=== PATIENT | male | born 1945 | race Caucasian/White ===

== ENCOUNTER → 2017-10-12 10:05 | Outpatient (CLI) | payer MEDICARE, OTHER, SELFPAY ==
[2017-10-12 10:56] LABS: BUN Creatinine Ratio 23.3 (6-22); Blood Urea Nitrogen 28 mg/dL (9-20); Estimated Glomerular Filt Rate 59.2 mL/min (>60)
== END ==
PROVIDERS: Visit Provider Family Medicine
DX: I10 Essential (primary) hypertension (principal); N18.3 Chronic kidney disease, stage 3 (moderate)
CPT/HCPCS: 36415; 82565; 84520

== ENCOUNTER → 2017-10-27 08:47 | Outpatient (CLI) | payer MEDICARE, OTHER, SELFPAY ==
[2017-10-27 10:21] LABS: Alanine Aminotransferase 35 IU/L (21-72); Albumin 4.2 g/dL (3.5-5.0); Albumin Globulin Ratio 1.5 (1.0-2.8); Alkaline Phosphatase 71 U/L (38-126); Aspartate Aminotransferase 39 IU/L (17-59); BUN Creatinine Ratio 20.8 (6-22); Bilirubin Total 0.7 mg/dL (0.2-1.3); Blood Urea Nitrogen 27 mg/dL (9-20); Calcium 9.6 mg/dL (8.4-10.2); Carbon Dioxide 27 mmol/L (22-32); Chloride 103 mmol/L (98-107); Cholesterol 131 mg/dL (140-199); Creatine Kinase 420 U/L (55-170); Globulin 2.8 g/dL (1.7-4.1); Glucose 96 mg/dL (80-110); HDL Cholesterol 41 mg/dL (40-60); HEMOLYSIS < 15 (0-50); LDL Cholesterol Calculated 79 mg/dL (<100); Potassium 4.3 mmol/L (3.4-5.1); Sodium 141 mmol/L (137-145); Triglycerides 54 mg/dL (35-150)
[2017-10-29 20:56] LABS: Aldolase 6.3 U/L (< 8.2)
== END ==
PROVIDERS: Visit Provider Internal Medicine Cardiovascular Disease
DX: I48.0 Paroxysmal atrial fibrillation (principal); E78.5 Hyperlipidemia, unspecified; I10 Essential (primary) hypertension; R74.8 Abnormal levels of other serum enzymes
CPT/HCPCS: 36415; 80053; 80061; 82085; 82550; 84443

== ENCOUNTER → 2017-11-24 12:00 | Outpatient (CLI) | payer MEDICARE, OTHER, SELFPAY ==
[2017-11-24 13:17] LABS: Creatine Kinase 345 U/L (55-170)
== END ==
PROVIDERS: Visit Provider Internal Medicine Cardiovascular Disease
DX: R74.8 Abnormal levels of other serum enzymes (principal)
CPT/HCPCS: 36415; 82550

== ENCOUNTER → 2018-01-25 09:02 | Outpatient (CLI) | payer OTHER, MEDICARE, SELFPAY ==
[2018-01-25 09:45] LABS: BUN Creatinine Ratio 26.7 (6-22); Blood Urea Nitrogen 32 mg/dL (9-20); Calcium 9.7 mg/dL (8.4-10.2); Carbon Dioxide 29 mmol/L (22-32); Chloride 102 mmol/L (98-107); Estimated Glomerular Filt Rate 59.2 mL/min (>60); Glucose 93 mg/dL (80-110); HEMOLYSIS < 15 (0-50); Potassium 4.7 mmol/L (3.4-5.1); Sodium 141 mmol/L (137-145)
== END ==
PROVIDERS: PCP Family Medicine; Visit Provider Family Medicine
DX: I10 Essential (primary) hypertension (principal); N18.3 Chronic kidney disease, stage 3 (moderate)
CPT/HCPCS: 36415; 80048

== ENCOUNTER → 2018-02-01 12:38 | Outpatient (CLI) | payer OTHER, MEDICARE, SELFPAY ==
[2018-02-01 13:39] LABS: Creatine Kinase 84 U/L (55-170)
[2018-02-01 15:50] LABS: BUN Creatinine Ratio 24.7 (6-22); Blood Urea Nitrogen 37 mg/dL (9-20); Calcium 9.8 mg/dL (8.4-10.2); Carbon Dioxide 30 mmol/L (22-32); Chloride 99 mmol/L (98-107); Estimated Glomerular Filt Rate 45.7 mL/min (>60); Glucose 95 mg/dL (80-110); HEMOLYSIS 16 (0-50); Potassium 4.8 mmol/L (3.4-5.1); Sodium 138 mmol/L (137-145)
== END ==
PROVIDERS: PCP Family Medicine; Visit Provider Internal Medicine Cardiovascular Disease
DX: R74.8 Abnormal levels of other serum enzymes (principal)
CPT/HCPCS: 36415; 80048; 82550

== ENCOUNTER → 2018-02-25 09:03 | Outpatient (CLI) | payer OTHER, MEDICARE, SELFPAY ==
[2018-02-25 09:49] LABS: Add Manual Diff / Slide Review NO; Eosinophils Percent Auto 7.1 % (2-4); Hematocrit 41.1 % (41-53); Hemoglobin 13.7 g/dL (13.5-17.5); Lymphocytes Percent Auto 19.6 % (25-40); Mean Corpuscular HGB Conc 33.3 % (30-36); Mean Corpuscular Hemoglobin 29.4 PG (26-34); Mean Corpuscular Volume 88.3 fL (80-100); Monocytes Percent Auto 8.3 % (3-14); Neutrophils Absolute Auto 2900 /uL (1500-7000); Platelet Count 194 X10^3/uL (150-400); Red Blood Cell Count 4.66 X10^6/uL (4.5-5.9); Red Cell Distribution Width 12.9 % (11.6-14.8); White Blood Cell Count 4.6 X10^3/uL (4.5-11.0)
[2018-02-25 10:16] LABS: Alanine Aminotransferase 34 IU/L (21-72); Albumin 4.4 g/dL (3.5-5.0); Albumin Globulin Ratio 1.5 (1.0-2.8); Alkaline Phosphatase 80 U/L (38-126); Aspartate Aminotransferase 30 IU/L (17-59); Bilirubin Total 0.5 mg/dL (0.2-1.3); Blood Urea Nitrogen 30 mg/dL (9-20); Calcium 9.6 mg/dL (8.4-10.2); Carbon Dioxide 26 mmol/L (22-32); Chloride 103 mmol/L (98-107); Cholesterol 250 mg/dL (140-199); Estimated Glomerular Filt Rate 59.2 mL/min (>60); Globulin 2.9 g/dL (1.7-4.1); Glucose 95 mg/dL (80-110); HDL Cholesterol 45 mg/dL (40-60); HEMOLYSIS < 15 (0-50); LDL Cholesterol Calculated 195 mg/dL (<100); Potassium 4.3 mmol/L (3.4-5.1); Sodium 139 mmol/L (137-145); Total Protein 7.3 g/dL (6.3-8.2); Triglycerides 49 mg/dL (35-150)
[2018-02-25 10:46] LABS: TSH w/ Reflex to FT4 1.46 uIU/mL (0.47-4.68)
[2018-02-25 10:48] LABS: Prostate Specific Antigen Scrn 2.03 ng/mL (0.1-4.0)
== END ==
PROVIDERS: PCP Family Medicine; Visit Provider Family Medicine
DX: I10 Essential (primary) hypertension (principal); E03.9 Hypothyroidism, unspecified; I48.0 Paroxysmal atrial fibrillation; N18.3 Chronic kidney disease, stage 3 (moderate); N40.1 Benign prostatic hyperplasia with lower urinary tract symptoms; R35.1 Nocturia; Z12.5 Encounter for screening for malignant neoplasm of prostate
CPT/HCPCS: 36415; 80053; 80061; 84443; 85025; G0103

== ENCOUNTER → 2018-03-23 13:48 | Outpatient (CLI) | payer OTHER, MEDICARE, SELFPAY ==
[2018-03-23 14:30] LABS: BUN Creatinine Ratio 23.6 (6-22); Blood Urea Nitrogen 26 mg/dL (9-20); Calcium 9.6 mg/dL (8.4-10.2); Carbon Dioxide 26 mmol/L (22-32); Chloride 101 mmol/L (98-107); Estimated Glomerular Filt Rate > 60.0 mL/min (>60); Glucose 98 mg/dL (80-110); HEMOLYSIS < 15 (0-50); Potassium 4.1 mmol/L (3.4-5.1); Sodium 137 mmol/L (137-145)
== END ==
PROVIDERS: Family Provider Family Medicine; PCP Family Medicine; Visit Provider Internal Medicine Cardiovascular Disease
DX: R06.02 Shortness of breath (principal)
CPT/HCPCS: 36415; 80048

== ENCOUNTER → 2018-03-24 10:28 | Outpatient (CLI) | payer OTHER, MEDICARE, SELFPAY ==
[2018-03-24 10:55] LABS: Add Manual Diff / Slide Review NO; Basophils Absolute Auto 100 /uL (0-100); Eosinophils Absolute Auto 100 /uL (0-450); Eosinophils Percent Auto 2.4 % (2-4); Hematocrit 41.3 % (41-53); Hemoglobin 13.7 g/dL (13.5-17.5); Lymphocytes Absolute Auto 800 /uL (1100-4500); Lymphocytes Percent Auto 15.3 % (25-40); Mean Corpuscular HGB Conc 33.2 % (30-36); Mean Corpuscular Hemoglobin 29.4 PG (26-34); Mean Corpuscular Volume 88.5 fL (80-100); Monocytes Absolute Auto 800 /uL (0-900); Monocytes Percent Auto 13.9 % (3-14); Neutrophils Absolute Auto 3700 /uL (1500-7000); Neutrophils Percent Auto 67.4 % (50-75); Platelet Count 176 X10^3/uL (150-400); Red Blood Cell Count 4.66 X10^6/uL (4.5-5.9); Red Cell Distribution Width 12.9 % (11.6-14.8); White Blood Cell Count 5.4 X10^3/uL (4.5-11.0)
[2018-03-24 11:48] LABS: Vitamin B12 749 pg/mL (239-931)
== END ==
PROVIDERS: Family Provider Family Medicine; PCP Family Medicine; Visit Provider Internal Medicine Cardiovascular Disease
DX: R06.02 Shortness of breath (principal); R41.3 Other amnesia
CPT/HCPCS: 36415; 82607; 85025

== ENCOUNTER → 2018-05-31 09:29 | Outpatient (CLI) | payer OTHER, MEDICARE, SELFPAY ==
--- NOTE | 2018-05-31 09:33 | DI.RAD.S_ITS ---
PROCEDURE: XR CHEST 2V INDICATIONS: elevated hemidiahpram TECHNIQUE: 2 views of the chest were acquired. COMPARISON: [facility], CR, XR CHEST 1 VIEW, 01/28/2018, 19:29. FINDINGS: Surgical changes and devices: None. Lungs and pleura: Lungs are clear. No pleural effusions or pneumothorax. Chronic right hemidiaphragm elevation redemonstrated. Mediastinum: Mediastinal contours are normal. Heart size is normal. Bones and chest wall: No suspicious bony abnormalities. Soft tissues appear unremarkable. IMPRESSION: Chronic right hemidiaphragm elevation. No acute cardiopulmonary disease process. Dictated by: Carmen Massey MD, PhD on 05/31/2018 at 9:57 Approved by: Carmen Massey MD, PhD on 05/31/2018 at 9:58
== END ==
PROVIDERS: Family Provider Family Medicine; PCP Family Medicine; Visit Provider Family Medicine
DX: J98.6 Disorders of diaphragm (principal)
CPT/HCPCS: 71046

== ENCOUNTER → 2018-09-03 16:09 | Outpatient (CLI) | payer OTHER, MEDICARE, SELFPAY ==
--- NOTE | 2018-09-17 16:11 | PM.PFT.1 ---
Pulmonary Function Test Referral & Results Date Patient Seen: 09/03/18 Requesting provider: Bud Griffith Results: The spirometry demonstrates an FVC of 4.18 L which is 85% of predicted. The FEV1 was measured at 2.96 L which is 82% of predicted. The FEV1/FVC ratio was 71 which is 96% of predicted. Following the administration of bronchodilator there was no appreciable change. Lung volumes show an SVC of 3.68 L which is 72% of predicted. The diffusing capacity was measured at 20.66 which is 75% of predicted. No hemoglobin value was provided, so no correction for potential anemia could be made, if appropriate. The maximum voluntary ventilation was normal Interpretation: This study demonstrates mild obstructive lung disease without evidence of benefit following bronchodilator There is more pronounced production lung volumes suggesting more significant restrictive lung disease Minimal reduction in diffusing capacity suggesting some element of disease of the capillary alveolar level is also present Clinical correlation suggested
== END ==
PROVIDERS: Family Provider Family Medicine; PCP Family Medicine; Visit Provider Family Medicine
DX: J98.6 Disorders of diaphragm (principal)
CPT/HCPCS: 94060; 94726; 94729

== ENCOUNTER → 2018-12-01 08:44 | Outpatient (CLI) | payer OTHER, MEDICARE, SELFPAY ==
--- NOTE | 2018-12-01 08:52 | DI.RAD.S_ITS ---
PROCEDURE: XR CHEST 2V INDICATIONS: left hemidiaphrragm paralisis TECHNIQUE: 2 views of the chest were acquired. COMPARISON: [facility], CR, XR CHEST 2V, 05/31/2018, 9:34. CT pulmonary angiogram 03/23/2018. FINDINGS: Surgical changes and devices: None. Lungs and pleura: Lungs are clear. No consolidation. No pleural effusions or pneumothorax. Mediastinum: Again seen is asymmetric elevation of the right hemidiaphragm in comparison to the left, although less pronounced. Mediastinal contours are normal and unchanged. Heart size is normal. Bones and chest wall: No suspicious bony abnormalities. Soft tissues appear unremarkable. IMPRESSION: 1. Asymmetric elevation of the right hemidiaphragm compared to the left. Diagnostic considerations include diaphragmatic paralysis versus diaphragmatic eventration. Fluoroscopic sniff test could be performed for real-time evaluation of diaphragmatic motion. 2. Lungs are clear. Dictated by: Daren Marcus M.D. on 12/01/2018 at 10:10 Approved by: Daren Marcus M.D. on 12/01/2018 at 10:13
== END ==
PROVIDERS: PCP Family Medicine; Visit Provider Family Medicine
DX: J98.6 Disorders of diaphragm (principal)
CPT/HCPCS: 71046

== ENCOUNTER 2018-12-07 06:35 | Day surgery (SDC) | payer OTHER, SELFPAY ==
[2018-12-07 07:33] VITALS: BP 129/90; PULSE 55; RESP 15; TEMP 36.5; O2SAT 95; BMI 30.2
--- NOTE | 2018-12-07 07:35 | PM.HP.1 ---
History of Present Illness History of Present Illness Date Patient Seen: 12/07/18 Time Patient Seen: 07:35 Chief complaint: [id number] SCREENING COLONOSCOPY Narrative: This is a 73-year-old man with history of AFib, HTN, CKD, SUKI, hyperlipidemia, aortic regurg, and a family history of colon cancer in her mother diagnosed at age 65. His last colonoscopy was 5 years ago, and per the patient no polyps were found at that time. He denies any symptoms of melena, hematochezia, abdominal pain, unexplained weight loss. He says his shortness of breath has improved, and he is asymptomatic today. ROS: Thirteen system review is negative other than as mentioned below and in HPI. PE: GENERAL: Well groomed and cooperative. Appears stated age. Answers questions promptly and appropriately. Vital signs noted. HENT: Normocephalic, atraumatic. Hearing intact. Oral mucosa is pink and moist. EYES: Conjunctiva pink, sclera white, no periorbital swelling. CARDIOVASCULAR: Regular rate. No pedal edema. RESPIRATORY: Normal respiratory rate, breathing comfortably on room air. GASTROINTESTINAL: Abdomen soft and non-distended GENITALURINARY: No flank tenderness. MUSCULOSKELETAL: Normal coordination. Equal tone and mass bilaterally. SKIN: Warm, dry, soft, appropriate color for ethnicity. No other lesions, rashes, or wounds. NEURO: Alert and Oriented X 3. No sensory deficits, or cognitive issues. PSYCH: Appropriate affect and mood. Patient History Medical History Acquired hypothyroidism (Chronic) Aortic valve regurgitation (Chronic) Atrial fibrillation (Chronic ~1999) Benign prostatic hyperplasia with nocturia (Chronic) BPH (benign prostatic hyperplasia) (Chronic ~1999) Carpal tunnel syndrome (Chronic) Cataract (Chronic) Chicken pox (Resolved) Chronic back pain (Chronic) Foot pain (Chronic) GERD (gastroesophageal reflux disease) (Chronic ~1999) Hearing loss (Chronic) Hyperlipidemia (Chronic ~1993) Hypertension (Chronic) Hypertension (Chronic ~2013) Hypothyroidism (Chronic ~1999) Infection of pelvis (Chronic) Kidney disease (Chronic ~2014) Measles (Resolved) Mitral valve insufficiency (Chronic) MRSA (methicillin resistant Staphylococcus aureus) (Resolved) Mumps (Resolved) Osteomyelitis (Chronic ~2000) Paroxysmal atrial fibrillation (Chronic) Spinal stenosis (Chronic ~2012) Stage 3 chronic kidney disease (Chronic 02/26/15) Surgical History History of spinal surgery (Resolved ~2012) Status post transurethral resection of prostate (~2009) Family & Social History Family History Mother No problems noted. Tobacco & Substance use: Smoking Status Never smoker alcohol intake current Meds Home Medications and Allergies Home Medications Medication Instructions Recorded Confirmed Type alprazolam 0.5 mg tablet 0.5 mg PO ONCE 07/21/17 12/07/18 History apixaban 5 mg tablet 5 mg PO BID #180 tab 02/03/18 12/07/18 Rx diltiazem HCl 240 mg 240 mg PO QDAY #90 cap 02/03/18 12/07/18 Rx capsule,extended release 24 hr diltiazem HCl 60 mg tablet 60 mg PO .PRN #30 tab 02/03/18 12/07/18 Rx doxazosin 8 mg tablet 8 mg PO HS #90 tab 02/03/18 12/07/18 Rx duloxetine 60 mg capsule,delayed 60 mg PO DAILY #90 cap 02/03/18 12/07/18 Rx release gabapentin 600 mg tablet 600 mg PO TID #270 tab 02/03/18 12/07/18 Rx levothyroxine 100 mcg tablet 100 mcg PO QAM #90 tab 02/03/18 12/07/18 Rx lisinopril 20 mg tablet 20 mg PO DAILY #90 tab 02/03/18 12/07/18 Rx rosuvastatin 10 mg tablet 5 mg PO .HS #45 tab 02/03/18 12/07/18 Rx rosuvastatin 5 mg tablet 5 mg PO DAILY 03/24/18 12/07/18 History ranitidine HCl 150 mg tablet 150 mg PO DAILY #90 tab 04/27/18 12/07/18 Rx Allergies Allergy/AdvReac Type Severity Reaction Status Date / Time venom-honey bee Allergy Mild LOCALIZED Verified 09/14/18 13:47 [bee venom (honey bee)] SWELLING atorvastatin [ATORVASTATIN] AdvReac Unknown MOOD Verified 09/14/18 13:47 DISORDER, ANGER Assessment & Plan Assessment and plan (1) Colon cancer high risk: Current visit: Yes Status: Acute Assessment & Plan narrative: The risks and benefits of colonoscopy and possible polypectomy were discussed the patient including risks of bleeding or perforation, need for surgical procedures. The patient desires to proceed with his screening colonoscopy.
[2018-12-07] MEDS: MIDAZOLAM 5 MG/5 ML VIAL IV (08:26)
[2018-12-07] MEDS: fentaNYL 250 MCG/5 ML INJ IV (08:26)
--- NOTE | 2018-12-07 08:29 | PM.OP.ENDO ---
Operative Date/Time/Diagnoses Date of procedure: 12/07/18 Time of procedure: 08:29 Pre-op diagnosis: Family history of colon cancer in a primary relative Post-op diagnosis: same Procedure & Clinicians Study performed: Screening colonoscopy to hepatic flexure Indications: Patient with family history of colon cancer in a primary relative. Surgeon: Velma Richard Procedure Notes SCOAP/Timeout: performed Procedure in detail: The patient was brought to the room and placed in left lateral decubitus position with all bony prominences padded. A time-out was performed and then the patient was given procedural sedation starting with 4 mg of Versed and 100 mg of fentanyl. Vitals were monitored throughout the procedure and remained stable. Once adequately sedated the procedure was begun. A rectal exam was performed revealing no abnormalities. The colonoscope was then introduced to the rectum and advanced in the usual fashion. The colon was very tortuous and floppy, and due to the looping of the scope we are now but able to get past the hepatic flexure. From that vantage point I was able to view the ascending colon, and no abnormalities were seen. The Cecum was identified by the mucosal try fold, and the ileocecal valve, but close of viewing of the cecum and the appendiceal orifice was not possible. The scope was then retracted while rotating side to side and examining each mucosal fold. Diverticulosis was seen in the sigmoid colon, with medium and small mouth diverticula. A few large mouth diverticula with false passages were seen in the distal sigmoid. No other abnormalities were noted on withdrawal of the scope. At the conclusion procedure retroflexion was performed and small grade 1-2 internal hemorrhoids without stigmata of bleeding were seen.. The scope was then withdrawn from the rectum the procedure was concluded. The patient tolerated the procedure well was transferred to the PACU in stable condition. Scope withdrawal time: 8 Sedation minutes: 25 Findings: diverticulosis Specimen(s): none sent Complications: none Impression: Diverticulosis, otherwise normal colon to the hepatic flexure Post-procedure Recommendations: Colonscopy in 5 years (Due to family history, and colonoscopy to hepatic flexure) Follow up: as needed Disposition: PACU
[2018-12-07 08:30] VITALS: BP 98/52; PULSE 53; RESP 10; TEMP 36.9; O2SAT 95
[2018-12-07 08:35] VITALS: BP 108/56; PULSE 61; RESP 12; TEMP 36.9; O2SAT 95
[2018-12-07 08:40] VITALS: BP 100/53; PULSE 52; RESP 12; O2SAT 95
[2018-12-07 08:44] VITALS: BP 106/56; PULSE 60; RESP 16; TEMP 37.2; O2SAT 95
[2018-12-07 08:55] VITALS: BP 105/55; PULSE 60; RESP 16; O2SAT 95
== END 2018-12-07 09:00 | disposition home or self-care (01) ==
PROVIDERS: PCP Family Medicine; Visit Provider Surgery
PROC: 0DJD8ZZ Inspection of Lower Intestinal Tract, Via Natural or Artificial Opening Endoscopic (ICD-10-PCS; CPT 45378; principal; 2018-12-07 07:45)
DX: Z12.11 Encounter for screening for malignant neoplasm of colon (principal); Z80.0 Family history of malignant neoplasm of digestive organs; I48.91 Unspecified atrial fibrillation; N18.9 Chronic kidney disease, unspecified; G47.33 Obstructive sleep apnea (adult) (pediatric); E78.5 Hyperlipidemia, unspecified; K57.30 Diverticulosis of large intestine without perforation or abscess without bleeding; K64.0 First degree hemorrhoids
CPT/HCPCS: 45378; 99152; J2250; J3010

== ENCOUNTER → 2019-03-24 15:56 | Outpatient (CLI) | payer OTHER, MEDICARE, SELFPAY ==
--- NOTE | 2019-03-24 15:59 | DI.RAD.S_ITS ---
PROCEDURE: XR CHEST 2V INDICATIONS: 6 mo fu hemidiaphragm paralysis TECHNIQUE: 2 views of the chest were acquired. COMPARISON: [facility], CR, XR CHEST 2V, 12/01/2018, 8:49. FINDINGS: Surgical changes and devices: None. Lungs and pleura: Low lung volumes with scattered subsegmental atelectasis/scarring. Elevation of the right hemidiaphragm although to a lesser extent compared to the prior study dated 12/01/18. No pleural effusions or pneumothorax. Mediastinum: Mediastinal contours are normal. Heart size is normal. Bones and chest wall: No suspicious bony abnormalities. Soft tissues appear unremarkable. IMPRESSION: Low lung volumes with scattered subsegmental atelectasis/scarring. Persistent elevation of the right hemidiaphragm, although less conspicuous since the prior study, however unclear if this appearance is related to respiratory phase. Dictated by: Andrew Jacob M.D. on 03/24/2019 at 16:34 Approved by: Andrew Jacob M.D. on 03/24/2019 at 16:35
== END ==
PROVIDERS: PCP Family Medicine; Referring Provider Family Medicine; Visit Provider Family Medicine
DX: J98.6 Disorders of diaphragm (principal)
CPT/HCPCS: 71046

== ENCOUNTER → 2019-03-25 08:41 | Outpatient (CLI) | payer OTHER, MEDICARE, SELFPAY ==
[2019-03-25 09:27] LABS: Hematocrit 41.2 % (41-53); Hemoglobin 14.1 g/dL (13.5-17.5); Mean Corpuscular HGB Conc 34.1 % (30-36); Mean Corpuscular Hemoglobin 29.9 PG (26-34); Mean Corpuscular Volume 87.7 fL (80-100); Platelet Count 181 X10^3/uL (150-400); White Blood Cell Count 7.1 X10^3/uL (4.5-11.0)
[2019-03-25 09:49] LABS: Alanine Aminotransferase 25 IU/L (<50); Albumin 4.3 g/dL (3.5-5.0); Albumin Globulin Ratio 1.3 (1.0-2.8); Alkaline Phosphatase 95 U/L (38-126); Aspartate Aminotransferase 36 IU/L (17-59); BUN Creatinine Ratio 20.9 (6-22); Bilirubin Total 0.5 mg/dL (0.2-1.3); Blood Urea Nitrogen 23 mg/dL (9-20); Calcium 9.7 mg/dL (8.4-10.2); Carbon Dioxide 25 mmol/L (22-32); Chloride 104 mmol/L (98-107); Cholesterol 133 mg/dL (140-199); Estimated Glomerular Filt Rate > 60.0 mL/min (>60); Globulin 3.2 g/dL (1.7-4.1); Glucose 113 mg/dL (80-110); HDL Cholesterol 33 mg/dL (40-60); HEMOLYSIS < 15 (0-50); LDL Cholesterol Calculated 88 mg/dL (<100); Neutrophils Absolute Manual 5751 /uL (3000-5900); Sodium 139 mmol/L (137-145); Total Cells Counted 100; Total Protein 7.5 g/dL (6.3-8.2); Triglycerides 58 mg/dL (35-150)
[2019-03-25 09:50] LABS: RBC Morphology Normal Morphology
[2019-03-25 10:14] LABS: Prostate Specific Antigen Scrn 1.91 ng/mL (0.1-4.0)
[2019-03-25 10:26] LABS: TSH w/ Reflex to FT4 2.21 uIU/mL (0.47-4.68)
== END ==
PROVIDERS: PCP Family Medicine; Referring Provider Family Medicine; Visit Provider Family Medicine
DX: E03.9 Hypothyroidism, unspecified (principal); E78.5 Hyperlipidemia, unspecified; G47.33 Obstructive sleep apnea (adult) (pediatric); I48.0 Paroxysmal atrial fibrillation; N40.1 Benign prostatic hyperplasia with lower urinary tract symptoms; R35.1 Nocturia; Z12.5 Encounter for screening for malignant neoplasm of prostate
CPT/HCPCS: 36415; 80053; 80061; 84443; 85025; G0103

== ENCOUNTER → 2020-03-15 14:32 | Outpatient (CLI) | payer OTHER, MEDICARE, SELFPAY ==
--- NOTE | 2020-03-15 15:16 | DI.RAD.S_ITS ---
PROCEDURE: XR ANKLE RT MIN 3V INDICATIONS: R ankle swelling and pain TECHNIQUE: 3 views of the ankle were acquired. COMPARISON: None. FINDINGS: Bones: No fractures or dislocations. Smooth, well corticated osseous density adjacent to the tip of the medial malleolus. Ankle mortise is normally aligned. No suspicious bony lesions. Soft tissues: No tibiotalar joint effusion. Achilles tendon appears normal. Mild medial lateral soft tissue swelling. IMPRESSION: Osseous density adjacent to the tip of the medial malleolus suspicious for remote injury versus bony ossicle. Dictated by: Flash Roy [facility] Interpreted: Carlos Shirley MD on 03/15/2020 at 15:47 Approved by: Carlos Shirley M.D. on 03/15/2020 at 17:01
[2020-03-15 15:18] LABS: Add Manual Diff / Slide Review NO; Basophils Absolute Auto 0 /uL (0-100); Basophils Percent Auto 0.6 % (0-2); Eosinophils Absolute Auto 400 /uL (0-450); Eosinophils Percent Auto 5.6 % (2-4); Hematocrit 41.9 % (41-53); Hemoglobin 13.6 g/dL (13.5-17.5); Lymphocytes Absolute Auto 1100 /uL (1100-4500); Lymphocytes Percent Auto 14.5 % (25-40); Mean Corpuscular HGB Conc 32.4 % (30-36); Mean Corpuscular Hemoglobin 28.9 PG (26-34); Mean Corpuscular Volume 89.1 fL (80-100); Monocytes Absolute Auto 600 /uL (0-900); Monocytes Percent Auto 7.7 % (3-14); Neutrophils Absolute Auto 5600 /uL (1500-7000); Neutrophils Percent Auto 71.6 % (50-75); Platelet Count 193 X10^3/uL (150-400); White Blood Cell Count 7.8 X10^3/uL (4.5-11.0)
[2020-03-15 18:05] LABS: C-Reactive Protein Quant 0.8 mg/dL (<1.0)
[2020-03-15 19:57] LABS: Alanine Aminotransferase 25 IU/L (<50); Albumin 4.3 g/dL (3.5-5.0); Albumin Globulin Ratio 1.4 (1.0-2.8); Alkaline Phosphatase 104 U/L (38-126); Aspartate Aminotransferase 64 IU/L (17-59); BUN Creatinine Ratio 26.8 (6-22); Bilirubin Total 0.4 mg/dL (0.2-1.3); Blood Urea Nitrogen 30 mg/dL (9-20); Calcium 9.8 mg/dL (8.4-10.2); Carbon Dioxide 27 mmol/L (22-32); Chloride 106 mmol/L (98-107); Estimated Glomerular Filt Rate > 60.0 mL/min (>60); Glucose 86 mg/dL (80-110); HEMOLYSIS < 15 (0-50); Sodium 138 mmol/L (137-145); Total Protein 7.3 g/dL (6.3-8.2); Uric Acid 5.4 mg/dL (3.5-8.5)
[2020-03-15 20:04] LABS: Erythrocyte Sedimentation Rate 11 MM/HR (0-15)
== END ==
PROVIDERS: PCP Family Medicine; Referring Provider Nurse Practitioner; Visit Provider Nurse Practitioner
DX: M25.473 Effusion, unspecified ankle (principal); M25.571 Pain in right ankle and joints of right foot
CPT/HCPCS: 36415; 73610; 80053; 84550; 85025; 85651; 86140

== ENCOUNTER → 2020-03-29 07:24 | Outpatient (CLI) | payer MEDICARE, OTHER, SELFPAY ==
[2020-03-29 08:27] LABS: Add Manual Diff / Slide Review NO; Basophils Absolute Auto 0 /uL (0-100); Basophils Percent Auto 0.7 % (0-2); Eosinophils Absolute Auto 300 /uL (0-450); Eosinophils Percent Auto 5.5 % (2-4); Hemoglobin 14.1 g/dL (13.5-17.5); Lymphocytes Absolute Auto 1000 /uL (1100-4500); Lymphocytes Percent Auto 16.5 % (25-40); Mean Corpuscular HGB Conc 32.7 % (30-36); Mean Corpuscular Hemoglobin 29.2 PG (26-34); Mean Corpuscular Volume 89.3 fL (80-100); Monocytes Absolute Auto 500 /uL (0-900); Monocytes Percent Auto 7.9 % (3-14); Neutrophils Absolute Auto 4000 /uL (1500-7000); Neutrophils Percent Auto 69.4 % (50-75); Platelet Count 179 X10^3/uL (150-400); Red Blood Cell Count 4.82 X10^6/uL (4.5-5.9); Red Cell Distribution Width 12.8 % (11.6-14.8); White Blood Cell Count 5.8 X10^3/uL (4.5-11.0)
[2020-03-29 08:59] LABS: Alanine Aminotransferase 23 IU/L (<50); Albumin 4.3 g/dL (3.5-5.0); Albumin Globulin Ratio 1.5 (1.0-2.8); Alkaline Phosphatase 89 U/L (38-126); Aspartate Aminotransferase 34 IU/L (17-59); BUN Creatinine Ratio 27.3 (6-22); Bilirubin Total 0.5 mg/dL (0.2-1.3); Blood Urea Nitrogen 33 mg/dL (9-20); Calcium 9.8 mg/dL (8.4-10.2); Carbon Dioxide 29 mmol/L (22-32); Chloride 103 mmol/L (98-107); Cholesterol 179 mg/dL (140-199); Estimated Glomerular Filt Rate 58.3 mL/min (>60); Globulin 2.9 g/dL (1.7-4.1); Glucose 101 mg/dL (80-110); HDL Cholesterol 46 mg/dL (40-60); HEMOLYSIS < 15 (0-50); LDL Cholesterol Calculated 119 mg/dL (<100); Potassium 4.2 mmol/L (3.4-5.1); Sodium 136 mmol/L (137-145); Total Protein 7.2 g/dL (6.3-8.2); Triglycerides 70 mg/dL (35-150)
[2020-03-29 09:27] LABS: Prostate Specific Antigen Scrn 1.73 ng/mL (0.1-4.0); Thyroid Stimulating Hormone 1.98 uIU/mL (0.47-4.68)
== END ==
PROVIDERS: PCP Family Medicine; Referring Provider Family Medicine; Visit Provider Family Medicine
DX: E03.9 Hypothyroidism, unspecified (principal); E78.5 Hyperlipidemia, unspecified; I10 Essential (primary) hypertension; N40.1 Benign prostatic hyperplasia with lower urinary tract symptoms; R35.1 Nocturia; Z12.5 Encounter for screening for malignant neoplasm of prostate
CPT/HCPCS: 36415; 80053; 80061; 84443; 85025; G0103

== ENCOUNTER 2020-07-25 18:06 | Emergency (ER) | payer OTHER, SELFPAY ==
[2020-07-25 18:10] VITALS: BP 185/92; PULSE 81; RESP 16; O2SAT 97
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
[2020-07-25 18:41] VITALS: PULSE 75; RESP 23; O2SAT 99
[2020-07-25 18:45] VITALS: BP 206/95; PULSE 73; RESP 22; O2SAT 99
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
[2020-07-25 19:00] VITALS: BP 159/75; PULSE 68; RESP 20; O2SAT 98
[2020-07-25 19:30] VITALS: BP 183/85; PULSE 67; RESP 18; O2SAT 99
== END 2020-07-25 19:33 | disposition home or self-care (01) ==
PROVIDERS: Emergency Provider Emergency Medicine; PCP Family Medicine
DX: S09.90XA Unspecified injury of head, initial encounter (principal); M25.552 Pain in left hip; V89.2XXA Person injured in unspecified motor-vehicle accident, traffic, initial encounter; Z79.01 Long term (current) use of anticoagulants
CPT/HCPCS: 70450; 72170; 99284

== ENCOUNTER → 2021-06-11 07:43 | Outpatient (CLI) | payer OTHER, SELFPAY ==
[2021-06-11 08:41] LABS: Add Manual Diff / Slide Review NO; Basophils Absolute Auto 0 /uL (0-100); Basophils Percent Auto 0.5 % (0-2); Eosinophils Absolute Auto 300 /uL (0-450); Eosinophils Percent Auto 4.7 % (2-4); Hematocrit 41.8 % (41-53); Lymphocytes Absolute Auto 900 /uL (1100-4500); Lymphocytes Percent Auto 14.7 % (25-40); Mean Corpuscular HGB Conc 33.5 % (30-36); Mean Corpuscular Hemoglobin 29.9 PG (26-34); Mean Corpuscular Volume 89.3 fL (80-100); Monocytes Absolute Auto 400 /uL (0-900); Monocytes Percent Auto 7.1 % (3-14); Neutrophils Absolute Auto 4500 /uL (1500-7000); Platelet Count 168 X10^3/uL (150-400); Red Blood Cell Count 4.68 X10^6/uL (4.5-5.9); Red Cell Distribution Width 13.9 % (11.6-14.8); White Blood Cell Count 6.2 X10^3/uL (4.5-11.0)
[2021-06-11 09:00] LABS: Alanine Aminotransferase 27 IU/L (<50); Albumin 4.3 g/dL (3.5-5.0); Albumin Globulin Ratio 1.5 (1.0-2.8); Alkaline Phosphatase 84 U/L (38-126); Aspartate Aminotransferase 37 IU/L (17-59); Bilirubin Total 0.6 mg/dL (0.2-1.3); Blood Urea Nitrogen 25 mg/dL (9-20); Calcium 9.7 mg/dL (8.4-10.2); Carbon Dioxide 30 mmol/L (22-32); Chloride 105 mmol/L (98-107); Cholesterol 173 mg/dL (140-199); Estimated Glomerular Filt Rate > 60 mL/min (>60); Globulin 2.8 g/dL (1.7-4.1); Glucose 104 mg/dL (80-110); HDL Cholesterol 48 mg/dL (40-60); HEMOLYSIS < 15 (0-50); LDL Cholesterol Calculated 112 mg/dL (<100); Potassium 4.3 mmol/L (3.4-5.1); Sodium 142 mmol/L (137-145); Total Protein 7.1 g/dL (6.3-8.2); Triglycerides 64 mg/dL (35-150)
[2021-06-11 09:28] LABS: TSH w/ Reflex to FT4 2.44 uIU/mL (0.47-4.68)
[2021-06-11 09:29] LABS: Prostate Specific Antigen 1.67 ng/mL (0.10-4.00)
== END ==
PROVIDERS: PCP Family Medicine; Referring Provider Family Medicine; Visit Provider Family Medicine
DX: E03.9 Hypothyroidism, unspecified (principal); E78.5 Hyperlipidemia, unspecified; I48.0 Paroxysmal atrial fibrillation
CPT/HCPCS: 36415; 80053; 80061; 84153; 84443; 85025

== ENCOUNTER → 2022-03-14 16:17 | Outpatient (CLI) | payer OTHER, SELFPAY ==
--- NOTE | 2022-03-14 16:20 | DI.MRI.S_ITS ---
PROCEDURE: MR LUMBAR SPINE WO CON INDICATIONS: lbp with weekness on left side TECHNIQUE: Noncontrast sagittal T1 spin echo and T2 fast echo, sagittal STIR, and T2 fast spin echo through the lumbar spine. In cases with scoliosis, additional coronal T2 fast spin echo may be performed. COMPARISON: [facility], , L-SPINE WITHOUT CONTRAST, 09/07/2012, 8:46. FINDINGS: Image quality: Excellent. Alignment and Curvature: No plain films are available for comparison, for numbering purposes. Thus, for the purposes of this examination, 5 lumbar type vertebral bodies will be presumed, as denoted on the montage panel. This should be confirmed and correlated with plain films, prior to any lumbar spinal intervention. There is loss of normal lumbar lordosis. 3 mm of retrolisthesis T12 on L1 and L1-L2. 4 mm of retrolisthesis of L2 on L3. 2 mm of retrolisthesis of L3 on L4. 3 mm of retrolisthesis of L4 on L5. Bone Marrow: Marrow is of normal overall signal. No acute vertebral body compression fractures. Mild reactive signal throughout the endplates of the thoracolumbar spine. Spinal Cord: Conus medullaris terminates at the lower L1 level. Visualized cord demonstrates normal signal and size. Paraspinous Soft Tissues: No paravertebral masses. T12-L1: Moderate disc height loss and desiccation. Mild diffuse disc bulge. Mild facet and ligamentum flavum hypertrophy. Mild canal stenosis. No foraminal stenosis. No significant change. L1-L2: Moderate disc desiccation. Mild disc height loss and diffuse disc bulge. Mild facet and ligamentum flavum hypertrophy. Mild canal stenosis. Mild bilateral foraminal stenosis. L2-L3: Moderate disc desiccation. Mild disc height loss and diffuse disc bulge. Mild facet and ligamentum flavum hypertrophy. Mild canal stenosis. Mild bilateral foraminal stenosis. No significant change. L3-L4: Severe disc height loss and desiccation. Mild diffuse disc bulge. Mild facet and ligamentum flavum hypertrophy. Mild epidural lipomatosis. Mild canal stenosis. Moderate to severe right and moderate left foraminal stenosis. Mild right L3 nerve root compression. No significant change. L4-L5: Moderate disc height loss and desiccation. Mild diffuse disc bulge. Mild facet and ligamentum flavum hypertrophy. Mild epidural lipomatosis. Mild canal stenosis. Moderate subarticular foraminal stenosis bilaterally. No significant change. L5-S1: Moderate disc height loss and desiccation. Mild diffuse disc bulge. Moderate bilateral facet hypertrophy. Mild canal stenosis. Severe left and moderate right subarticular foraminal stenosis. Left L5 nerve root compression. No significant change. IMPRESSION: 1. Multilevel degenerative disc and facet disease, as well as ligamentum flavum hypertrophy and epidural lipomatosis. 2. Mild multilevel canal stenosis. 3. Multilevel foraminal stenoses, worst at L3-L4 and L5-S1 where there is associated intraforaminal nerve root compression. Recommend correlation with clinical symptoms to ascertain relevance of these findings. 4. 5 lumbar type vertebral bodies were presumed for the current report. Plain films of the lumbar spine are recommended for confirmation, prior to any lumbar spinal intervention. Dictated by: Grant Schmidt M.D. on 03/17/2022 at 8:26 Approved by: Grant Schmidt M.D. on 03/17/2022 at 8:47
== END ==
PROVIDERS: PCP Family Medicine; Referring Provider Family Medicine; Visit Provider Family Medicine
DX: M51.16 Intervertebral disc disorders with radiculopathy, lumbar region (principal); M51.17 Intervertebral disc disorders with radiculopathy, lumbosacral region; M48.061 Spinal stenosis, lumbar region without neurogenic claudication; M48.07 Spinal stenosis, lumbosacral region
CPT/HCPCS: 72148

== ENCOUNTER → 2022-03-19 09:47 | Outpatient (CLI) | payer OTHER, SELFPAY ==
--- NOTE | 2022-03-19 09:49 | DI.RAD.S_ITS ---
PROCEDURE: XR LUMBAR SPINE 2-3V INDICATIONS: low back pain with sciatica on left side TECHNIQUE: 3 views of the lumbar spine were acquired. COMPARISON: [facility], MR, MR LUMBAR SPINE WO CON, 03/14/2022, 17:09. FINDINGS: Bones: 5 [id number] vertebrae are present. Mild left convexity curvature centered at L2-L3. Severe multilevel degenerative changes with disc height loss, endplate spurring, and facet arthropathy. 3 millimeters retrolisthesis L2 on L3, 4 millimeters retrolisthesis L1 on L2. No vertebral body compression fractures. No suspicious bony lesions. Soft tissues: Overlying bowel gas pattern is normal. No suspicious soft tissue calcifications. IMPRESSION: Multilevel degenerative changes of the lumbar spine. Dictated by: Aroldo Burrell M.D. on 03/19/2022 at 16:47 Approved by: Aroldo Burrell M.D. on 03/19/2022 at 17:02
== END ==
PROVIDERS: PCP Family Medicine; Referring Provider Family Medicine; Visit Provider Family Medicine
DX: M54.42 Lumbago with sciatica, left side (principal); M47.816 Spondylosis without myelopathy or radiculopathy, lumbar region
CPT/HCPCS: 72100

== ENCOUNTER 2022-03-22 19:28 | Emergency (ER) | payer OTHER, SELFPAY ==
[2022-03-22] VITALS (16 sets, daily range): BP systolic 118–174; BP diastolic 60–87; PULSE 49–73; RESP 14–31; TEMP 36.4; O2SAT 94–97; BMI 31.8
--- NOTE | 2022-03-22 19:50 | ED_ITS ---
HPI - Chest Pain General Chief Complaint: Chest Pain Stated Complaint: chest pressure/pounding x3 hours Time Seen by Provider: 03/22/22 19:49 Source: patient Mode of arrival: Ambulatory Limitations: no limitations History of Present Illness HPI narrative: 68-year-old gentleman with a history of severe aortic stenosis currently being worked up for TAVR, hypertension, hyperlipidemia, chronic back pain, atrial fibrillation post cardiac ablation in 2018 continues on apixaban. He had a heart catheterization in anticipation of the TAVR done 2 days ago at [facility]. Heart catheterization showed no significant coronary artery abnormalities or stenosis. 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 Does not describe it as pain, squeezing or palpitations. With previous episodes of atrial fibrillation he always knew that there was a rhythm change and he describes it similar to that. There is no diaphoresis, orthopnea, nausea and has not had any recent upper respiratory or other infectious etiologies. He notes that he sometimes feels slightly better when lying reclined. Symptoms have been ongoing now for approximately 8 hours. Related Data Home Medications Medication Instructions Recorded Confirmed rosuvastatin 10 mg tablet 5 mg PO DAILY 11/21/21 03/13/22 Previous Rx's Medication Instructions Recorded apixaban 5 mg tablet (Eliquis) 5 mg PO BID #180 tabs 04/04/21 betamethasone dipropionate 0.05 % 1 applic topical BID PRN rash #120 04/04/21 topical cream grams clobetasol 0.05 % topical cream 1 applic topical BID 2 weeks #60 04/04/21 grams diltiazem HCl 240 mg 240 mg PO QDAY #90 caps 04/04/21 capsule,extended release 24 hr diltiazem HCl 60 mg tablet 60 mg PO .PRN #60 tabs 04/04/21 doxazosin 8 mg tablet 8 mg PO HS #90 tabs 04/04/21 duloxetine 60 mg capsule,delayed 60 mg PO DAILY #90 caps 04/04/21 release epinephrine 0.3 mg/0.3 mL 0.3 mg (0.3 mL) IM ONCE #2 ea 04/04/21 injection, auto-injector (EpiPen 2-Justin) gabapentin 600 mg tablet 600 mg PO TID #270 tabs 04/04/21 (Neurontin) levothyroxine 100 mcg tablet 100 mcg PO QAM #90 tabs 04/04/21 triamcinolone acetonide 0.5 % 1 applic topical BID #60 grams 04/04/21 topical ointment lisinopril 40 mg tablet 40 mg PO BID #180 tabs 06/13/21 psyllium husk 3.4 gram/5.4 gram 1 tbsp PO BID #660 grams 06/13/21 oral powder (Metamucil) diclofenac sodium 1 % topical gel 4 g topical QID #100 grams 06/14/21 (Arthritis Pain (diclofenac)) alprazolam 0.5 mg tablet 0.5 mg PO ONCE #2 tabs 11/21/21 methylprednisolone 4 mg tablets in 4 mg PO DAILY #21 ea 03/13/22 a dose pack Allergies Allergy/AdvReac Type Severity Reaction Status Date / Time venom-honey bee Allergy Mild LOCALIZED Verified 03/13/22 13:41 [bee venom (honey bee)] SWELLING atorvastatin [ATORVASTATIN] AdvReac Unknown MOOD Verified 03/13/22 13:41 DISORDER, ANGER Review of Systems Review of Systems Narrative: Remainder of complete review of systems is otherwise unremarkable except for that included in the HPI. Patient History Medical History Aortic valve regurgitation Benign prostatic hyperplasia with nocturia BPH (benign prostatic hyperplasia) (~1999) Carpal tunnel syndrome Cataract Chicken pox Chronic back pain Colon cancer high risk Excessive daytime sleepiness Foot pain GERD (gastroesophageal reflux disease) (~1999) H/O severe sun exposure Hearing loss Hyperlipidemia (~1993) Hypertension Hypothyroidism (~1999) Infection of pelvis Kidney disease (~2014) Left arm weakness Lumbar degenerative disc disease Lumbar radiculopathy Measles Mental status change resolved Mitral valve insufficiency MRSA (methicillin resistant Staphylococcus aureus) Mumps Nose abnormality Obstructive sleep apnea of adult Osteomyelitis (~2000) Paroxysmal atrial fibrillation Spinal stenosis (~2012) Stage 3 chronic kidney disease (02/26/15) Surgical History History of spinal surgery (~2012) Status post transurethral resection of prostate (~2009) Family History Mother No problems noted. Social History marital status: (to Bucky) details: lives in [place] number of children: 2 household members: spouse lives independently: Yes caregiver/support person: No housing: house lyssa/sikh: Catholic Smoking Status: Never smoker alcohol intake: current substance use type: does not use Smoking Status: Never smoker Substance Use Type: does not use Exam Initial Vital Signs Initial Vital Signs: Vital Signs Temperature 97.6 F 03/22/22 19:33 Pulse Rate 68 03/22/22 19:33 Respiratory Rate 16 03/22/22 19:33 Blood Pressure 163/87 H 03/22/22 19:33 Oxygen Delivery Method 03/22/22 19:33 General: Healthy appearing, in no acute distress. Able to give a complete and coherent history. Well-nourished well-developed HEENT: Moist mucous membranes, normal sclera with reactive pupils, Neck: No JVD, supple Respiratory: Lungs are clear to auscultation, no wheezing no rales no rhonchi. Full and symmetrical air movement Cardiac: Regular rate and rhythm, 4/6 systolic ejection murmur Abdomen: Soft, nontender, good bowel tones, no flank pain Skin: Warm and dry, no rashes Neurologic: Grossly neurologically intact with no obvious asymmetries or abnormalities Extremities: No trauma, well perfused Psych: Anxious but Cooperative, appropriate insight and affect Course Orders Ordered: ED Orders 03/22/22 19:50 Complete Blood Count AUTO DIFF Stat Comprehensive Metabolic Panel Stat Lipase Stat Troponin & CK Cardiac Panel Stat 03/22/22 19:54 XR chest 1V Stat EKG-12 Lead Stat Discontinued Medications Aspirin (Aspirin 81 Mg Chew Tab) 324 mg PO NOW ONE Stop: 03/22/22 20:05 Last Admin: 03/22/22 20:07 Dose: 324 mg Documented By: NR Nitroglycerin (Nitroglycerin 0.4 Mg Sl Tab) 0.4 mg SL [id number] PRN PRN Reason: Chest Pain Last Admin: 03/22/22 20:24 Dose: 0.4 mg Documented By: Admin: 03/22/22 20:17 Dose: 0.4 mg Documented By: Admin: 03/22/22 20:10 Dose: 0.4 mg Documented By: NR Vital Signs Vital signs: Vital Signs - 8 hr 03/22/22 19:33 03/22/22 19:56 03/22/22 19:57 Temperature 97.6 F Pulse Rate 68 69 Respiratory Rate 16 Blood Pressure 163/87 H 174/85 H Pulse Oximetry 96 Oxygen Delivery Method Room Air 03/22/22 19:57 03/22/22 20:00 03/22/22 20:00 Temperature Pulse Rate 66 64 Respiratory Rate 26 H 25 H Blood Pressure 159/78 H Pulse Oximetry 96 96 Oxygen Delivery Method 03/22/22 20:10 03/22/22 20:17 03/22/22 20:24 Temperature Pulse Rate 70 68 65 Respiratory Rate Blood Pressure 158/78 H 136/68 134/68 Pulse Oximetry Oxygen Delivery Method MDM - Chest Pain Lab Data 03/22/22 19:50 03/22/22 19:50 Labs: Lab Results 03/22/22 03/22/22 Range/Units 19:50 19:50 WBC 9.1 (4.5-11.0) X10^3/uL RBC 4.56 (4.5-5.9) X10^6/uL Hgb 13.4 L (13.5-17.5) g/dL Hct 40.3 L (41-53) % MCV 88.4 (80-100) fL MCH 29.3 (26-34) PG MCHC 33.2 (30-36) % RDW 13.5 (11.6-14.8) % Plt Count 199 (150-400) X10^3/uL Neut % (Auto) 69.0 (50-75) % Lymph % (Auto) 16.1 L (25-40) % [place] % (Auto) 8.7 (3-14) % Eos % (Auto) 5.5 H (2-4) % Baso % (Auto) 0.7 (0-2) % Neut # (Auto) 6300 (4300-7789) /uL Lymph # (Auto) 1500 (5041-5293) /uL [place] # (Auto) 800 (0-900) /uL Eos # (Auto) 500 H (0-450) /uL Baso # (Auto) 100 (0-100) /uL Sodium 133 L (137-145) mmol/L Potassium 4.2 (3.4-5.1) mmol/L Chloride 98 (98-107) mmol/L Carbon Dioxide 28 (22-32) mmol/L BUN 27 H (9-20) mg/dL Creatinine 1.20 (0.66-1.25) mg/dL Estimated GFR > 60 (>60) mL/min BUN/Creatinine Ratio 22.5 H (6-22) Glucose 108 (80-110) mg/dL Calcium 9.6 (8.4-10.2) mg/dL Total Bilirubin 0.4 (0.2-1.3) mg/dL AST 28 (17-59) IU/L ALT 30 (<50) IU/L Alkaline Phosphatase 124 (38-126) U/L Total Creatine Kinase 190 H (55-170) U/L CK-MB (CK-2) 5.31 H (<2.37) ng/mL CK-MB (CK-2) Rel Index 2.8 (1.5-5.0) % Troponin I 0.026 (0.01-0.034) ng/mL Total Protein 7.1 (6.3-8.2) g/dL Albumin 4.0 (3.5-5.0) g/dL Globulin 3.1 (1.7-4.1) g/dL Albumin/Globulin Ratio 1.3 (1.0-2.8) Lipase 151 (23-300) U/L Imaging Data Chest x-ray: Radiologist's Impression: FINDINGS:? ? Surgical changes and devices:? None.? ? Lungs and pleura:? Lungs are clear.? No pleural effusions or pneumothorax.? ? Mediastinum:? Mediastinal contours appear normal.? Heart size is normal.? ? Bones and chest wall:? No suspicious bony lesions.? Overlying soft tissues appear unremarkable.? ? IMPRESSION:? Normal for age, source of current chest pain symptoms is not seen. ? ? Dictated by: Eddie Almonte M.D. on 03/22/2022 at 20:52 ? ? ECG Data Interpretation: Sinus rhythm at a rate of 66, first-degree block, normal axis No acute ischemic changes MDM Narrative Medical decision making narrative: CC: Chest sensation as if he can feel his heart. Uncertain diagnosis, new problem, potential for systemic symptoms Complicating co-morbidities: Critical aortic stenosis being worked up for TAVR. Left heart catheterization onto 2 did not show significant atherosclerotic disease Corroborating data: Data collected from: patient, Medical records reviewed: Cardiology notes, primary care notes, heart cath eterization report from [facility] Differential considered: Arrhythmia, pulmonary embolism, acute coronary syndrome, symptomatic aortic stenosis, pneumothorax, infectious etiology, dissection Exam documented above, pertinent findings include: Lab Test results independently reviewed as above. Pertinent findings: CBC is unremarkable Chemistries are unremarkable CK is minimally elevated at 190, normal is 170 or lower. CK-MB fraction and troponin are both negative Independently reviewed EKG as above Imaging studies independently reviewed: Chest x-ray is unremarkable Discussion: Patient is re-evaluated and finds that his chest sensation is somewhat better. Reviewed with both he and his all of the workup and negative findings that we have identified. At this time I do not think that this is an anginal equivalent or anginal equivalent related to his critical aortic stenosis. There is no sign of infection, acute coronary syndrome, pneumothorax, intra-abdominal abnormality. Reviewed all findings with patient and his and have recommended discharge home with scheduled follow-up regarding his critical aortic stenosis. Encourage them to return if symptoms change or worsen. Disposition: see below, along with detailed discharge instructions that have been reviewed with patient as well as indications for ED re-evaluation and additional outpatient follow up Discharge Plan Departure Patient Disposition: Home Clinical Impression: Atypical chest pain Instructions: DI for Atypical Chest Pain Activity Restrictions/Additional Instructions: Thank you for coming in today Your workup today was very reassuring. Your heart catheterization 2 days ago did not show significant coronary artery disease. There is no evidence of significant pneumonia, collapsed lung, heart attack or heart attack like syndrome noted today. No significant signs of infection or alternate explanation for this sensation that your having related to your heart Sometimes it does take a bit for our bodies to fully identify symptoms and make it easier to figure out what is causing them. If you do find that your developing new symptoms please feel free to return and I am happy to re-evaluate Please keep all of the rest of your scheduled appointments regarding your aortic stenosis. I hope your repair goes well. Prescriptions: No Action Metamucil 3.4 gram/5.4 gram powder 1 tbsp PO BID Qty: 660 1RF Rx Instructions: mix into at least 8 oz of water or juice before administering lisinopril 40 mg tablet 40 mg PO BID Qty: 180 3RF Eliquis 5 mg tablet 5 mg PO BID Qty: 180 3RF Rx Instructions: Take one tablet by mouth twice daily. betamethasone dipropionate 0.05 % cream 1 applic topical BID PRN (Reason: rash) Qty: 120 3RF clobetasol 0.05 % cream 1 applic topical BID 14 Days Qty: 60 3RF diltiazem HCl 60 mg tablet 60 mg PO .PRN Qty: 60 3RF Rx Instructions: Take one tablet by mouth as needed diltiazem HCl 240 mg capsule,extended release 24hr 240 mg PO QDAY Qty: 90 3RF Rx Instructions: Take one tablet by mouth daily doxazosin 8 mg tablet 8 mg PO HS Qty: 90 3RF Rx Instructions: Take one tablet by mouth in the evening duloxetine 60 mg capsule,delayed release(DR/EC) 60 mg PO DAILY Qty: 90 3RF Rx Instructions: Take one capsule by mouth daily epinephrine [EpiPen 2-Justin] 0.3 mg/0.3 mL auto-injector 0.3 mg IM ONCE Qty: 2 2RF Rx Instructions: Inject as directed for allergic reaction. MRX1 after 5-15 min if needed. Seek medical care. gabapentin [Neurontin] 600 mg tablet 600 mg PO TID Qty: 270 3RF Rx Instructions: Take one tablet by mouth three times daily levothyroxine 100 mcg tablet 100 mcg PO QAM Qty: 90 3RF Rx Instructions: Take one tablet by mouth daily in the morning. triamcinolone acetonide 0.5 % ointment 1 applic TOP BID Qty: 60 3RF rosuvastatin 10 mg tablet 5 mg PO DAILY alprazolam 0.5 mg tablet 0.5 mg PO ONCE Qty: 2 0RF methylprednisolone 4 mg tablets,dose pack 4 mg PO DAILY Qty: 21 0RF diclofenac sodium [Arthritis Pain (diclofenac)] 1 % gel 4 g topical QID Qty: 100 3RF Rx Instructions: apply to single knee, ankle, foot; for foot includes sole/toes/top of foot Referrals: Bud Griffith MD [Primary Care Provider] - Stand Alone Forms: Patient Portal/API
--- NOTE | 2022-03-22 19:54 | DI.RAD.S_ITS ---
PROCEDURE: XR CHEST 1V INDICATIONS: chest pain TECHNIQUE: One view of the chest was acquired. COMPARISON: [facility], CR, XR CHEST 2V, 03/24/2019, 15:56. [facility], CR, XR CHEST 2V, 12/01/2018, 8:49. FINDINGS: Surgical changes and devices: None. Lungs and pleura: Lungs are clear. No pleural effusions or pneumothorax. Mediastinum: Mediastinal contours appear normal. Heart size is normal. Bones and chest wall: No suspicious bony lesions. Overlying soft tissues appear unremarkable. IMPRESSION: Normal for age, source of current chest pain symptoms is not seen. Dictated by: Eddie Almonte M.D. on 03/22/2022 at 20:52 Approved by: Eddie Almonte M.D. on 03/22/2022 at 20:52
[2022-03-22 20:05] LABS: Add Manual Diff / Slide Review NO; Basophils Absolute Auto 100 /uL (0-100); Basophils Percent Auto 0.7 % (0-2); Eosinophils Absolute Auto 500 /uL (0-450); Eosinophils Percent Auto 5.5 % (2-4); Hematocrit 40.3 % (41-53); Hemoglobin 13.4 g/dL (13.5-17.5); Lymphocytes Absolute Auto 1500 /uL (1100-4500); Lymphocytes Percent Auto 16.1 % (25-40); Mean Corpuscular HGB Conc 33.2 % (30-36); Mean Corpuscular Hemoglobin 29.3 PG (26-34); Mean Corpuscular Volume 88.4 fL (80-100); Monocytes Absolute Auto 800 /uL (0-900); Monocytes Percent Auto 8.7 % (3-14); Neutrophils Absolute Auto 6300 /uL (1500-7000); Platelet Count 199 X10^3/uL (150-400); Red Blood Cell Count 4.56 X10^6/uL (4.5-5.9); Red Cell Distribution Width 13.5 % (11.6-14.8); White Blood Cell Count 9.1 X10^3/uL (4.5-11.0)
[2022-03-22] MEDS: ASPIRIN 81 MG CHEW TAB 324 MG PO (20:07)
[2022-03-22] MEDS: NITROGLYCERIN 0.4 MG SL TAB SL ×3 (20:10→20:24)
[2022-03-22 20:13] LABS: Alanine Aminotransferase 30 IU/L (<50); Albumin Globulin Ratio 1.3 (1.0-2.8); Alkaline Phosphatase 124 U/L (38-126); Aspartate Aminotransferase 28 IU/L (17-59); BUN Creatinine Ratio 22.5 (6-22); Bilirubin Total 0.4 mg/dL (0.2-1.3); Blood Urea Nitrogen 27 mg/dL (9-20); Calcium 9.6 mg/dL (8.4-10.2); Carbon Dioxide 28 mmol/L (22-32); Chloride 98 mmol/L (98-107); Creatine Kinase 190 U/L (55-170); Estimated Glomerular Filt Rate > 60 mL/min (>60); Globulin 3.1 g/dL (1.7-4.1); Glucose 108 mg/dL (80-110); HEMOLYSIS 18 (0-50); Lipase 151 U/L (23-300); Potassium 4.2 mmol/L (3.4-5.1); Sodium 133 mmol/L (137-145); Total Protein 7.1 g/dL (6.3-8.2)
--- NOTE | 2022-03-22 20:20 | PC.NURSE ---
had scheduled heart cath 2 days ago. needs aortic valve replacement but has some more test to do prior to that being scheduled at [facility].
[2022-03-22 20:23] LABS: Troponin I 0.026 ng/mL (0.01-0.034)
[2022-03-22 20:28] LABS: CKMB % Relative Index 2.8 % (1.5-5.0); Creatine Kinase MB 5.31 ng/mL (<2.37)
== END 2022-03-22 21:56 | disposition home or self-care (01) ==
PROVIDERS: Emergency Provider Emergency Medicine; PCP Family Medicine
DX: R07.89 Other chest pain (principal); Z79.899 Other long term (current) drug therapy; Z79.01 Long term (current) use of anticoagulants
CPT/HCPCS: 36415; 71045; 80053; 82550; 82553; 83690; 84484; 85025; 93005; 93010; 99284

== ENCOUNTER → 2022-06-07 07:50 | Outpatient (CLI) | payer OTHER, SELFPAY ==
[2022-06-07 08:46] LABS: Add Manual Diff / Slide Review NO; Basophils Absolute Auto 0 /uL (0-100); Basophils Percent Auto 0.5 % (0-2); Eosinophils Absolute Auto 400 /uL (0-450); Eosinophils Percent Auto 4.9 % (2-4); Hematocrit 39.8 % (41-53); Hemoglobin 13.6 g/dL (13.5-17.5); Lymphocytes Absolute Auto 1000 /uL (1100-4500); Mean Corpuscular HGB Conc 34.1 % (30-36); Mean Corpuscular Hemoglobin 30.1 PG (26-34); Mean Corpuscular Volume 88.2 fL (80-100); Monocytes Absolute Auto 900 /uL (0-900); Monocytes Percent Auto 11.7 % (3-14); Neutrophils Absolute Auto 5400 /uL (1500-7000); Neutrophils Percent Auto 69.9 % (50-75); Platelet Count 181 X10^3/uL (150-400); Red Blood Cell Count 4.51 X10^6/uL (4.5-5.9); Red Cell Distribution Width 13.7 % (11.6-14.8); White Blood Cell Count 7.7 X10^3/uL (4.5-11.0)
[2022-06-07 09:18] LABS: Alanine Aminotransferase 27 IU/L (<50); Albumin 4.2 g/dL (3.5-5.0); Albumin Globulin Ratio 1.4 (1.0-2.8); Alkaline Phosphatase 95 U/L (38-126); Aspartate Aminotransferase 35 IU/L (17-59); BUN Creatinine Ratio 20.5 (6-22); Bilirubin Total 0.6 mg/dL (0.2-1.3); Blood Urea Nitrogen 26 mg/dL (9-20); Calcium 9.6 mg/dL (8.4-10.2); Carbon Dioxide 29 mmol/L (22-32); Chloride 100 mmol/L (98-107); Cholesterol 175 mg/dL (140-199); Estimated Glomerular Filt Rate 58 mL/min (>60); Globulin 3.1 g/dL (1.7-4.1); Glucose 100 mg/dL (80-110); HDL Cholesterol 40 mg/dL (40-60); HEMOLYSIS < 15 (0-50); LDL Cholesterol Calculated 115 mg/dL (<100); Potassium 3.8 mmol/L (3.4-5.1); Sodium 135 mmol/L (137-145); Total Protein 7.3 g/dL (6.3-8.2); Triglycerides 102 mg/dL (35-150)
[2022-06-07 09:48] LABS: TSH w/ Reflex to FT4 2.58 uIU/mL (0.47-4.68)
[2022-06-07 09:49] LABS: Prostate Specific Antigen 2.59 ng/mL (0.10-4.00)
== END ==
PROVIDERS: PCP Family Medicine; Referring Provider Family Medicine; Visit Provider Family Medicine
DX: I35.1 Nonrheumatic aortic (valve) insufficiency (principal); E78.5 Hyperlipidemia, unspecified; I10 Essential (primary) hypertension; I48.0 Paroxysmal atrial fibrillation; N40.1 Benign prostatic hyperplasia with lower urinary tract symptoms; R35.1 Nocturia
CPT/HCPCS: 36415; 80053; 80061; 84153; 84443; 85025

== ENCOUNTER 2022-06-07 17:49 | Emergency (ER) | payer OTHER, SELFPAY ==
[2022-06-07] VITALS (27 sets, daily range): BP systolic 140–179; BP diastolic 67–85; PULSE 55–90; RESP 15–43; TEMP 36.7; O2SAT 93–97; BMI 30.2
--- NOTE | 2022-06-07 18:05 | DI.RAD.S_ITS ---
PROCEDURE: XR CHEST 1V INDICATIONS: chest pain TECHNIQUE: One view of the chest was acquired. COMPARISON: [facility], CR, XR CHEST 1V, 03/22/2022, 20:12. FINDINGS: Surgical changes and devices: None. Lungs and pleura: Lungs are clear. No pleural effusions or pneumothorax. Mediastinum: Mediastinal contours appear normal. Heart size is normal. Bones and chest wall: No suspicious bony lesions. Overlying soft tissues appear unremarkable. IMPRESSION: Acute cardiopulmonary findings Approved by: Jeb Rivera M.D. on 06/07/2022 at 18:00
[2022-06-07 18:22] LABS: Add Manual Diff / Slide Review NO; Basophils Absolute Auto 0 /uL (0-100); Basophils Percent Auto 0.6 % (0-2); Eosinophils Absolute Auto 400 /uL (0-450); Eosinophils Percent Auto 4.5 % (2-4); Hematocrit 38.9 % (41-53); Hemoglobin 13.3 g/dL (13.5-17.5); Lymphocytes Absolute Auto 1100 /uL (1100-4500); Lymphocytes Percent Auto 13.9 % (25-40); Mean Corpuscular HGB Conc 34.2 % (30-36); Mean Corpuscular Hemoglobin 29.9 PG (26-34); Mean Corpuscular Volume 87.5 fL (80-100); Monocytes Absolute Auto 700 /uL (0-900); Monocytes Percent Auto 9.3 % (3-14); Neutrophils Absolute Auto 5800 /uL (1500-7000); Neutrophils Percent Auto 71.7 % (50-75); Platelet Count 174 X10^3/uL (150-400); Red Blood Cell Count 4.45 X10^6/uL (4.5-5.9); Red Cell Distribution Width 13.6 % (11.6-14.8)
[2022-06-07 18:34] LABS: Creatine Kinase 410 U/L (55-170)
[2022-06-07 18:35] LABS: Alanine Aminotransferase 29 IU/L (<50); Albumin 4.3 g/dL (3.5-5.0); Albumin Globulin Ratio 1.4 (1.0-2.8); Alkaline Phosphatase 102 U/L (38-126); Aspartate Aminotransferase 35 IU/L (17-59); Bilirubin Total 0.4 mg/dL (0.2-1.3); Blood Urea Nitrogen 26 mg/dL (9-20); Calcium 9.7 mg/dL (8.4-10.2); Carbon Dioxide 28 mmol/L (22-32); Chloride 99 mmol/L (98-107); Estimated Glomerular Filt Rate > 60 mL/min (>60); Glucose 131 mg/dL (80-110); HEMOLYSIS < 15 (0-50); Lipase 82 U/L (23-300); Magnesium 2.2 mg/dL (1.6-2.3); Potassium 3.9 mmol/L (3.4-5.1); Sodium 134 mmol/L (137-145); Total Protein 7.3 g/dL (6.3-8.2)
[2022-06-07 18:45] LABS: Troponin I 0.048 ng/mL (0.01-0.034)
[2022-06-07 18:50] LABS: CKMB % Relative Index 1.5 % (1.5-5.0); Creatine Kinase MB 6.18 ng/mL (<2.37)
--- NOTE | 2022-06-07 18:56 | ED.CHESTPAIN ---
HPI - Chest Pain General Chief Complaint: Chest Pain Stated Complaint: Chest pain, SOB Time Seen by Provider: 06/07/22 18:04 Source: patient and family Mode of arrival: Family Vehicle Limitations: no limitations History of Present Illness HPI narrative: Patient is a 68-year-old male. Is on anticoagulation. 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 Is followed by cardiology as scheduled [facility] and also by [facility] in [facility]. Is scheduled to have a TAVR at the beginning of next month. He is had a fairly extensive workup up to this point to include a cardiac catheterization in March which was relatively unremarkable. He stated that he recently had a CT scan of his chest a couple days ago but does not know the results of this. All these have been in workup for the TAVR. He states that today he was at his normal state of health. He was at dinner with family. He got up to go use the restroom when he had a fairly sudden onset of left-sided chest pressure that radiated to his left arm. He states he got somewhat lightheaded and was diaphoretic with it. Did not have any palpitations. Lasted approximately 20 minutes and has been asymptomatic since that time. He is asymptomatic time of my evaluation. Was not made worse with palpation or movement or breathing. No fevers. No cough. No interventions were done in order to resolve the symptoms Related Data Home Medications Medication Instructions Recorded Confirmed alprazolam 0.5 mg tablet 0.5 mg PO PRN PRN Anxiety 06/08/22 06/08/22 apixaban 5 mg tablet (Eliquis) 5 mg PO BID 06/08/22 06/08/22 chlorthalidone 25 mg tablet 12.5 mg PO DAILY 06/08/22 06/08/22 gabapentin 600 mg tablet 600 mg PO BID 06/08/22 06/08/22 (Neurontin) potassium chloride 10 mEq 10 meq PO DAILY 06/08/22 06/08/22 capsule,extended release Previous Rx's Medication Instructions Recorded diltiazem HCl 60 mg tablet 60 mg PO .PRN #60 tabs 04/04/21 epinephrine 0.3 mg/0.3 mL 0.3 mg (0.3 mL) IM ONCE #2 ea 04/04/21 injection, auto-injector (EpiPen 2-Justin) triamcinolone acetonide 0.5 % 1 applic topical BID #60 grams 04/04/21 topical ointment diltiazem HCl 240 mg 240 mg PO QDAY #90 caps 04/07/22 capsule,extended release 24 hr doxazosin 8 mg tablet 8 mg PO HS #90 tabs 04/07/22 duloxetine 60 mg capsule,delayed 60 mg PO DAILY #90 caps 04/07/22 release levothyroxine 100 mcg tablet 100 mcg PO QAM #90 tabs 04/07/22 lisinopril 40 mg tablet 40 mg PO BID #180 tabs 04/07/22 rosuvastatin 10 mg tablet 5 mg PO DAILY #45 tabs 04/07/22 Allergies Allergy/AdvReac Type Severity Reaction Status Date / Time venom-honey bee Allergy Mild LOCALIZED Verified 06/07/22 18:11 [bee venom (honey bee)] SWELLING atorvastatin [ATORVASTATIN] AdvReac Unknown MOOD Verified 06/07/22 18:11 DISORDER, ANGER Review of Systems Review of Systems ROS Unobtainable: All systems reviewed & are unremarkable except as noted in HPI and below Patient History Medical History Aortic valve regurgitation Benign prostatic hyperplasia with nocturia BPH (benign prostatic hyperplasia) (~1999) Carpal tunnel syndrome Cataract Chicken pox Chronic back pain Colon cancer high risk Excessive daytime sleepiness Foot pain GERD (gastroesophageal reflux disease) (~1999) H/O severe sun exposure Hearing loss Hyperlipidemia (~1993) Hypertension Hypothyroidism (~1999) Infection of pelvis Kidney disease (~2014) Left arm weakness Lumbar degenerative disc disease Lumbar radiculopathy Measles Mental status change resolved Mitral valve insufficiency MRSA (methicillin resistant Staphylococcus aureus) Mumps Nose abnormality Obstructive sleep apnea of adult Osteomyelitis (~2000) Paroxysmal atrial fibrillation Spinal stenosis (~2012) Stage 3 chronic kidney disease (02/26/15) Surgical History History of spinal surgery (~2012) Status post transurethral resection of prostate (~2009) Family History Mother No problems noted. Social History marital status: (to Bucky) details: lives in [place] number of children: 2 household members: spouse lives independently: Yes caregiver/support person: No housing: house lyssa/jewish: Confucianist Smoking Status: Never smoker alcohol intake: current substance use type: does not use Smoking Status: Never smoker Substance Use Type: does not use Exam Initial Vital Signs Initial Vital Signs: Vital Signs Temperature 98.1 F 06/07/22 18:05 Pulse Rate 88 06/07/22 18:05 Respiratory Rate 18 06/07/22 18:05 Blood Pressure 141/80 H 06/07/22 18:05 Pulse Oximetry 97 06/07/22 18:05 Oxygen Delivery Method Room Air 06/07/22 18:05 Const General: cooperative, comfortable and No ill appearing HENMT Head: normal to inspection and normocephalic Face and sinus: normal facial exam Chest Chest: No crepitus and No tenderness Resp Effort & Inspection: normal respiratory effort Auscultation: clear to auscultation bilaterally Cardio Rate: regular rate Rhythm: regular rhythm GI Inspection: normal to inspection Palpation: soft and No tender Skin General: no rashes or lesions noted Neuro General: patient alert, patient awake, patient oriented x3 and moves all extremities Extrem General: No edema Psych Appearance: grossly normal and well kempt Course Orders Ordered: ED Orders 06/07/22 18:03 EKG-12 Lead Stat 06/07/22 18:05 XR chest 1V Stat 06/07/22 18:13 Complete Blood Count AUTO DIFF Stat Comprehensive Metabolic Panel Stat D Dimer Stat Lipase Stat Magnesium Stat Troponin & CK Cardiac Panel Stat 06/07/22 20:10 Troponin & CK Cardiac Panel Stat 06/07/22 22:56 COVID19 -Nasal RAPID Stat 06/07/22 23:15 Troponin & CK Cardiac Panel Stat Discontinued Medications Apixaban (Apixaban 5 Mg Tablet) 5 mg PO NOW ONE Stop: 06/08/22 00:16 Last Admin: 06/08/22 00:20 Dose: 5 mg Documented By: ABDI Aspirin (Aspirin 81 Mg Chew Tab) 324 mg PO NOW ONE Stop: 06/07/22 22:50 Last Admin: 06/07/22 23:26 Dose: 324 mg Documented By: GABBY Vital Signs Vital signs: Vital Signs - 8 hr 06/07/22 18:17 06/07/22 18:19 06/07/22 18:19 Pulse Rate 90 85 Respiratory Rate 18 20 Blood Pressure 152/75 H Pulse Oximetry Oxygen Delivery Method 06/07/22 18:30 06/07/22 18:30 06/07/22 18:45 Pulse Rate 80 78 Respiratory Rate 15 21 Blood Pressure 140/71 Pulse Oximetry 96 96 Oxygen Delivery Method 06/07/22 19:00 06/07/22 19:00 06/07/22 19:15 Pulse Rate 74 80 Respiratory Rate 18 27 H Blood Pressure 152/82 H Pulse Oximetry 95 95 Oxygen Delivery Method 06/07/22 19:30 06/07/22 19:30 06/07/22 19:45 Pulse Rate 70 70 Respiratory Rate 15 20 Blood Pressure 153/77 H Pulse Oximetry 94 96 Oxygen Delivery Method 06/07/22 20:00 06/07/22 20:00 06/07/22 20:15 Pulse Rate 70 66 Respiratory Rate 17 18 Blood Pressure 153/75 H Pulse Oximetry 95 95 Oxygen Delivery Method 06/07/22 20:30 06/07/22 20:30 06/07/22 20:45 Pulse Rate 67 71 Respiratory Rate 17 31 H Blood Pressure 157/72 H Pulse Oximetry 96 96 Oxygen Delivery Method 06/07/22 21:00 06/07/22 21:01 06/07/22 21:01 Pulse Rate 66 65 Respiratory Rate 19 18 Blood Pressure 157/72 H Pulse Oximetry 95 95 Oxygen Delivery Method 06/07/22 21:15 06/07/22 21:30 06/07/22 21:30 Pulse Rate 70 64 Respiratory Rate 22 19 Blood Pressure 142/67 H Pulse Oximetry 96 93 Oxygen Delivery Method Room Air 06/07/22 21:45 06/07/22 22:00 06/07/22 22:01 Pulse Rate 68 67 Respiratory Rate 32 H 18 Blood Pressure 150/68 H Pulse Oximetry 95 95 Oxygen Delivery Method 06/07/22 22:01 06/07/22 22:15 06/07/22 22:30 Pulse Rate 55 L 68 Respiratory Rate 20 43 H Blood Pressure 151/79 H Pulse Oximetry 95 95 Oxygen Delivery Method 06/07/22 22:30 06/07/22 22:45 06/07/22 23:00 Pulse Rate 65 67 Respiratory Rate 20 30 H Blood Pressure 172/83 H Pulse Oximetry 94 94 Oxygen Delivery Method 06/07/22 23:00 06/07/22 23:15 06/07/22 23:30 Pulse Rate 69 63 Respiratory Rate 23 19 Blood Pressure 179/85 H Pulse Oximetry 95 95 Oxygen Delivery Method 06/07/22 23:30 06/07/22 23:45 06/08/22 00:00 Pulse Rate 65 77 61 Respiratory Rate 25 H 27 H 27 H Blood Pressure Pulse Oximetry 96 97 Oxygen Delivery Method 06/08/22 00:01 06/08/22 00:01 06/08/22 00:15 Pulse Rate 62 60 Respiratory Rate 29 H 22 Blood Pressure 149/68 H Pulse Oximetry 97 96 Oxygen Delivery Method 06/08/22 00:30 06/08/22 00:30 06/08/22 00:45 Pulse Rate 60 57 L Respiratory Rate 21 18 Blood Pressure 164/83 H Pulse Oximetry 96 96 Oxygen Delivery Method 06/08/22 01:00 06/08/22 01:00 06/08/22 01:15 Pulse Rate 57 L 58 L Respiratory Rate 15 18 Blood Pressure 165/79 H Pulse Oximetry 94 92 Oxygen Delivery Method 06/08/22 01:30 06/08/22 01:30 06/08/22 01:45 Pulse Rate 58 L 64 Respiratory Rate 18 23 Blood Pressure 157/74 H Pulse Oximetry 92 96 Oxygen Delivery Method MDM - Chest Pain Medical Records Data Attestation: I reviewed the patient's medical records. Lab Data Attestation: I reviewed the patient's lab results. 06/07/22 18:13 06/07/22 18:13 Labs: Lab Results 06/07/22 06/07/22 06/07/22 Range/Units 18:13 18:13 18:13 WBC 8.0 (4.5-11.0) X10^3/uL RBC 4.45 L (4.5-5.9) X10^6/uL Hgb 13.3 L (13.5-17.5) g/dL Hct 38.9 L (41-53) % MCV 87.5 (80-100) fL MCH 29.9 (26-34) PG MCHC 34.2 (30-36) % RDW 13.6 (11.6-14.8) % Plt Count 174 (150-400) X10^3/uL Neut % (Auto) 71.7 (50-75) % Lymph % (Auto) 13.9 L (25-40) % [place] % (Auto) 9.3 (3-14) % Eos % (Auto) 4.5 H (2-4) % Baso % (Auto) 0.6 (0-2) % Neut # (Auto) 5800 (6380-6631) /uL Lymph # (Auto) 1100 (0185-8673) /uL [place] # (Auto) 700 (0-900) /uL Eos # (Auto) 400 (0-450) /uL Baso # (Auto) 0 (0-100) /uL D-Dimer (<500) ng/ml Sodium 134 L (137-145) mmol/L Potassium 3.9 (3.4-5.1) mmol/L Chloride 99 (98-107) mmol/L Carbon Dioxide 28 (22-32) mmol/L BUN 26 H (9-20) mg/dL Creatinine 1.13 (0.66-1.25) mg/dL Estimated GFR > 60 (>60) mL/min BUN/Creatinine Ratio 23.0 H (6-22) Glucose 131 H (80-110) mg/dL Calcium 9.7 (8.4-10.2) mg/dL Magnesium 2.2 (1.6-2.3) mg/dL Total Bilirubin 0.4 (0.2-1.3) mg/dL AST 35 (17-59) IU/L ALT 29 (<50) IU/L Alkaline Phosphatase 102 (38-126) U/L Total Creatine Kinase 410 H (55-170) U/L CK-MB (CK-2) 6.18 H (<2.37) ng/mL CK-MB (CK-2) Rel Index 1.5 (1.5-5.0) % Troponin I 0.048 H (0.01-0.034) ng/mL Total Protein 7.3 (6.3-8.2) g/dL Albumin 4.3 (3.5-5.0) g/dL Globulin 3.0 (1.7-4.1) g/dL Albumin/Globulin Ratio 1.4 (1.0-2.8) Lipase 82 (23-300) U/L SARS-CoV-2 (PCR) (Negative) 06/07/22 06/07/22 06/07/22 Range/Units 18:13 20:10 22:56 WBC (4.5-11.0) X10^3/uL RBC (4.5-5.9) X10^6/uL Hgb (13.5-17.5) g/dL Hct (41-53) % MCV (80-100) fL MCH (26-34) PG MCHC (30-36) % RDW (11.6-14.8) % Plt Count (150-400) X10^3/uL Neut % (Auto) (50-75) % Lymph % (Auto) (25-40) % [place] % (Auto) (3-14) % Eos % (Auto) (2-4) % Baso % (Auto) (0-2) % Neut # (Auto) (1031-5336) /uL Lymph # (Auto) (6261-4630) /uL [place] # (Auto) (0-900) /uL Eos # (Auto) (0-450) /uL Baso # (Auto) (0-100) /uL D-Dimer 382 (<500) ng/ml Sodium (137-145) mmol/L Potassium (3.4-5.1) mmol/L Chloride (98-107) mmol/L Carbon Dioxide (22-32) mmol/L BUN (9-20) mg/dL Creatinine (0.66-1.25) mg/dL Estimated GFR (>60) mL/min BUN/Creatinine Ratio (6-22) Glucose (80-110) mg/dL Calcium (8.4-10.2) mg/dL Magnesium (1.6-2.3) mg/dL Total Bilirubin (0.2-1.3) mg/dL AST (17-59) IU/L ALT (<50) IU/L Alkaline Phosphatase (38-126) U/L Total Creatine Kinase 359 H (55-170) U/L CK-MB (CK-2) 5.58 H (<2.37) ng/mL CK-MB (CK-2) Rel Index 1.6 (1.5-5.0) % Troponin I 0.051 H (0.01-0.034) ng/mL Total Protein (6.3-8.2) g/dL Albumin (3.5-5.0) g/dL Globulin (1.7-4.1) g/dL Albumin/Globulin Ratio (1.0-2.8) Lipase (23-300) U/L SARS-CoV-2 (PCR) Negative (Negative) 06/08/22 Range/Units 00:05 WBC (4.5-11.0) X10^3/uL RBC (4.5-5.9) X10^6/uL Hgb (13.5-17.5) g/dL Hct (41-53) % MCV (80-100) fL MCH (26-34) PG MCHC (30-36) % RDW (11.6-14.8) % Plt Count (150-400) X10^3/uL Neut % (Auto) (50-75) % Lymph % (Auto) (25-40) % [place] % (Auto) (3-14) % Eos % (Auto) (2-4) % Baso % (Auto) (0-2) % Neut # (Auto) (3149-4634) /uL Lymph # (Auto) (1968-4203) /uL [place] # (Auto) (0-900) /uL Eos # (Auto) (0-450) /uL Baso # (Auto) (0-100) /uL D-Dimer (<500) ng/ml Sodium (137-145) mmol/L Potassium (3.4-5.1) mmol/L Chloride (98-107) mmol/L Carbon Dioxide (22-32) mmol/L BUN (9-20) mg/dL Creatinine (0.66-1.25) mg/dL Estimated GFR (>60) mL/min BUN/Creatinine Ratio (6-22) Glucose (80-110) mg/dL Calcium (8.4-10.2) mg/dL Magnesium (1.6-2.3) mg/dL Total Bilirubin (0.2-1.3) mg/dL AST (17-59) IU/L ALT (<50) IU/L Alkaline Phosphatase (38-126) U/L Total Creatine Kinase 333 H (55-170) U/L CK-MB (CK-2) 5.32 H (<2.37) ng/mL CK-MB (CK-2) Rel Index 1.6 (1.5-5.0) % Troponin I 0.062 H (0.01-0.034) ng/mL Total Protein (6.3-8.2) g/dL Albumin (3.5-5.0) g/dL Globulin (1.7-4.1) g/dL Albumin/Globulin Ratio (1.0-2.8) Lipase (23-300) U/L SARS-CoV-2 (PCR) (Negative) Imaging Data Chest x-ray: Radiologist's Impression: ADDENDUMThis report includes an Addendum and supersedes previous reports for this exam. ? ? ? PROCEDURE:? XR CHEST 1V ? INDICATIONS:? chest pain ? TECHNIQUE:? One view of the chest was acquired.? ? COMPARISON:? [facility], CR, XR CHEST 1V, 03/22/2022, 20:12. ? FINDINGS:? ? Surgical changes and devices:? None.? ? Lungs and pleura:? Lungs are clear.? No pleural effusions or pneumothorax.? ? Mediastinum:? Mediastinal contours appear normal.? Heart size is normal.? ? Bones and chest wall:? No suspicious bony lesions.? Overlying soft tissues appear unremarkable.? ? IMPRESSION:? No acute cardiopulmonary findings ? ? ? Approved by: Jeb Rivera M.D. on 06/07/2022 at 18:00? ? ? ADDENDUM: ? IMPRESSION: ? 1. No acute cardiopulmonary findings ? Dictated by: Jeb Rivera M.D. on 06/07/2022 at 18:06 ? ? Approved by: Jeb Rivera M.D. on 06/07/2022 at 18:07? ECG Data Attestation: I personally reviewed and interpreted this ECG as follows: Interpretation: Sinus rhythm Ventricular rate 84 Normal axis Normal QRS Normal QTC Nonspecific ST T wave changes MDM Narrative Medical decision making narrative: Patient has been asymptomatic since arrival here in the emergency department. He has a EKG with nonspecific ST T wave changes. His troponin is greater than the 99th percentile however does not meet the cut off for an acute myocardial infarction. A 2 hour repeat shows relatively unchanged troponin. He is not clinically in heart failure. Is not hypoxic. His chest x-ray is unremarkable. Had a cardiac catheterization that according to the report that I was able to see was relatively unremarkable and did not need any stenting. This was done just a couple months ago. I am unable to see any current echocardiogram. The last 1 that I have for him was from 2019. I did discuss the case with Dr. Graham who is on-call for cardiology who was also the patient's apartment assistant manager who recommended that I talk with the interventional cardiology group at [facility] to discuss his elevated troponins in his presentation today. I then discussed the case with Dr. Galarza who was on-call for Interventional Cardiology who is also the individual seeing this patient. He was unable to see any of the patient's recent workup. Stated that if we felt that the patient needed transfer that he would be happy to see the patient. I then discussed the case with Dr. Cardona hospitalist on-call for [facility] who accepts the patient for transfer. Patient is currently stable for transport. I did discuss the need for transfer with the patient and his who is at bedside. They expressed understanding and agreement. Discharge Plan Departure Patient Disposition: [facility] Clinical Impression: Aortic stenosis, Chest pain Prescriptions: No Action diltiazem HCl 60 mg tablet 60 mg PO .PRN Qty: 60 3RF Rx Instructions: Take one tablet by mouth as needed epinephrine [EpiPen 2-Justin] 0.3 mg/0.3 mL auto-injector 0.3 mg IM ONCE Qty: 2 2RF Rx Instructions: Inject as directed for allergic reaction. MRX1 after 5-15 min if needed. Seek medical care. triamcinolone acetonide 0.5 % ointment 1 applic TOP BID Qty: 60 3RF diltiazem HCl 240 mg capsule,extended release 24hr 240 mg PO QDAY Qty: 90 3RF Rx Instructions: Take one tablet by mouth daily doxazosin 8 mg tablet 8 mg PO HS Qty: 90 3RF Rx Instructions: Take one tablet by mouth in the evening duloxetine 60 mg capsule,delayed release(DR/EC) 60 mg PO DAILY Qty: 90 3RF Rx Instructions: Take one capsule by mouth daily levothyroxine 100 mcg tablet 100 mcg PO QAM Qty: 90 3RF Rx Instructions: Take one tablet by mouth daily in the morning. lisinopril 40 mg tablet 40 mg PO BID Qty: 180 3RF rosuvastatin 10 mg tablet 5 mg PO DAILY Qty: 45 3RF alprazolam 0.5 mg tablet 0.5 mg PO PRN PRN (Reason: Anxiety) Eliquis 5 mg tablet 5 mg PO BID Patient Comments: Rx Instructions: Take one tablet by mouth twice daily. gabapentin [Neurontin] 600 mg tablet 600 mg PO BID Rx Instructions: Take one tablet by mouth three times daily potassium chloride 10 mEq Capsule, Extended Release 10 meq PO DAILY chlorthalidone 25 mg Tablet 12.5 mg PO DAILY Referrals: Bud Griffith MD [Primary Care Provider] -
[2022-06-07 19:11] LABS: D Dimer 382 ng/ml (<500)
[2022-06-07 20:30] LABS: Creatine Kinase 359 U/L (55-170)
[2022-06-07 20:43] LABS: Troponin I 0.051 ng/mL (0.01-0.034)
[2022-06-07 20:45] LABS: CKMB % Relative Index 1.6 % (1.5-5.0); Creatine Kinase MB 5.58 ng/mL (<2.37)
[2022-06-07 23:20] LABS: COVID19 -Nasal RAPID Negative (Negative)
[2022-06-07] MEDS: ASPIRIN 81 MG CHEW TAB 324 MG PO (23:26)
[2022-06-08] VITALS (12 sets, daily range): BP systolic 149–165; BP diastolic 68–85; PULSE 57–69; RESP 15–29; O2SAT 92–97
[2022-06-08] MEDS: APIXABAN 5 MG TABLET PO (00:20)
[2022-06-08 00:27] LABS: Creatine Kinase 333 U/L (55-170)
[2022-06-08 00:40] LABS: Troponin I 0.062 ng/mL (0.01-0.034)
[2022-06-08 00:42] LABS: CKMB % Relative Index 1.6 % (1.5-5.0); Creatine Kinase MB 5.32 ng/mL (<2.37)
--- NOTE | 2022-06-08 00:44 | PC.NURSE ---
AUTOMOTIVE REPAIR TECHNICIAN note: Bucky Chu
--- NOTE | 2022-06-08 02:06 | PC.NURSE ---
Report called to BITA Lynn at [facility]. Plan to call with ETA once transport arrives to pick patient up.
== END 2022-06-08 02:30 | disposition short-term general hospital (02) ==
PROVIDERS: Emergency Provider Emergency Medicine; PCP Family Medicine
DX: I35.0 Nonrheumatic aortic (valve) stenosis (principal); Z79.01 Long term (current) use of anticoagulants; R07.9 Chest pain, unspecified; Z20.822 Contact with and (suspected) exposure to COVID-19; I48.0 Paroxysmal atrial fibrillation; I10 Essential (primary) hypertension; I35.1 Nonrheumatic aortic (valve) insufficiency; N40.1 Benign prostatic hyperplasia with lower urinary tract symptoms; R35.1 Nocturia; E78.5 Hyperlipidemia, unspecified
CPT/HCPCS: 36415; 71045; 80053; 80061; 82550; 82553; 83690; 83735; 84153; 84443; 84484; 85025; 85379; 87635; 93005; 93010; 99284; C9803

== ENCOUNTER → 2022-09-10 08:28 | Outpatient (CLI) | payer OTHER, SELFPAY ==
--- NOTE | 2022-09-10 08:30 | DI.RAD.S_ITS ---
PROCEDURE: XR FOOT RT MIN 3V INDICATIONS: foot pain TECHNIQUE: 3 views of the foot were acquired. COMPARISON: None. FINDINGS: Bones: No fractures or dislocations. No suspicious bony lesions. Soft tissues: No tibiotalar joint effusion. Achilles tendon appears normal. IMPRESSION: No visualized acute fracture or dislocation. However, if clinical concern and/or pain persist, short interval imaging followup in 7-10 days is recommended, as occult injury cannot be definitively excluded. Dictated by: Dasia Parker M.D. on 09/10/2022 at 17:48 Approved by: Dasia Parker M.D. on 09/10/2022 at 17:48
--- NOTE | 2022-09-10 08:30 | DI.RAD.S_ITS ---
PROCEDURE: XR FOOT LT MIN 3V INDICATIONS: foot pain TECHNIQUE: 3 views of the foot were acquired. COMPARISON: None. FINDINGS: Bones: No fractures or dislocations. No suspicious bony lesions. Soft tissues: No tibiotalar joint effusion. Achilles tendon appears normal. IMPRESSION: No visualized acute fracture or dislocation. However, if clinical concern and/or pain persist, short interval imaging followup in 7-10 days is recommended, as occult injury cannot be definitively excluded. Dictated by: Dasia Parker M.D. on 09/10/2022 at 17:48 Approved by: Dasia Parker M.D. on 09/10/2022 at 17:48
--- OUTSIDE RECORDS SUMMARY | 2023-01-16 15:10 | XMS_ITS | Referral Summary ---
Author Name Unknown Organization [facility] Address [address] [place] [address] Care Team Providers Care Land[employer] Collection Operator Name Role Phone Bud Griffith Primary Care Provider [phone] Reason for Referral * Rehabilitation - Outpatient - Authorized Specialty Diagnoses / Procedures Referred By Audelia morgan Referred To Contact Diagnoses Aortic valve disorder Obie Spivey MD [address] [place] [address] [address] Referral ID Status Reason Start Date Expiration Date V isits Requested Visits Authorized [id number] Authorized 06/11/2022 06/06/2023 1 1 Encounter Details Date Type Department Care Team Description 06/11/[address] [facility] Cardiology [address], [place] [address] Obie Spivey MD [address] [place] [address] [address] [place] [address] Aortic valve disorder (Primary Dx) Allergies Active Allergy Reactions Severity Noted Date Comments Venom-Honey Bee 06/22/2014 documented as of this encounter (statuses as of 07/04/2022) Medications Medication Sig Dispensed Refills Start Date End Date Status levothyroxine (SYNTHROID, LEVOTHROID) 100 mcg tablet Take 1 tablet (100 mcg total) by mouth every morning before breakfast 0 Active gabapentin (NEURONTIN) 600 mg tablet Take 1 tablet (600 mg total) by mouth 2 (two) times a day 0 Active EPINEPHrine (EPIPEN) 0.3 mg/0.3 mL injection syringe Inject 0.3 mL (0.3 mg total) into the thigh daily as needed for anaphylaxis 0 Active doxazosin (CARDURA) 8 mg tablet Take 1 tablet (8 mg total) by mouth nightly 0 Active DULoxetine (CYMBALTA) 60 mg capsule Take 1 capsule (60 mg total) by mouth daily 5 07/07/2017 Active ascorbic acid, vitamin C, (VITAMIN C) 500 mg tablet Take 2 tablets (1,000 mg total) by mouth daily 0 Active apixaban (ELIQUIS) 5 mg tablet Take 1 tablet (5 mg total) by mouth 2 (two) times a day 0 04/04/2019 Active rosuvastatin (CRESTOR) 5 mg tablet Take 1 tablet (5 mg total) by mouth daily AM 0 Active lisinopriL (PRINIVIL) 40 mg tablet Take 1 tablet (40 mg total) by mouth daily Takes in the mornings 0 Active diltiazem (CARDIZEM) 60 mg tablet 60 mg po q6 hr as needed for breakthrough afib. 120 tablet 11 10/20/2017 3 Discontinued( Stop Taking at Discharge) diltiazem XR (DILACOR XR) 240 mg 24 hr capsule Take 1 capsule (240 mg total) by mouth daily 90 capsule 3 06/01/2020 3 Discontinued( Stop Taking at Discharge) chlorthalidone (HYGROTON) 25 mg tablet Take 0.5 tablets (12.5 mg total) by mouth daily 45 tablet 3 04/09/2022 3 Discontinued( Discontinued by another clinician) potassium chloride (KLOR-CON) 10 mEq CR tablet Take 1 tablet (10 mEq total) by mouth daily 90 tablet 3 04/09/2022 3 Discontinued( Discontinued by another clinician) chlorthalidone (HYGROTON) 25 mg tablet Take 0.5 tablets (12.5 mg total) by mouth daily 15 tablet 0 04/09/2022 3 Discontinued( No Longer Needed, Treatment Complete) potassium chloride (KLOR-CON) 10 mEq CR tablet Take 1 tablet (10 mEq total) by mouth daily 90 tablet 0 04/09/2022 3 Discontinued( No Longer Needed, Treatment Complete) documented as of this encounter (statuses as of 07/04/2022) Active Problems Problem Noted Date SUKI (obstructive sleep apnea) 06/06/2022 Last Assessment & Plan: Richard came in today with his for a routine compliance check of his BiPAP use, and a follow-up on his SUKI. He reports that he uses his machine every night and that he gets some benefit from its use. He reports today some issues with the mask interface. First, it is giving him some irritation on the bridge of his nose. Also, there has been leaks from the mask. On reviewing his download data for leaks, overall it is slightly elevated. However on looking at the graph of the leak, there are clusters of high leaks, but there are dates in between where there is no concerning leak. I discussed with him and his that this could partly be due to to an overall poorly fitting mask. I [facility] I indicated this on my prescription today. I also made a suggestion for perhaps a hybrid fullface mask which would avoid the bridge of the nose. I told them that fit pack may be available. I also discussed about regular replacement and cleaning especially of the cushion in order to avoid degradation of the material, or just generally sliding off the face with accumulation of skin and oil. I discussed the remainder of the download today. It shows excellent compliance. His current P95 is midway in his range of pressure setting. Given that he has some creep up of symptoms, I recommended an increase in the base pressure. However I did not increase this all the way to the P95 because of the leak. Therefore I adjusted the machine to a new setting of 16/12 cm H2O to a maximum of 22/18 cm H2O. I would like for him to be seen again in about 4 to 6 weeks to follow-up on his symptoms and this pressure change. I explained to him that in his case, there could be multiple medical conditions contributing to fatigue and not rested sleep. However we will do our part in sleep medicine to optimize his PAP therapy. We will have a low threshold for sending him for a titration study if he is still having issues, as noted above, when he comes back for follow-up. Exertional shortness of breath 9 Coronary artery calcification 03/26/2018 S/P ablation of atrial fibrillation 06/2018 Pericarditis 01/28/2018 Atrial fibrillation 01/27/2018 Essential hypertension 10/15/2017 Dyslipidemia 10/15/2017 Nonrheumatic aortic (valve) stenosis Renal insufficiency 10/15/2017 Elevated CPK 10/15/2017 Paroxysmal atrial fibrillation 8 Arrhythmia 02/02/2017 Overview: PAF , on flecainide therapy since 06/2006 documented as of this encounter (statuses as of 07/04/2022) Resolved Problems Problem Noted Date Resolved Date Encounter for monitoring flecainide therapy 02/1609/23/2021 documented as of this encounter (statuses as of 07/04/2022) Social History Tobacco Use Types Packs/Day Years Used Date Smoking Tobacco: Never Smokeless Tobacco: Never Alcohol Use Standard Drinks/Week Comments No 0 (1 standard drink = 0.6 oz pur e alcohol) Financial Resource Strain Answer Date R ecorded How hard is it for you to pa y for the very basics like food, housing, medical care, and heating? Not hard at all 06/14/2022 Food Insecurity Answer Date Recorded Within the past 12 months, y ou worried that your food would run out before you got money to buy more. Never true 06/14/2022 Within the past 12 months, t he food you bought just didn't last and you didn't have money to get more. Never true 06/14/2022 Transportation Needs Answer Date Record ed In the past 12 months, has l ack of transportation kept you from medical appointments or from getting medications? No 05/18 In the past 12 months, has l ack of transportation kept you from meetings, work, or getting things needed for daily living? No 06/14/2022 Housing Stability Answer Date Recorded In the last 12 months, was t here a time when you were not able to pay the mortgage or rent on time? No 06/14/2022 In the last 12 months, how many places have you lived? 0 06/14/2022 In the last 12 months, was t here a time when you did not have a steady place to sleep or slept in a prison (including now)? No 06/14/2022 Sex Assigned at Date Recorded Male 06/16/2022 7:21 AM P DT Job Start Date Occupation Industry Not on file Not on file Not on file documented as of this encounter Plan of Treatment Upcoming Encounters Date Type Specialty Care Team Description 07/11/2022 Appointment Radiology Obie Spivey MD [address] [place] [address] [address] [place], [place] [id number] 07/22/2022 Office Visit Cardiology Tania Joel MD [address] [place] [address] Scheduled Referrals Name Type Priority Associated Diagnoses Order Schedule Ambulatory Referral to Cardiac Rehabilitation Outpatient Referral Routine Aortic valve disorder Ordered: 06/11/2022 documented as of this encounter Visit Diagnoses Diagnosis Aortic valve disorder- Primary Aortic valve disorders documented in this encounter Insurance Payer Benefit Plan / Group Subscriber ID Effective Dates Phone Address Type [facility] [id number] 2019-Prese nt [address] [place] [address] MEDICARE MEDICARE PART A AND B [id number] 2011-Pres ent [address] [place] [address] STANDARD LIFE SUPP STANDARD LIFE SUPP [id number] 2015-Prese nt [address] [address] [place] [address] documented as of this encounter Advance Directives Latest Code Status on File Code Status Date Activated Date Inactivated Comments Full Code 06/13/2022 9:00 PM 06/16/2022 11:26 AM Code Status History Code Status Date Activated Date Inactivated Comments Full Code 06/13/2022 8:20 PM 06/13/2022 9:00 PM Full Code 03/20/2022 11:55 AM 03/21/2022 2:34 AM Full Code 01/28/2018 5:05 PM 01/29/2018 3:42 PM Full Code 01/27/2018 12:50 PM 01/28/2018 1:37 PM Care Teams Land[employer] Operator Relationship Specialty Start Date End Date Bud Griffith [address] [place] [id number] PCP - General Family Medicine 12/22/17 documented as of this encounter
== END ==
PROVIDERS: PCP Family Medicine; Referring Provider Family Medicine; Visit Provider Family Medicine
DX: M79.671 Pain in right foot (principal); M79.672 Pain in left foot
CPT/HCPCS: 73630

== ENCOUNTER → 2023-01-19 07:08 | Outpatient (CLI) | payer OTHER, SELFPAY ==
[2023-01-19 08:44] LABS: Alanine Aminotransferase 31 IU/L (<50); Albumin Globulin Ratio 1.4 (1.0-2.8); Alkaline Phosphatase 102 U/L (38-126); Aspartate Aminotransferase 37 IU/L (17-59); BUN Creatinine Ratio 23.6 (6-22); Bilirubin Total 0.6 mg/dL (0.2-1.3); Blood Urea Nitrogen 29 mg/dL (9-20); Calcium 10.3 mg/dL (8.4-10.2); Carbon Dioxide 25 mmol/L (22-32); Chloride 105 mmol/L (98-107); Cholesterol 176 mg/dL (140-199); Estimated Glomerular Filt Rate 60 mL/min (>60); Globulin 2.8 g/dL (1.7-4.1); Glucose 99 mg/dL (80-110); HDL Cholesterol 43 mg/dL (40-60); HEMOLYSIS < 15 (0-50); LDL Cholesterol Calculated 121 mg/dL (<100); Potassium 4.5 mmol/L (3.4-5.1); Sodium 136 mmol/L (137-145); Total Protein 6.8 g/dL (6.3-8.2); Triglycerides 59 mg/dL (35-150)
== END ==
PROVIDERS: PCP Family Medicine; Referring Provider Internal Medicine Cardiovascular Disease; Visit Provider Internal Medicine Cardiovascular Disease
DX: E78.5 Hyperlipidemia, unspecified (principal); I10 Essential (primary) hypertension
CPT/HCPCS: 36415; 80053; 80061

== ENCOUNTER 2023-04-01 12:34 | Day surgery (SDC) | payer OTHER, SELFPAY ==
[2023-03-30 17:04] VITALS: BMI 31.1
[2023-04-01] VITALS (13 sets, daily range): BP systolic 112–159; BP diastolic 75–91; PULSE 60–80; RESP 12–18; TEMP 36.1–36.8; O2SAT 96–99; BMI 31.1
--- NOTE | 2023-04-01 11:59 | P.PN_ITS ---
Subjective Subjective Interval history: Cardiac clearance: 77yo male with past medical history significant for aortic stenosis s/p TAVR and paroxysmal Afib s/p ablation. Patient had a syncopal episode not long after TAVR. He was found to be in Afib with a ventricular rate of 25beats/min. Cardiology at [facility] recommended a pacemaker for possible tachybrady syndrome. Patient was transferred to [facility] for evaluation. EP put him on Holter monitor for 14days. EP did not feel he needed a pacemaker at the time. He is scheduled to have umbilical hernia repair today (04/01/23). Efforts were made to get cardiac clearance for general anesthesia and surgery. Spoke with Nessa Almazan ([employer]) who performed the TAVR. Stated that patient is safe to undergo umbilical hernia repair under general anesthesia as long as EKG shows controlled heart rate and narrow QRS. Plan is to perform EKG and basic labs in Preop, general anesthesia with ET tube. [facility] Medical History H/O severe sun exposure Nose abnormality Mental status change resolved Left arm weakness Colon cancer high risk Excessive daytime sleepiness Obstructive sleep apnea of adult Lumbar radiculopathy Lumbar degenerative disc disease Spinal stenosis (~2012) Foot pain Chronic back pain Carpal tunnel syndrome Infection of pelvis Osteomyelitis (~2000) Mumps MRSA (methicillin resistant Staphylococcus aureus) Measles Chicken pox Hearing loss Cataract GERD (gastroesophageal reflux disease) (~1999) Hypothyroidism (~1999) Hyperlipidemia (~1993) Kidney disease (~2014) BPH (benign prostatic hyperplasia) (~1999) Stage 3 chronic kidney disease (02/26/15) Hypertension Mitral valve insufficiency Aortic valve regurgitation Benign prostatic hyperplasia with nocturia Paroxysmal atrial fibrillation Surgical History History of spinal surgery (~2012) Status post transurethral resection of prostate (~2009) Family History Mother No problems noted. Social History (Updated 01/29/23 @ 09:47 by Le Leong MA) marital status: (to Bucky) details: lives in [place] number of children: 2 household members: spouse lives independently: Yes caregiver/support person: No housing: house occupational status: previously employed [employer]: Religion Smoking Status: Never smoker alcohol intake: current substance use type: does not use
[2023-04-01 13:26] LABS: Add Manual Diff / Slide Review NO; Basophils Absolute Auto 0 /uL (0-100); Basophils Percent Auto 0.7 % (0-2); Eosinophils Absolute Auto 400 /uL (0-450); Hematocrit 38.9 % (41-53); Lymphocytes Absolute Auto 1100 /uL (1100-4500); Lymphocytes Percent Auto 15.7 % (25-40); Mean Corpuscular HGB Conc 33.6 % (30-36); Mean Corpuscular Hemoglobin 29.8 PG (26-34); Mean Corpuscular Volume 88.8 fL (80-100); Monocytes Absolute Auto 600 /uL (0-900); Monocytes Percent Auto 8.1 % (3-14); Neutrophils Absolute Auto 5000 /uL (1500-7000); Neutrophils Percent Auto 70.5 % (50-75); Platelet Count 146 X10^3/uL (150-400); Red Blood Cell Count 4.38 X10^6/uL (4.5-5.9); Red Cell Distribution Width 12.7 % (11.6-14.8); White Blood Cell Count 7.1 X10^3/uL (4.5-11.0)
[2023-04-01] MEDS: LACTATED RINGERS 1,000 ML 21 ML IV (13:28)
[2023-04-01 13:44] LABS: INR 1.1 (0.9-1.3); Prothrombin Time 12.3 SECONDS (9.4-12.5)
[2023-04-01 13:46] LABS: PTT Partial Thromboplastin Tim 36 SECONDS (25.1-36.5)
[2023-04-01 13:50] LABS: BUN Creatinine Ratio 23.7 (6-22); Blood Urea Nitrogen 28 mg/dL (9-20); Carbon Dioxide 25 mmol/L (22-32); Chloride 104 mmol/L (98-107); Creatine Kinase 339 U/L (55-170); Estimated Glomerular Filt Rate > 60 mL/min (>60); Glucose 87 mg/dL (80-110); HEMOLYSIS < 15 (0-50); Sodium 137 mmol/L (137-145)
--- NOTE | 2023-04-01 13:50 | PM.HP.1 ---
History of Present Illness History of Present Illness Date Patient Seen: 04/01/23 Time Patient Seen: 13:50 Chief complaint: Open Umbilical Hernia Repair Narrative: 77M PMH aortic stenosis sp TAVR afib on anticoagulation here for open elective umbilical hernia repair. No interval change in health. [facility] Medical History H/O severe sun exposure Nose abnormality Mental status change resolved Left arm weakness Colon cancer high risk Excessive daytime sleepiness Obstructive sleep apnea of adult Lumbar radiculopathy Lumbar degenerative disc disease Spinal stenosis (~2012) Foot pain Chronic back pain Carpal tunnel syndrome Infection of pelvis Osteomyelitis (~2000) Mumps MRSA (methicillin resistant Staphylococcus aureus) Measles Chicken pox Hearing loss Cataract GERD (gastroesophageal reflux disease) (~1999) Hypothyroidism (~1999) Hyperlipidemia (~1993) Kidney disease (~2014) BPH (benign prostatic hyperplasia) (~1999) Stage 3 chronic kidney disease (02/26/15) Hypertension Mitral valve insufficiency Aortic valve regurgitation Benign prostatic hyperplasia with nocturia Paroxysmal atrial fibrillation Surgical History History of spinal surgery (~2012) Status post transurethral resection of prostate (~2009) Family History Mother No problems noted. Social History (Updated 01/29/23 @ 09:47 by Le Leong MA) marital status: (to Bucky) details: lives in [place] number of children: 2 household members: spouse lives independently: Yes caregiver/support person: No housing: house occupational status: previously employed [employer]: [employer] Smoking Status: Never smoker alcohol intake: never substance use type: does not use Meds Home Medications and Allergies Home Medications Medication Instructions Recorded Confirmed Type triamcinolone acetonide 0.5 % 1 applic topical BID #60 grams 04/04/21 04/01/23 Rx topical ointment doxazosin 8 mg tablet 8 mg PO HS #90 tabs 04/07/22 04/01/23 Rx duloxetine 60 mg capsule,delayed 60 mg PO DAILY #90 caps 04/07/22 04/01/23 Rx release levothyroxine 100 mcg tablet 100 mcg PO QAM #90 tabs 04/07/22 04/01/23 Rx apixaban 5 mg tablet (Eliquis) 5 mg PO BID 06/08/22 04/01/23 History aspirin 81 mg chewable tablet 81 mg PO DAILY 06/12/22 04/01/23 History lisinopril 40 mg tablet 40 mg PO DAILY #90 tabs 06/12/22 04/01/23 Rx rosuvastatin 5 mg tablet 5 mg PO DAILY #90 tabs 06/12/22 04/01/23 Rx spironolactone 25 mg tablet 25 mg PO DAILY 06/12/22 04/01/23 History amlodipine 5 mg tablet 5 mg PO BID 01/29/23 04/01/23 History gabapentin 600 mg tablet 600 mg PO TID 01/29/23 04/01/23 History (Neurontin) Allergies Allergy/AdvReac Type Severity Reaction Status Date / Time venom-honey bee Allergy Mild LOCALIZED Verified 04/01/23 12:57 [bee venom (honey bee)] SWELLING atorvastatin [ATORVASTATIN] AdvReac Unknown MOOD Verified 04/01/23 12:57 DISORDER, ANGER Exam Vital Signs (past 8 hours): - 04/01/23 13:21 Temperature 96.9 F L Pulse Rate 65 Respiratory Rate 12 Blood Pressure 150/79 H Pulse Oximetry 99 Oxygen Delivery Method Room Air Oxygen Delivery Method Room Air Narrative Exam Narrative: Gen-Adult man alert and oriented Abdomen Soft reducible umbilical hernia Objective Labs 04/01/23 13:00 04/01/23 13:00 Labs: Laboratory Results - last 24 hr 04/01/23 04/01/23 13:00 13:20 WBC 7.1 RBC 4.38 L Hgb 13.0 L Hct 38.9 L MCV 88.8 MCH 29.8 MCHC 33.6 RDW 12.7 Plt Count 146 L Neut % (Auto) 70.5 Lymph % (Auto) 15.7 L [place] % (Auto) 8.1 Eos % (Auto) 5.0 H Baso % (Auto) 0.7 Neut # (Auto) 5000 Lymph # (Auto) 1100 [place] # (Auto) 600 Eos # (Auto) 400 Baso # (Auto) 0 PT 12.3 INR 1.1 APTT 36 Assessment & Plan Assessment and plan (1) Umbilical hernia: Qualifiers: Obstruction and gangrene presence: without obstruction or gangrene Qualified Code(s): K42.9 - Umbilical hernia without obstruction or gangrene Status: Acute Assessment & Plan narrative: 77M here for elective open umbilical hernia repair.Overview of the operation discussed. Operative risks including hemorrhage, infection, reoccurence, dmage to surrounding structure reviewed. He provides his written and verbal consent to proceed.
[2023-04-01 14:00] LABS: Troponin I < 0.012 ng/mL (0.01-0.034)
[2023-04-01] MEDS: CEFAZOLIN 2 GM/100 ML PREMIX 100 ML IV (14:25)
--- NOTE | 2023-04-01 14:29 | SUR.OPER ---
Supine on padded OR bed, head on pillow, arms secured on padded arm boards at <90 degrees abduction, legs uncrossed, safety belt at thigh, tape over blanket over lower legs.
[2023-04-01] MEDS: BUPIVACAINE 0.25% (PF) VIAL 30 ML INJ (14:33)
--- NOTE | 2023-04-01 17:06 | SUR.PHASEII ---
Patient had been on a continuous pulse ox in phase II. No desats noted.
--- NOTE | 2023-04-03 08:53 | PM.OP.1 ---
Operative Date/Time/Diagnoses Date of procedure: 04/03/23 Time of procedure: 08:53 Pre-op diagnosis: Umbilical hernia Post-op diagnosis: same Procedure & Clinicians Procedure: Open umbilical hernia repair with mesh Same procedure as scheduled: Yes Indications: Symptomatic reducible umbilical hernia Surgeon: Jackson Bautista Click Yes if Unassisted: No Anesthesia Type: General Operative Notes Findings: 3 cm fascial defect containing omentum Specimen(s): none sent Estimated Blood Loss (mL): 10 Procedure in detail: Patient was brought to the operating room placed supine on the table. Bilateral lower extremity compression devices were applied. General anesthesia was induced and they were intubated with an endotracheal tube. They received 2 g of Ancef prior to skin incision. They were prepped and draped in sterile fashion. A time-out was performed. A curvilinear incision was made inferior to the umbilicus. The subcutaneous tissues were divided. The umbilical hernia was identified and the hernia sac was dissected off the umbilical skin and circumferentially off of the fascia defect. The hernia sac was sharply opened and contained viable omentum. The omentum was reduced back into the abdomen. Using blunt dissection I carefully carefully freed the hernia sac from beneath the fascia defect in order to accomodate the mesh. The fascia defect was 3 cm in maximal diameter. A Bard Ventralex ST hernia patch 8 cm was inserted beneath the fascia defect and above the peritoneum in a sublay position. The mesh was anchored in multiple locations using Ethibond suture to the fascia and the fascial defect was closed over the mesh. The umbilical skin was tacked to the subcutaneous tissues and then the remainder of the subcutaneous tissues were reapproximated using 3 0 Vicry,l skin closed with 4 0 Monocryl followed by the application of Dermabond . Sponge instrument count at the end of the operation was correct. Patient tolerated procedure well was extubated and transferred to postoperative care unit in stable condition. Complications: none Post-operative Condition: stable Disposition: same day surgery
== END 2023-04-01 17:20 | disposition home or self-care (01) ==
PROVIDERS: Student in an Organized Health Care Education/Training Program; PCP Family Medicine; Referring Provider Surgery; Visit Provider Surgery
PROC: (CPT 49593; principal; 2023-04-01 13:45)
DX: K42.9 Umbilical hernia without obstruction or gangrene (principal); I48.0 Paroxysmal atrial fibrillation
CPT/HCPCS: 49593; 36415; 80048; 82550; 84484; 85025; 85610; 85730; 86850; 86900; 86901; 93005; 93010; J0171; J0690; J2310; J2405; J2704; J3010; J3490

== ENCOUNTER → 2023-09-07 09:05 | Outpatient (CLI) | payer OTHER, SELFPAY ==
[2023-09-07 11:14] LABS: Prostate Specific Antigen 2.19 ng/mL (0.10-4.00)
[2023-09-07 11:16] LABS: TSH w/ Reflex to FT4 2.15 uIU/mL (0.47-4.68)
== END ==
PROVIDERS: PCP Family Medicine; Referring Provider Family Medicine; Visit Provider Family Medicine
DX: N40.1 Benign prostatic hyperplasia with lower urinary tract symptoms (principal); R35.1 Nocturia
CPT/HCPCS: 36415; 84153; 84443

== ENCOUNTER 2023-09-27 13:08 | Emergency (ER) | payer OTHER, SELFPAY ==
[2023-09-27 13:11] VITALS: BP 125/66; PULSE 80; RESP 16; TEMP 36.9; O2SAT 98; BMI 32.1
[2023-09-27] MEDS: TET,DIPH,PERTUSS(ACELL),VAC/PF 0.5 ML SYRINGE IM (14:25)
--- NOTE | 2023-09-27 15:49 | ED_ITS ---
HPI - Wound/Laceration General Chief Complaint: Wound/Laceration Stated Complaint: lac on lt foot Time Seen by Provider: 09/27/23 15:49 Source: patient and family Mode of arrival: Wheelchair History of Present Illness HPI narrative: Patient is a 78-year-old male history of TAVR atrial fibrillation on Eliquis and aspirin presenting today with left heel laceration. He reports that he was up on a ladder trimming tree branches when he dropped a nitesh they slid in she when they cut his medial heel. He has no worsening numbness or tingling in his foot he is chronic neuropathy. He has full range of motion of flexion and extension it Achilles seems to be intact. No other injury. He did not hit his head. Tetanus is not up to date Related Data Home Medications Medication Instructions Recorded Confirmed aspirin 81 mg chewable tablet 81 mg PO DAILY 06/12/22 04/16/23 ezetimibe 10 mg tablet 10 mg PO DAILY 09/07/23 09/07/23 Previous Rx's Medication Instructions Recorded acetaminophen 325 mg capsule 650 mg (2 x 325 mg) PO QID PRN 04/01/23 (Tylenol) pain #60 caps docusate sodium 100 mg capsule 100 mg PO BID #30 caps 04/01/23 (Colace) amlodipine 5 mg tablet 5 mg PO BID #180 tabs 04/14/23 apixaban 5 mg tablet (Eliquis) 5 mg PO BID #180 tabs 04/14/23 levothyroxine 100 mcg tablet 100 mcg PO QAM #90 tabs 04/14/23 lisinopril 40 mg tablet 40 mg PO DAILY #90 tabs 04/14/23 spironolactone 25 mg tablet 25 mg PO DAILY #90 tabs 04/14/23 betamethasone dipropionate 0.05 % 1 applic topical BID PRN rash #120 05/05/23 topical cream grams clobetasol 0.05 % topical cream 1 applic topical QAM AND QPM #320 05/05/23 grams doxazosin 8 mg tablet 8 mg PO HS #90 tabs 08/24/23 duloxetine 60 mg capsule,delayed 60 mg PO DAILY #90 caps 08/24/23 release gabapentin 600 mg tablet 600 mg PO TID #270 tabs 08/24/23 (Neurontin) furosemide 40 mg tablet (Lasix) 40 mg PO DAILY #30 tabs 09/07/23 Allergies Allergy/AdvReac Type Severity Reaction Status Date / Time venom-honey bee Allergy Mild LOCALIZED Verified 09/27/23 13:19 [bee venom (honey bee)] SWELLING atorvastatin [ATORVASTATIN] AdvReac Unknown MOOD Verified 09/27/23 13:19 DISORDER, ANGER Patient History Medical History H/O severe sun exposure Nose abnormality Mental status change resolved Left arm weakness Colon cancer high risk Excessive daytime sleepiness Obstructive sleep apnea of adult Lumbar radiculopathy Lumbar degenerative disc disease Spinal stenosis (~2012) Foot pain Chronic back pain Carpal tunnel syndrome Infection of pelvis Osteomyelitis (~2000) Mumps MRSA (methicillin resistant Staphylococcus aureus) Measles Chicken pox Hearing loss Cataract GERD (gastroesophageal reflux disease) (~1999) Hypothyroidism (~1999) Hyperlipidemia (~1993) Kidney disease (~2014) BPH (benign prostatic hyperplasia) (~1999) Stage 3 chronic kidney disease (02/26/15) Hypertension Mitral valve insufficiency Aortic valve regurgitation Benign prostatic hyperplasia with nocturia Paroxysmal atrial fibrillation Surgical History History of spinal surgery (~2012) Status post transurethral resection of prostate (~2009) Family History Mother No problems noted. 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 CARDIOVASCULAR: peripheral pulses in tact, cap refill <2 sec RESPIRATORY: No respiratory distress, speaks in full sentences without difficulty [ABDOMEN: Soft, nontender, no guarding or rebound] EXTREMITIES: Normal range of motion, no clubbing or edema. Neurovascularly intact Left lower extremity full flexion and extension distal pedal pulses intact Achilles tendon is intact able to move all toes. Fairly superficial laceration medial NEUROLOGICAL: Cranial nerves II through XII grossly intact. Normal gait and speech. SKIN: Left heel laceration 2 cm more gaping in the superior end in the inferior and Procedures Laceration Repair Laceration 1: Site: lower extremity Side (If applicable): left Size (cm): 2 Description: linear Depth: simple, single layer Local Anesthetic: lidocaine 1% and with epi Amount of anesthesia used (mL): 2 Pre-repair: wound explored, irrigated extensively and deep structures intact Skin layer closed with: nylon Skin layer suture size: 4-0 Number of sutures: 2 Technique: simple, interrupted Course Orders Ordered: Discontinued Medications Diphtheria/Tetanus/Acell Pertussis (Tet,Diph,Pertuss(Acell),Vac/Pf 0.5 Ml Syringe) 0.5 ml IM .ONCE ONE Stop: 09/27/23 13:39 Last Admin: 09/27/23 14:25 Dose: 0.5 ml Documented By: DARRELL Vital Signs Vital signs: Vital Signs - 8 hr 09/27/23 13:11 09/27/23 16:44 Temperature 98.4 F 98.1 F Pulse Rate 80 57 L Respiratory Rate 16 18 Blood Pressure 125/66 175/81 H Pulse Oximetry 98 97 Oxygen Delivery Method Room Air Room Air MDM - Wound/Laceration MDM Narrative Medical decision making narrative: Patient pam 78-year-old male who presents today with left heel laceration. Fairly superficial but does require about 2 sutures has a superior part. Achilles tendon seems to be intact no other injury. This is given until up-to-date. Supportive care only Discharge Plan Departure Patient Disposition: Home Clinical Impression: Laceration of left heel Instructions: DI for Laceration Repair Activity Restrictions/Additional Instructions: *You have been diagnosed with left heel laceration *What to do: Have sutures removed in about 5-7 days. Heat clean and dry with soap and water. May apply antibiotic ointment 1-2 times daily *Continue to take medications as directed Tylenol if needed for pain *Follow up with your primary care provider in 2-3 days or call [phone] *Return to ER if you should have redness swelling pain or any new, worsening or concerning symptoms Prescriptions: No Action aspirin 81 mg tablet,chewable 81 mg PO DAILY Eliquis 5 mg tablet 5 mg PO BID Qty: 180 3RF Rx Instructions: Take one tablet by mouth twice daily. levothyroxine 100 mcg tablet 100 mcg PO QAM Qty: 90 3RF Rx Instructions: Take one tablet by mouth daily in the morning. amlodipine 5 mg tablet 5 mg PO BID Qty: 180 3RF lisinopril 40 mg tablet 40 mg PO DAILY Qty: 90 3RF spironolactone 25 mg tablet 25 mg PO DAILY Qty: 90 3RF betamethasone dipropionate 0.05 % cream 1 applic topical BID PRN (Reason: rash) Qty: 120 3RF clobetasol 0.05 % cream 1 applic TOP QAM AND QPM Qty: 320 3RF doxazosin 8 mg tablet 8 mg PO HS Qty: 90 3RF Rx Instructions: Take one tablet by mouth in the evening gabapentin [Neurontin] 600 mg tablet 600 mg PO TID Qty: 270 0RF Rx Instructions: Take one tablet by mouth three times daily duloxetine 60 mg capsule,delayed release(DR/EC) 60 mg PO DAILY Qty: 90 0RF ezetimibe 10 mg tablet 10 mg PO DAILY furosemide [Lasix] 40 mg tablet 40 mg PO DAILY Qty: 30 0RF docusate sodium [Colace] 100 mg capsule 100 mg PO BID Qty: 30 0RF acetaminophen [Tylenol] 325 mg capsule 650 mg PO QID PRN (Reason: pain) Qty: 60 0RF Referrals: Bud Griffith MD [Primary Care Provider] - Stand Alone Forms: Patient Portal/API
--- NOTE | 2023-09-27 16:42 | PC.NURSE ---
Laceration from pearing tree. Last tetanus approx 9+ years ago. Pt able to flex foot. No obvious tendon involvment.
[2023-09-27 16:44] VITALS: BP 175/81; PULSE 57; RESP 18; TEMP 36.7; O2SAT 97
== END 2023-09-27 16:45 | disposition home or self-care (01) ==
PROVIDERS: Emergency Provider Emergency Medicine; PCP Family Medicine
DX: S91.312A Laceration without foreign body, left foot, initial encounter (principal); W27.8XXA Contact with other nonpowered hand tool, initial encounter; Z23 Encounter for immunization
CPT/HCPCS: 12001; 90471; 99283; 90715

== ENCOUNTER → 2023-12-07 11:34 | Outpatient (CLI) | payer OTHER, SELFPAY | PROVIDERS: PCP Family Medicine; Visit Provider Physician Assistant | DX: T14.8XXA Other injury of unspecified body region, initial encounter (principal) | CPT/HCPCS: 87070; 87075; 87077; 87147; 87205 ==

== ENCOUNTER 2024-05-01 18:26 | Emergency (ER) | payer OTHER, SELFPAY ==
[2024-05-01] VITALS (8 sets, daily range): BP systolic 138–161; BP diastolic 73–85; PULSE 63–74; RESP 17–22; TEMP 36.5; O2SAT 94–98; BMI 31.7
--- NOTE | 2024-05-01 18:41 | DI.RAD.S_ITS ---
PROCEDURE: XR CHEST 1V INDICATIONS: chest pain TECHNIQUE: One view of the chest was acquired. COMPARISON: [facility], CR, XR CHEST 1V, 06/07/2022, 18:19. FINDINGS: Surgical changes and devices: None. Lungs and pleura: Lungs are clear. No pleural effusions or pneumothorax. Mediastinum: Mediastinal contours appear normal. Heart size is normal. Bones and chest wall: No suspicious bony lesions. Overlying soft tissues appear unremarkable. IMPRESSION: No acute cardiopulmonary pathology. Dictated by: Carlos Shirley M.D. on 05/01/2024 at 19:21 Approved by: Carlos Shirley M.D. on 05/01/2024 at 19:22
--- NOTE | 2024-05-01 18:50 | EKG_ITS ---
[address] [address] Test Date: 2024-05-01 Pat Name: Richard Ugalde Department: 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
--- NOTE | 2024-05-01 18:54 | ED_ITS ---
HPI - Dizziness General Chief Complaint: Dizziness Stated Complaint: dizziness, not feeling right, [place] Time Seen by Provider: 05/01/24 18:41 History of Present Illness HPI Narrative: Patient is an 78-year-old male history of atrial fibrillation on Eliquis and aspirin history of TAVR presenting today with head pressure and dizziness. He reports some light posterior head pressure that started around 10:00 a.m.. He was some mild dizziness no nausea. He also has some very mild left facial droop which notices new. No numbness tingling or weakness. He denies any chest pain or palpitations. Just reports some light pressure in his head. Dizziness isn't any worse whenever he stands up or turns his head. No prior history of vertigo. Related Data Home Medications Medication Instructions Recorded Confirmed aspirin 81 mg chewable tablet 81 mg PO DAILY 06/12/22 04/22/24 ezetimibe 10 mg tablet 10 mg PO DAILY 09/07/23 04/22/24 Previous Rx's Medication Instructions Recorded amlodipine 5 mg tablet 5 mg PO BID #180 tabs 04/14/23 apixaban 5 mg tablet (Eliquis) 5 mg PO BID #180 tabs 04/14/23 betamethasone dipropionate 0.05 % 1 applic topical BID PRN rash #120 05/05/23 topical cream grams clobetasol 0.05 % topical cream 1 applic topical QAM AND QPM #320 05/05/23 grams doxazosin 8 mg tablet 8 mg PO HS #90 tabs 08/24/23 duloxetine 60 mg capsule,delayed 60 mg PO DAILY #90 caps 08/24/23 release gabapentin 600 mg tablet 600 mg PO TID #270 tabs 08/24/23 (Neurontin) furosemide 40 mg tablet (Lasix) 40 mg PO DAILY #30 tabs 09/07/23 mupirocin 2 % topical ointment 1 applic topical BID #22 grams 12/07/23 chlorhexidine gluconate 4 % 1 applic topical ONCE #473 mL 02/28/24 topical liquid (Antiseptic Skin Cleanser (chlorhexidine)) levothyroxine 100 mcg tablet 100 mcg PO QAM #90 tabs 04/18/24 azithromycin 250 mg tablet See Rx Instructions PO .COMPLEX #6 04/22/24 tabs benzonatate 200 mg capsule 200 mg PO BID PRN cough #28 caps 04/22/24 spironolactone 25 mg tablet 25 mg PO DAILY #90 tabs 04/25/24 lisinopril 40 mg tablet 40 mg PO DAILY #90 tabs 04/26/24 ondansetron 4 mg disintegrating 4 mg PO Q8H PRN nausea and 05/01/24 tablet vomiting #10 tabs Allergies Allergy/AdvReac Type Severity Reaction Status Date / Time venom-honey bee Allergy Mild LOCALIZED Verified 04/22/24 10:38 [bee venom (honey bee)] SWELLING atorvastatin [ATORVASTATIN] AdvReac Unknown MOOD Verified 04/22/24 10:38 DISORDER, ANGER Patient History Medical History H/O severe sun exposure Nose abnormality Mental status change resolved Left arm weakness Colon cancer high risk Excessive daytime sleepiness Obstructive sleep apnea of adult Lumbar radiculopathy Lumbar degenerative disc disease Spinal stenosis (~2012) Foot pain Chronic back pain Carpal tunnel syndrome Infection of pelvis Osteomyelitis (~2000) Mumps MRSA (methicillin resistant Staphylococcus aureus) Measles Chicken pox Hearing loss Cataract GERD (gastroesophageal reflux disease) (~1999) Hypothyroidism (~1999) Hyperlipidemia (~1993) Kidney disease (~2014) BPH (benign prostatic hyperplasia) (~1999) Stage 3 chronic kidney disease (02/26/15) Hypertension Mitral valve insufficiency Aortic valve regurgitation Benign prostatic hyperplasia with nocturia Paroxysmal atrial fibrillation Surgical History History of spinal surgery (~2012) Status post transurethral resection of prostate (~2009) Family History Mother No problems noted. 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 HEENT: Head atraumatic,EOMI, pupils reactive, mild left facial droop, moist mucous membranes CARDIOVASCULAR: Regular rate and rhythm without murmurs, rubs or gallops. RESPIRATORY: Breath sounds equal bilaterally, no wheezes rales or rhonchi. ABDOMEN: Soft, nontender. Normoactive bowel sounds all 4 quadrants. No guarding or rebound. EXTREMITIES: Normal range of motion, no clubbing or edema. Neurovascularly intact NEUROLOGICAL: Alert and oriented x4.Normal gait and speech. Cranial nerves II through XII grossly intact. Good [id number], good [id number], strength equal bilaterally, no dysarthria or aphasia, sensation in tact to soft touch bilaterally, no visual changes, SKIN: Warm, dry, no laceration, no petechiae, no rashes or lesions. Scores NIH Stroke Scale Level of Conciousness: Alert, keenly responsive Ask month/age: Answers both questions correctly. Open/close eyes, close hand: Performs both tasks correctly Best gaze horizontal: Normal Visual solis: No visual loss Facial palsy: Minor paralysis, flattened nasolabial fold, asymmetry on smiling Left arm drift: No drift for full 10 sec Right arm drift: No drift for full 10 sec Left leg drift: No drift for full 5 sec Right leg drift: No drift for full 5 sec Limb ataxia: Absent Sensory on face/arms/legs: Normal, no sensory loss Best language: No aphasia, normal Dysarthria: Normal Extinction or inattention: No abnormality Total NIH Stroke scale score: 1 Course Orders Ordered: ED Orders 05/01/24 18:41 XR chest 1V Stat EKG-12 Lead Stat 05/01/24 18:47 Complete Blood Count AUTO DIFF Stat Comprehensive Metabolic Panel Stat Lipase Stat Troponin & CK Cardiac Panel Stat 05/01/24 18:54 MR head/brain wo con Stat 05/01/24 18:57 MR stroke Stat 05/01/24 19:41 CT angio head and neck Stat CT head/brain wo con Stat Discontinued Medications Sodium Chloride (Normal Saline 0.9%) 1,000 mls @ 1,000 mls/hr IV BOLUS ONE Stop: 05/01/24 19:40 Last Infusion: 05/01/24 19:50 Dose: Infused Documented By: Admin: 05/01/24 19:00 Dose: 1,000 mls/hr Documented By: MIKEY Acetaminophen (Ofirmev) 1,000 mg in 100 mls @ 400 mls/hr IV NOW ONE Stop: 05/01/24 19:08 Last Infusion: 05/01/24 19:50 Dose: Infused Documented By: Admin: 05/01/24 19:00 Dose: 400 mls/hr Documented By: MIKEY Meclizine HCl (Meclizine Hcl 12.5 Mg Tablet) 25 mg PO NOW ONE Stop: 05/01/24 18:42 Last Admin: 05/01/24 19:00 Dose: 25 mg Documented By: MIKEY Ondansetron HCl (Ondansetron 4 Mg/2 Ml Inj) 4 mg IV NOW ONE Stop: 05/01/24 18:42 Last Admin: 05/01/24 19:00 Dose: 4 mg Documented By: MIKEY Vital Signs Vital signs: Vital Signs - 8 hr 05/01/24 18:30 05/01/24 19:39 05/01/24 19:40 Temperature 97.7 F Pulse Rate 74 71 71 Respiratory Rate 18 19 Blood Pressure 138/84 Pulse Oximetry 98 97 Oxygen Delivery Method Room Air 05/01/24 19:41 05/01/24 19:41 05/01/24 20:00 Temperature Pulse Rate 68 69 Respiratory Rate 19 20 Blood Pressure 155/73 H Pulse Oximetry 98 95 Oxygen Delivery Method 05/01/24 20:30 05/01/24 21:00 05/01/24 22:47 Temperature Pulse Rate 63 74 64 Respiratory Rate 17 22 21 Blood Pressure Pulse Oximetry 94 96 96 Oxygen Delivery Method 05/01/24 22:47 Temperature Pulse Rate Respiratory Rate Blood Pressure 161/85 H Pulse Oximetry Oxygen Delivery Method MDM - Dizziness Lab Data 05/01/24 18:47 05/01/24 18:47 Labs: Lab Results 05/01/24 Range/Units 18:47 WBC 6.9 (4.5-11.0) X10^3/uL RBC 4.53 (4.5-5.9) X10^6/uL Hgb 13.3 L (13.5-17.5) g/dL Hct 40.3 L (41-53) % MCV 89.0 (80-100) fL MCH 29.4 (26-34) PG MCHC 33.0 (30-36) % RDW 13.4 (11.6-14.8) % Plt Count 180 (150-400) X10^3/uL Neut % (Auto) 67.6 (50-75) % Lymph % (Auto) 18.1 L (25-40) % [place] % (Auto) 7.8 (3-14) % Eos % (Auto) 5.9 H (2-4) % Baso % (Auto) 0.6 (0-2) % Neut # (Auto) 4600 (0288-6228) /uL Lymph # (Auto) 1200 (4894-7864) /uL [place] # (Auto) 500 (0-900) /uL Eos # (Auto) 400 (0-450) /uL Baso # (Auto) 0 (0-100) /uL Sodium 137 (137-145) mmol/L Potassium 4.5 (3.4-5.1) mmol/L Chloride 104 (98-107) mmol/L Carbon Dioxide 23 (22-32) mmol/L BUN 25 H (9-20) mg/dL Creatinine 1.36 H (0.66-1.25) mg/dL Estimated GFR 53 L (>60) mL/min BUN/Creatinine Ratio 18.4 (6-22) Glucose 106 (80-110) mg/dL Calcium 10.3 H (8.4-10.2) mg/dL Total Bilirubin 0.4 (0.2-1.3) mg/dL AST 49 (17-59) IU/L ALT 41 (<50) IU/L Alkaline Phosphatase 115 (38-126) U/L Total Creatine Kinase 313 H (55-170) U/L Troponin I < 0.012 (0.01-0.034) ng/mL Total Protein 7.8 (6.3-8.2) g/dL Albumin 4.5 (3.5-5.0) g/dL Globulin 3.3 (1.7-4.1) g/dL Albumin/Globulin Ratio 1.4 (1.0-2.8) Lipase 171 (23-300) U/L Imaging Data CT scan - head: Radiologist's Impression: No intracranial process CTA - brain/neck: Radiologist's Impression: No significant intracranial arterial abnormality seen No significant abnormality seen with an arterial of the neck Chest x-ray: Radiologist's Impression: PROCEDURE: XR CHEST 1V INDICATIONS: chest pain TECHNIQUE: One view of the chest was acquired. COMPARISON: [facility], CR, XR CHEST 1V, 06/07/2022, 18:19. FINDINGS: Surgical changes and devices: None. Lungs and pleura: Lungs are clear. No pleural effusions or pneumothorax. Mediastinum: Mediastinal contours appear normal. Heart size is normal. Bones and chest wall: No suspicious bony lesions. Overlying soft tissues appear unremarkable. IMPRESSION: No acute cardiopulmonary pathology. Dictated by: Carlos Shirley M.D. on 05/01/2024 at 19:21 ECG Data Attestation: I personally reviewed and interpreted this ECG as follows: Prior ECG tracings: available for review Interpretation: Sinus rhythm rate 69 IN interval 210 QRS [address] changes MDM Narrative Medical decision making narrative: [facility] CC: Headache dizziness Complicating co-morbidities: atrial fibrillation on Eliquis and aspirin history of TAVR Data collected from: Patient and Medical records reviewed: [ ] Differential considered: Intracranial hemorrhage, CVA, vertigo Exam documented above, pertinent findings include: Alert pleasant well- appearing 78-year-old male NIH stroke scale is 1, for very slight left facial droop. He has no aphasia or dysarthria no ataxia present. Lower extremity edema Lab Test results independently reviewed as above. Pertinent findings: CBC within normal limits CMP shows mild increase in creatinine 1.36 previously 1.18 otherwise electrolytes are within normal limits Troponin BNP within normal limits Independently reviewed EKG as above No arrhythmia normal sinus rhythm no acute ischemia Imaging studies independently reviewed: Head CT noncontrast no acute intracranial abnormality CT angio no large vessel occlusion Chest x-ray no acute cardiopulmonary process Treatments: IV fluids IV Tylenol Zofran meclizine Re-evaluations: Patient overall feeling better the pressure in his head he reports his gone. Dizziness was never really severe. Discussion: 78-year-old male on Eliquis presenting today with some lightheaded pressure dizziness and new left facial droop. Not a candidate for TNK out of window also on Eliquis. Patient has a NIH of 1 poorly for very slight left facial droop. Head CT and CT angio were negative blood work is overall reassuring does show a slight elevation in his creatinine of 1.36 possible mild dehydration which may explain some of his symptoms. Dizziness is not debilitating. Overall he improved with treatment here in the ED feeling better. No evidence of intracranial hemorrhage on CT Education with and patient about when to return to ED all questions have been addressed they have been very patient during stay in Ed. Discharge Plan Departure Patient Disposition: Home Clinical Impression: Acute dehydration, Dizziness Instructions: DI for Dizziness-Nonvertigo Activity Restrictions/Additional Instructions: *You have been diagnosed with dehydration dizziness *What to do: At this time increase fluids as tolerated *Continue to take medications as directed Tylenol 1000 mg every 6 hours needed for headache Zofran 4 mg every hours for nausea or vomiting--> SAfeway *Follow up with your primary care provider in 2-3 days or call [phone] *Return to ER if you should have increasing dizziness facial droop weakness numbness tingling or any new, worsening or concerning symptoms Prescriptions: New ondansetron 4 mg tablet,disintegrating 4 mg PO Q8H PRN (Reason: nausea and vomiting) Qty: 10 0RF No Action aspirin 81 mg tablet,chewable 81 mg PO DAILY mupirocin 2 % ointment 1 applic topical BID Qty: 22 0RF Rx Instructions: apply to the wound and to inner nostrils chlorhexidine gluconate [Antiseptic Skin Clnsr(chlorhe)] 4 % liquid 1 applic topical ONCE Qty: 473 0RF Rx Instructions: as a single dose or as needed. benzonatate 200 mg capsule 200 mg PO BID PRN (Reason: cough) Qty: 28 0RF azithromycin 250 mg tablet See Rx Instructions PO .COMPLEX Qty: 6 0RF Rx Instructions: For 250 mg dose pack: take 500 mg today (day 1), then 250 mg for 4 days (days 2-5) PO Eliquis 5 mg tablet 5 mg PO BID Qty: 180 3RF Rx Instructions: Take one tablet by mouth twice daily. amlodipine 5 mg tablet 5 mg PO BID Qty: 180 3RF betamethasone dipropionate 0.05 % cream 1 applic topical BID PRN (Reason: rash) Qty: 120 3RF clobetasol 0.05 % cream 1 applic TOP QAM AND QPM Qty: 320 3RF doxazosin 8 mg tablet 8 mg PO HS Qty: 90 3RF Rx Instructions: Take one tablet by mouth in the evening gabapentin [Neurontin] 600 mg tablet 600 mg PO TID Qty: 270 0RF Rx Instructions: Take one tablet by mouth three times daily duloxetine 60 mg capsule,delayed release(DR/EC) 60 mg PO DAILY Qty: 90 0RF levothyroxine 100 mcg tablet 100 mcg PO QAM Qty: 90 0RF Rx Instructions: Take one tablet by mouth daily in the morning. spironolactone 25 mg tablet 25 mg PO DAILY Qty: 90 3RF lisinopril 40 mg tablet 40 mg PO DAILY Qty: 90 3RF ezetimibe 10 mg tablet 10 mg PO DAILY furosemide [Lasix] 40 mg tablet 40 mg PO DAILY Qty: 30 0RF Referrals: Bud Griffith MD [Primary Care Provider] - Stand Alone Forms: Patient Portal/API/Survey
[2024-05-01 18:56] LABS: Add Manual Diff / Slide Review NO; Basophils Absolute Auto 0 /uL (0-100); Basophils Percent Auto 0.6 % (0-2); Eosinophils Absolute Auto 400 /uL (0-450); Eosinophils Percent Auto 5.9 % (2-4); Hematocrit 40.3 % (41-53); Hemoglobin 13.3 g/dL (13.5-17.5); Lymphocytes Absolute Auto 1200 /uL (1100-4500); Lymphocytes Percent Auto 18.1 % (25-40); Mean Corpuscular Hemoglobin 29.4 PG (26-34); Monocytes Absolute Auto 500 /uL (0-900); Monocytes Percent Auto 7.8 % (3-14); Neutrophils Absolute Auto 4600 /uL (1500-7000); Neutrophils Percent Auto 67.6 % (50-75); Platelet Count 180 X10^3/uL (150-400); Red Blood Cell Count 4.53 X10^6/uL (4.5-5.9); Red Cell Distribution Width 13.4 % (11.6-14.8); White Blood Cell Count 6.9 X10^3/uL (4.5-11.0)
[2024-05-01] MEDS: MECLIZINE HCL 12.5 MG TABLET 25 MG PO (19:00)
[2024-05-01] MEDS: SODIUM CHLORIDE 0.9% 1,000 ML 1000 ML IV (19:00)
[2024-05-01] MEDS: ONDANSETRON 4 MG/2 ML INJ IV (19:00)
[2024-05-01] MEDS: ACETAMINOPHEN IV 1,000 MG/100 ML VIAL 400 MG IV (19:00)
[2024-05-01 19:04] LABS: Alanine Aminotransferase 41 IU/L (<50); Albumin 4.5 g/dL (3.5-5.0); Albumin Globulin Ratio 1.4 (1.0-2.8); Alkaline Phosphatase 115 U/L (38-126); Aspartate Aminotransferase 49 IU/L (17-59); BUN Creatinine Ratio 18.4 (6-22); Bilirubin Total 0.4 mg/dL (0.2-1.3); Blood Urea Nitrogen 25 mg/dL (9-20); Calcium 10.3 mg/dL (8.4-10.2); Carbon Dioxide 23 mmol/L (22-32); Chloride 104 mmol/L (98-107); Creatine Kinase 313 U/L (55-170); Estimated Glomerular Filt Rate 53 mL/min (>60); Globulin 3.3 g/dL (1.7-4.1); Glucose 106 mg/dL (80-110); HEMOLYSIS < 15 (0-50); Lipase 171 U/L (23-300); Potassium 4.5 mmol/L (3.4-5.1); Sodium 137 mmol/L (137-145); Total Protein 7.8 g/dL (6.3-8.2)
[2024-05-01 19:16] LABS: Troponin I < 0.012 ng/mL (0.01-0.034)
--- NOTE | 2024-05-01 20:22 | PC.NURSE ---
Pt ambulatory to the bathroom w/steady gait. No c/o dizziness at this time.
--- NOTE | 2024-05-01 21:15 | PC.NURSE ---
[facility] ambulance here to transport pt to [facility] for CT imaging. Pt remains alert, AOx4, VS stable. Ambulatory onto stretcher, states no pain or needs at this time.
== END 2024-05-01 23:57 | disposition home or self-care (01) ==
PROVIDERS: Emergency Provider Emergency Medicine; PCP Family Medicine
DX: E86.0 Dehydration (principal); R51.9 Headache, unspecified; R42 Dizziness and giddiness; R29.810 Facial weakness; R29.701 NIHSS score 1; Z79.01 Long term (current) use of anticoagulants; Z95.2 Presence of prosthetic heart valve
CPT/HCPCS: 36415; 71045; 80053; 82550; 83690; 84484; 85025; 93005; 96365; 96375; 99284; J0134; J2405

== ENCOUNTER → 2024-09-02 07:18 | Outpatient (CLI) | payer OTHER, SELFPAY ==
[2024-09-02 08:15] LABS: Add Manual Diff / Slide Review NO; Hematocrit 39.6 % (41-53); Hemoglobin 13.3 g/dL (13.5-17.5); Lymphocytes Absolute Auto 1200 /uL (1100-4500); Mean Corpuscular HGB Conc 33.6 % (30-36); Mean Corpuscular Hemoglobin 30.4 PG (26-34); Mean Corpuscular Volume 90.4 fL (80-100); Platelet Count 138 X10^3/uL (150-400)
[2024-09-02 08:25] LABS: Alanine Aminotransferase 44 IU/L (<50); Albumin 4.3 g/dL (3.5-5.0); Albumin Globulin Ratio 1.6 (1.0-2.8); Alkaline Phosphatase 130 U/L (38-126); Blood Urea Nitrogen 30 mg/dL (9-20); Calcium 10.3 mg/dL (8.4-10.2); Carbon Dioxide 27 mmol/L (22-32); Chloride 104 mmol/L (98-107); Cholesterol 143 mg/dL (140-199); Estimated Glomerular Filt Rate 54 mL/min (>60); Globulin 2.7 g/dL (1.7-4.1); Glucose 106 mg/dL (70-99); HDL Cholesterol 44 mg/dL (40-60); HEMOLYSIS < 15 (0-50); Potassium 4.8 mmol/L (3.4-5.1); Sodium 137 mmol/L (137-145); Total Protein 7.0 g/dL (6.3-8.2); Triglycerides 82 mg/dL (35-150)
[2024-09-02 08:54] LABS: TSH w/ Reflex to FT4 2.02 uIU/mL (0.47-4.68)
== END ==
PROVIDERS: PCP Family Medicine; Referring Provider Family Medicine; Visit Provider Family Medicine
DX: Z12.5 Encounter for screening for malignant neoplasm of prostate (principal); I12.9 Hypertensive chronic kidney disease with stage 1 through stage 4 chronic kidney disease, or unspecified chronic kidney disease; N18.31 Chronic kidney disease, stage 3a; E78.2 Mixed hyperlipidemia; E03.9 Hypothyroidism, unspecified; N40.1 Benign prostatic hyperplasia with lower urinary tract symptoms; R35.1 Nocturia
CPT/HCPCS: 36415; 80053; 80061; 84443; 85025; G0103

== ENCOUNTER 2024-10-27 14:48 | Outpatient (CLI) | payer OTHER, SELFPAY ==
[2024-10-27] VITALS (8 sets, daily range): BP systolic 125–151; BP diastolic 66–83; PULSE 61–71; RESP 16–20; TEMP 36.6; O2SAT 97–100
[2024-10-27] MEDS: MIDAZOLAM 2 MG/2 ML VIAL IV (16:18)
[2024-10-27] MEDS: BETAMETHASONE 30 MG/5 ML MDV 12 MG INJ (16:21)
[2024-10-27] MEDS: BETAMETHASONE 30 MG/5 ML MDV 6 MG INJ (16:24)
--- NOTE | 2024-10-27 16:39 | P.PCN_ITS ---
Date/Time/Diagnoses Date of procedure: 10/27/24 Time of procedure: 16:39 Pre-procedure diagnosis: 1. FORAMINAL STENOSIS WITH LE SYMPTOMS Post-procedure diagnosis: same Procedure Notes Procedure: 1. FLUOROSCOPICALLY GUIDED CONTRAST CONTROLLED TRANSFORAMINAL EPIDURAL STEROID INJECTION - LEFT L4/5 Indications: Richard is referred by Dr. Griffith for treatment of Foraminal Stenosis with Left LE Symptoms Physician: Yunior Hoffman Total Fluoroscopy time (seconds): 12 Total sedation minutes: 15 Complications: none Procedure in detail & Post-procedure care: FINDINGS Foraminal Nerve Root Compression secondary to disc disease and facet hypertrophy DESCRIPTION OF PROCEDURE Following review of allergy and review of potential side effects and complications, including, but not necessarily limited to, infection, allergic reaction, local tissue breakdown, stroke, temporary or permanent nerve injury, paralysis, and possible , the patient indicated that the patient understood and agreed to proceed. An informed consent document was signed by the patient, witnessed by a nurse, and placed in the patient's chart. Additionally, other treatment options including medications, modalities, and physical therapy were reviewed with the patient. After review of previous anaesthesic history and IV conscious sedation the patient was deemed safe to proceed with today?s procedure with IV conscious sedation as ASA class II designation. Safety time-out was performed to confirm patient ID, procedure to be performed and site of procedure. IV sedation was accomplished with a combination of 2mg of Versed administered by the RN after DO order, titrated to patient comfort during the course of the procedure while the patient remained responsive to all verbal commands In the prone position following sterile prep and drape of the lumbar region, the left L4/5 posterior neuroforamen was identified fluoroscopically. The skin was anesthetized via a 25-gauge 1.5-inch needle with 1% lidocaine solution. At this point, a 25-gauge 3.5-inch spinal needle was atraumatically introduced and advanced under fluoroscopic guidance through the posterior left L4/5 neuroforamen to approximately the anterior aspect of the canal. Depth was confirmed on lateral view. Following negative aspiration, injection of approximately 1.5 cc of Isovue 200 under live fluoroscopy in the AP view confirmed excellent flow along the nerve root, into the epidural space without vascular or intrathecal uptake observed Radiological data, including multiple fluoroscopic views of the lumbosacral spine, reveal a spinal needle at the left L4/5 posterior neuroforamen. Subsequent views show flow of contrast material flowing superiorly and inferiorly along the nerve root confirming epidural flow. Subsequently, a test dose of 1.5cc of 0.25% marcaine solution was administered and patient was observed for two minutes for signs or symptoms of complications, including abdominal pain, shortness of breath, bilateral upper or lower extremity weakness, nausea and vomiting, prior to steroid injection. At this point, a total of 3cc or 10mg of dexamethasone and 12mg of betamethasone was injected without incident. The procedure tolerated the procedure well without signs or symptoms of complications prior to transfer to the recovery area continued monitoring without incident. The patient was then transferred to the recovery area where they were observed for an appropriate time after the injection. The patient reported a VAS score of 7 prior to the procedure and a post- procedure VAS of 0. POST OP INSTRUCTIONS The patient was provided a Pain Log to continue to record their response to the target-specific procedure prior to follow-up visit with their referring physician. Additionally, specific post-injection care instructions and a contact number to our office were provided if concerns arise regarding possible complications associated with the procedure are suspected.
--- NOTE | 2024-10-27 16:40 | P.PCN_ITS ---
Date/Time/Diagnoses Date of procedure: 10/27/24 Time of procedure: 16:40 Pre-procedure diagnosis: 1. FORAMINAL STENOSIS WITH LE SYMPTOMS Post-procedure diagnosis: same Procedure Notes Procedure: 1. FLUOROSCOPICALLY GUIDED CONTRAST CONTROLLED TRANSFORAMINAL EPIDURAL STEROID INJECTION - Left L5/S1 Indications: Richard is referred by Dr. Griffith for treatment of Foraminal Stenosis with Left LE Symptoms Physician: Yunior Hoffman Total Fluoroscopy time (seconds): 12 Total sedation minutes: 15 Complications: none Procedure in detail & Post-procedure care: FINDINGS Foraminal Nerve Root Compression secondary to disc disease and facet hypertrophy DESCRIPTION OF PROCEDURE Following review of allergy and review of potential side effects and complications, including, but not necessarily limited to, infection, allergic reaction, local tissue breakdown, stroke, temporary or permanent nerve injury, paralysis, and possible , the patient indicated that the patient understood and agreed to proceed. An informed consent document was signed by the patient, witnessed by a nurse, and placed in the patient's chart. Additionally, other treatment options including medications, modalities, and physical therapy were reviewed with the patient. After review of previous anaesthesic history and IV conscious sedation the patient was deemed safe to proceed with today?s procedure with IV conscious sedation as ASA class II designation. Safety time-out was performed to confirm patient ID, procedure to be performed and site of procedure. IV sedation was accomplished with a combination of 2mg of Versed was administered by the RN after DO order, titrated to patient comfort during the course of the procedure while the patient remained responsive to all verbal commands In the prone position following sterile prep and drape of the lumbar region, the Left L5/S1 posterior neuroforamen was identified fluoroscopically. The skin was anesthetized via a 25-gauge 1.5-inch needle with 1% lidocaine solution. At this point, a 25-gauge 3.5-inch spinal needle was atraumatically introduced and advanced under fluoroscopic guidance through the posterior Left L5/S1 neuroforamen to approximately the anterior aspect of the canal. Depth was confirmed on lateral view. Following negative aspiration, injection of approximately 1.5 cc of Isovue 200 under live fluoroscopy in the AP view confirm ed excellent flow along the nerve root, into the epidural space without vascular or intrathecal uptake observed Radiological data, including multiple fluoroscopic views of the lumbosacral spine, reveal a spinal needle at the Left L5/S1 posterior neuroforamen. Subsequent views show flow of contrast material flowing superiorly and inferiorly along the nerve root confirming epidural flow. Subsequently, a test dose of 1.5cc of 0.25%marcaine solution was administered and patient was observed for two minutes for signs or symptoms of complications, including abdominal pain, shortness of breath, bilateral upper or lower extremity weakness, nausea and vomiting, prior to steroid injection. At this point, a total of 3cc or 10mg of dexamethasone and 12mg of betamethasone was injected without incident. The procedure tolerated the procedure well without signs or symptoms of complications prior to transfer to the recovery area continued monitoring without incident. The patient was then transferred to the recovery area where they were observed for an appropriate time after the injection. The patient reported a VAS score of 7 prior to the procedure and a post-procedure VAS of 0. POST OP INSTRUCTIONS The patient was provided a Pain Log to continue to record their response to the target-specific procedure prior to follow-up visit with their referring phy sician. Additionally, specific post-injection care instructions and a contact number to our office were provided if concerns arise regarding possible complications associated with the procedure are suspected.
== END 2024-10-27 16:50 | disposition home or self-care (01) ==
LOC: RAD 14:48
PROVIDERS: PCP Family Medicine; Referring Provider Family Medicine; Visit Provider Physical Medicine & Rehabilitation
DX: M48.061 Spinal stenosis, lumbar region without neurogenic claudication (principal); M51.16 Intervertebral disc disorders with radiculopathy, lumbar region; M47.26 Other spondylosis with radiculopathy, lumbar region; M48.07 Spinal stenosis, lumbosacral region; M51.17 Intervertebral disc disorders with radiculopathy, lumbosacral region; M47.27 Other spondylosis with radiculopathy, lumbosacral region
CPT/HCPCS: 64483; 64484; 99152; J0702; J1100; J2250

== ENCOUNTER → 2024-10-31 07:32 | Outpatient (CLI) | payer OTHER, SELFPAY | PROVIDERS: PCP Family Medicine; Visit Provider Chiropractor | DX: Z86.14 Personal history of Methicillin resistant Staphylococcus aureus infection (principal) | CPT/HCPCS: 87070; 87077; 87147; 87186; 87205 ==

== ENCOUNTER 2024-11-02 13:22 | Inpatient (IN) | payer OTHER, SELFPAY ==
[2024-11-02 13:29] VITALS: BP 121/63; PULSE 89; RESP 18; TEMP 36.9; O2SAT 96; BMI 31.7
--- NOTE | 2024-11-02 14:52 | DI.CT.S_ITS ---
PROCEDURE: CT LE RT W CON INDICATIONS: posterior proximal thigh infection; abscess or deep space? TECHNIQUE: After the administration of intravenous contrast, 3 mm axial sections acquired of the right thigh, with coronal and sagittal reformats. COMPARISON: None. FINDINGS: Image quality: Diagnostic. Bones: Generalized degenerative changes are seen, without lytic lesions or periosteal reactions. Soft tissues: Significant soft tissue fatty stranding with increased enhancement can be seen involving the subcutaneous fat of the right posterolateral thigh. No soft tissue gas is seen. No loculated fluid collection is seen. No muscular involvement is seen. Mild prominence of right groin lymph nodes can be seen. Visualized abdominal cavity is within normal limits, without dilated loops of small bowel. No free air or free fluid can be seen. IMPRESSION: Soft tissue cellulitis seen, without soft tissue abscess. No muscular or bony involvement can be seen. Dictated by: Jeremiah Chaudhry M.D. on 11/02/2024 at 16:03 Approved by: Jeremiah Chaudhry M.D. on 11/02/2024 at 16:05
--- NOTE | 2024-11-02 14:55 | ED_ITS ---
<Statement entered by Ed Houston MD - 11/14/24 15:40> I was present in the department and available for consultation at the time the patient was seen HPI - Skin/Abscess/Foreign Bdy General Chief complaint: Skin/Abscess/Foreign Body Stated complaint: MRSA on buttocks Time Seen by Provider: 11/02/24 14:01 Source: patient Mode of arrival: Ambulatory Limitations: no limitations History of Present Illness HPI narrative: Mr. Ugalde is a very pleasant 79-year-old gentleman with a past medical history of AFib on Eliquis, HTN, CKD 3, TAVR, prior MRSA infection who presents to the emergency department for an infection on the right posterior proximal thigh x 5-6 days. Patient states in the posterior thigh it started as a small pimple but the area started to get larger and become more red concerning for MRSA infection. He went to the walk-in clinic and was started on Bactrim on 10/31/2024. The area became more red and continued expanding so he went back to the walk-in clinic today and had his antibiotic changed to doxycycline. He took his 1st dose of doxycycline today however since then the wound has continued to become more red which prompted his ER arrival. This area is also extremely painful. He denies any numbness, tingling, weakness, fevers, chills, chest pain, shortness of breath, nausea, vomiting, diarrhea, dysuria. He is here with his who contributes to the history. Related Data Previous Rx's ?Medication ?Instructions ?Recorded betamethasone dipropionate 0.05 % 1 applic topical BID PRN rash #120 05/05/23 topical cream grams clobetasol 0.05 % topical cream 1 applic topical QAM A ND QPM #320 05/05/23 grams doxazosin 8 mg tablet 8 mg PO HS #90 tabs 08/24/23 spironolactone 25 mg tablet 25 mg PO DAILY #90 tabs lisinopril 40 mg tablet 40 mg PO DAILY #90 tabs 04/16 03/12 fluticasone propionate 50 1 spray intranasal DAILY #16 grams 05/03/24 mcg/actuation nasal spray,suspension (Flonase Allergy Relief) amlodipine 5 mg tablet 5 mg PO BID #180 tabs chlorhexidine gluconate 4 % 1 applic topical DAILY #47 3 mL 08/13/24 topical liquid mupirocin 2 % topical ointment 1 applic topical BID #1 5 grams 08/13/24 duloxetine 60 mg capsule,delayed 60 mg PO DAILY #90 ca ps 08/29/24 release apixaban 5 mg tablet (Eliquis) 5 mg PO BID #180 tabs 0 09/12/24 epinephrine 0.3 mg/0.3 mL 0.3 mg (0.3 mL) IM Q5-15M MI N bee 09/12/24 injection, auto-injector sting/anaphylaxis #2 ea ezetimibe 10 mg tablet 10 mg PO DAILY #90 tabs 08/17 10/10 gabapentin 600 mg tablet See Rx Instructions PO TID # 315 09/12/24 (Neurontin) tabs polyethylene glycol 3350 17 17 g PO DAILY #238 grams 0 09/12/24 gram/dose oral powder (Miralax) rosuvastatin 5 mg tablet 5 mg PO DAILY #90 tabs 09/12 levothyroxine 100 mcg tablet 100 mcg PO QAM #90 tabs 0 10/18/24 sulfamethoxazole 800 1 tab PO BID 7 days #14 tabs 10/31/24 mg-trimethoprim 160 mg tablet doxycycline hyclate 100 mg capsule 100 mg PO BID 7 day s #14 caps 11/02/24 Allergies Allergy/AdvReac Type Severity Reaction Status Date / Time venom-honey bee (bee venom Allergy Mild LOCALIZED Verified 10/31/24 07:26 (honey bee)) SWELLING atorvastatin (ATORVASTATIN) AdvReac Unknown MOOD Verified 10/31/24 07:26 DISORDER, ANGER Review of Systems Review of Systems ROS Unobtainable: All systems reviewed & are unremarkable except as noted in HPI and below Patient History Medical History Facet arthropathy, lumbar Lumbar stenosis with neurogenic claudication H/O severe sun exposure Nose abnormality Mental status change resolved Left arm weakness Colon cancer high risk Excessive daytime sleepiness Obstructive sleep apnea of adult Lumbar radiculopathy Lumbar degenerative disc disease Spinal stenosis (~2012) Foot pain Chronic back pain Carpal tunnel syndrome Infection of pelvis Osteomyelitis (~2000) Mumps MRSA (methicillin resistant Staphylococcus aureus) Measles Chicken pox Hearing loss Cataract GERD (gastroesophageal reflux disease) (~1999) Hypothyroidism (~1999) Hyperlipidemia (~1993) Kidney disease (~2014) BPH (benign prostatic hyperplasia) (~1999) Stage 3 chronic kidney disease (02/26/15) Hypertension Mitral valve insufficiency Aortic valve regurgitation Benign prostatic hyperplasia with nocturia Paroxysmal atrial fibrillation Surgical History History of spinal surgery (~2012) Status post transurethral resection of prostate (~2009) Family History Mother No problems noted. Social History marital status: (to Bucky) details: lives in [place] number of children: 2 household members: spouse lives independently: Yes caregiver/support person: No housing: house occupational status: previously employed [employer]: [employer] Smoking Status: Never smoker alcohol intake: never substance use type: does not use Smoking Status: Never smoker Exam Narrative Exam Narrative: GENERAL: 79 year old patient appears stated age. Well-developed patient, in no acute distress. HEAD: Atraumatic. Normocephalic. EYES: No scleral icterus. No injection or drainage. NECK: Trachea midline. Cervical ROM intact. CARDIOVASCULAR: Regular rate and rhythm. Systolic murmur present. RESPIRATORY: ?Nonlabored respirations. ?Speaking in clear, full sentences. ?Clear to auscultation. Breath sounds equal bilaterally. No wheezes, rales, or rhonchi. ? GASTROINTESTINAL: Abdomen soft, non-tender, nondistended. EXTREMITIES: On the Right thigh, posterior/lateral/proximal region just below the gluteal crease, there is a 15 cm circumferential area of erythema, cellulitic, with a 3 cm dark erythematous indurated center. Erythema is blanchable. No active drainage or fluctuance. Erythema extends beyond the marked borders that were drawn earlier today. NEURO: AOx3. ?Clear speech. ?Moves all 4 extremities appropriately. SKIN: Right thigh infection described above. Initial Vital Signs Initial Vital Signs: Vital Signs Temperature 98.5 F 11/02/24 13:29 Pulse Rate 89 11/02/24 13:29 Respiratory Rate 18 11/02/24 13:29 Blood Pressure 121/63 11/02/24 13:29 Pulse Oximetry 96 11/02/24 13:29 Oxygen Delivery Method Room Air 11/02/24 13:29 Course Orders Ordered: ED Orders 11/02/24 14:52 CT LE RT w con Stat 11/02/24 15:07 CRP [C-Reactive Protein Quant] Stat Complete Blood Count AUTO DIFF Stat Comprehensive Metabolic Panel Stat Lactate (Lactic Acid) Stat 11/02/24 16:00 Blood Culture Stat Discontinued Medications Hydrocodone Bitart/Acetaminophen (Hydrocodone/Acet 5/325 Tablet) 1 tab PO NOW ONE Stop: 11/02/24 14:53 Last Admin: 11/02/24 15:15 Dose: 1 tab Documented By: DANIEL Vancomycin HCl 1,680.555 mg/ (Sodium Chloride) 500 mls @ 250 mls/hr IV NOW ONE Stop: 11/02/24 15:24 Vancomycin HCl/Dextrose (Vancomycin) 1,500 mg in 300 mls @ 150 mls/hr IV NOW ONE Stop: 11/02/24 17:29 Last Infusion: 11/02/24 18:01 Dose: Infused Documented By: Admin: 11/02/24 16:00 Dose: 150 mls/hr Documented By: DANIEL Sodium Chloride (Normal Saline 0.9%) 500 mls @ 500 mls/hr IV BOLUS ONE Stop: 11/02/24 17:15 Last Admin: 11/02/24 17:11 Dose: 500 mls/hr Documented By: DANIEL Vital Signs Vital signs: Vital Signs - 8 hr 11/02/24 13:29 11/02/24 16:15 11/02/24 17:17 Temperature 98.5 F Pulse Rate 89 68 67 Respiratory Rate 18 16 Blood Pressure 121/63 124/62 133/98 H Pulse Oximetry 96 98 98 Oxygen Delivery Method Room Air Room Air MDM - Skin/Abscess/Foreign Bdy Medical Records Attestation: I reviewed the patient's medical records. Lab Data 11/02/24 15:07 11/02/24 15:07 Labs: Lab Results 11/02/24 Range/Units 15:07 WBC 13.7 H (4.5-11.0) X10^3/uL RBC 4.19 L (4.5-5.9) X10^6/uL Hgb 12.5 L (13.5-17.5) g/dL Hct 37.4 L (41-53) % MCV 89.1 (80-100) fL MCH 29.7 (26-34) PG MCHC 33.3 (30-36) % RDW 12.7 (11.6-14.8) % Plt Count 158 (150-400) X10^3/uL Neut % (Auto) 81.4 H (50-75) % Lymph % (Auto) 6.8 L (25-40) % Haakon % (Auto) 9.8 (3-14) % Eos % (Auto) 1.8 L (2-4) % Baso % (Auto) 0.2 (0-2) % Neut # (Auto) 93372 H (2961-7020) /uL Lymph # (Auto) 900 L (1272-8646) /uL Haakon # (Auto) 1400 H (0-900) /uL Eos # (Auto) 200 (0-450) /uL Baso # (Auto) 0 (0-100) /uL Sodium 134 L (137-145) mmol/L Potassium 4.5 (3.4-5.1) mmol/L Chloride 101 (98-107) mmol/L Carbon Dioxide 23 (22-32) mmol/L BUN 29 H (9-20) mg/dL Creatinine 1.76 H (0.66-1.25) mg/dL Estimated GFR 38 L (>60) mL/min BUN/Creatinine Ratio 16.5 (6-22) Glucose 115 H (70-99) mg/dL Lactate 1.3 (0.7-2.1) mmol/L Calcium 9.9 (8.4-10.2) mg/dL Total Bilirubin 0.4 (0.2-1.3) mg/dL AST 35 (17-59) IU/L ALT 31 (<50) IU/L Alkaline Phosphatase 117 (38-126) U/L C-Reactive Protein 4.0 H (<1.0) mg/dL Total Protein 7.6 (6.3-8.2) g/dL Albumin 4.4 (3.5-5.0) g/dL Globulin 3.2 (1.7-4.1) g/dL Albumin/Globulin Ratio 1.4 (1.0-2.8) Imaging Data CT RLE w/ contrast: Radiologist's Impression: PROCEDURE: CT LE RT W CON INDICATIONS: posterior proximal thigh infection; abscess or deep space? TECHNIQUE: After the administration of intravenous contrast, 3 mm axial sections acquired of the right thigh, with coronal and sagittal reformats. COMPARISON: None. FINDINGS: Image quality: Diagnostic. Bones: Generalized degenerative changes are seen, without lytic lesions or periosteal reactions. Soft tissues: Significant soft tissue fatty stranding with increased enhancement can be seen involving the subcutaneous fat of the right posterolateral thigh. No soft tissue gas is seen. No loculated fluid collection is seen. No muscular involvement is seen. Mild prominence of right groin lymph nodes can be seen. Visualized abdominal cavity is within normal limits, without dilated loops of small bowel. No free air or free fluid can be seen. IMPRESSION: Soft tissue cellulitis seen, without soft tissue abscess. No muscular or bony involvement can be seen. Dictated by: Jeremiah Chaudhry M.D. on 11/02/2024 at 16:03 Approved by: Jeremiah Chaudhry M.D. on 11/02/2024 at 16:05 [facility] Narrative Medical decision making narrative: 79-year-old gentleman with a past medical history of AFib on Eliquis, HTN, CKD 3, TAVR, prior MRSA infection who presents to the emergency department for an infection on the right posterior proximal thigh x 5-6 days. Differential diagnosis includes but is not limited to cellulitis, abscess, deep space infection, etc. On exam patient is in no acute distress, nontoxic-appearing, all vital signs within normal limits. SIRS screen negative. Patient does have a significant area of erythema/cellulitis on the right thigh, in the posterior/lateral region just below the gluteal fold. This area has continued to grow over the last 3 days despite being on Bactrim and starting doxycycline this morning. It is extremely indurated. No drainage. Given patient's history, multiple comorbidities, we will obtain CBC, CMP, lactate, CT with IV contrast of this area and treat pain with hydrocodne as requested. Labs reveal WBC 13.7 w/ left shift. Sodium 134, potassium 4.5, BUN 19, creatinine 1.76 which is up from baseline of about 1.33, GFR is 38 today. Glucose 115. Normal lactate 1.3, CRP is elevated 4.0 Calculated LRINEC score is 5, therefore IV antibiotics and serial labs appropriate to monitor response to treatment. CT reveals soft tissue cellulitis without soft tissue abscess, muscular or bony involvement seen. 1740: Discussed all lab work imaging results with the patient. After shared decision-making, patient would feel most comfortable with the admission for cellulitis which has failed oral antibiotics which I am agreeable to. Patient's LRINEC score is 5. CT reveals soft tissue cellulitis without soft tissue abscess, muscular or bony involvement. However given patient's history of multiple comorbidities, prior MRSA infection, I do believe he would benefit from admission for observation. Case discussed with hospitalist Dr. Zhao who graciously accepts the patient for admission to observation. Patient is aware and agreeable to admission, stable for transfer to the floor at this time. Discharge Plan Departure Patient Disposition: Admitted as Observation Clinical Impression: Cellulitis of right thigh, History of MRSA infection CKD (chronic kidney disease) Qualifiers: Chronic kidney disease stage: stage 3 (moderate) Chronic kidney disease stage 3 subtype: stage 3b (GFR 30-44) Qualified Code(s): N18.32 - Chronic kidney disease, stage 3b Admit Date/Time: 11/02/24 18:47 Admit Provider: Tamica Zhao
[2024-11-02 15:21] LABS: Add Manual Diff / Slide Review NO; Hematocrit 37.4 % (41-53); Hemoglobin 12.5 g/dL (13.5-17.5); Lymphocytes Absolute Auto 900 /uL (1100-4500); Mean Corpuscular HGB Conc 33.3 % (30-36); Mean Corpuscular Hemoglobin 29.7 PG (26-34); Mean Corpuscular Volume 89.1 fL (80-100); Platelet Count 158 X10^3/uL (150-400)
[2024-11-02 15:51] LABS: Alanine Aminotransferase 31 IU/L (<50); Albumin 4.4 g/dL (3.5-5.0); Albumin Globulin Ratio 1.4 (1.0-2.8); Alkaline Phosphatase 117 U/L (38-126); Blood Urea Nitrogen 29 mg/dL (9-20); Calcium 9.9 mg/dL (8.4-10.2); Carbon Dioxide 23 mmol/L (22-32); Chloride 101 mmol/L (98-107); Estimated Glomerular Filt Rate 38 mL/min (>60); Globulin 3.2 g/dL (1.7-4.1); Glucose 115 mg/dL (70-99); HEMOLYSIS < 15 (0-50); Potassium 4.5 mmol/L (3.4-5.1); Sodium 134 mmol/L (137-145); Total Protein 7.6 g/dL (6.3-8.2)
[2024-11-02 15:52] LABS: Lactate (Lactic Acid) 1.3 mmol/L (0.7-2.1)
[2024-11-02] MEDS: VANCOMYCIN 1,500 MG/300 ML PIGGYBACK 150 MG IV (16:00)
[2024-11-02 16:15] VITALS: BP 124/62; PULSE 68; RESP 16; O2SAT 98
[2024-11-02] MEDS: SODIUM CHLORIDE 0.9% 500 ML IV (17:11)
[2024-11-02 17:17] VITALS: BP 133/98; PULSE 67; O2SAT 98
[2024-11-02 20:12] VITALS: BMI 31.7
[2024-11-02 20:20] VITALS: BP 145/84; PULSE 75; RESP 18; TEMP 36.7; O2SAT 99
[2024-11-02 21:01] VITALS: BP 145/84; PULSE 78
[2024-11-02] MEDS: DOXAZOSIN 2 MG TABLET 8 MG PO (21:01)
[2024-11-02] MEDS: APIXABAN 5 MG TABLET PO (21:05)
[2024-11-02] MEDS: ONDANSETRON 4 MG ODT PO (21:05)
[2024-11-02] MEDS: GABAPENTIN 600 MG TABLET 900 MG PO (21:06)
[2024-11-02] MEDS: SODIUM CHLORIDE 0.9% 1,000 ML 100 ML IV (21:07)
[2024-11-02] MEDS: ACETAMINOPHEN 325 MG TABLET 650 MG PO (21:17)
--- NOTE | 2024-11-02 22:58 | PC.RNWOUND ---
right tight/hip cellulitis
--- NOTE | 2024-11-02 23:01 | PC.NURSE ---
Patient refused Atorvastatin d/t the patient stating that he is allergic to the medication and that he does not even take that medication. BITA Mei did not give medication and looked at the allergy symptom that was charted and educated patient on why it was verified even though it is a allergy and patient still refused the medication. BITA Mei requested a D/C of the medication in the APR from Dr. Zhao. Patients admission assessment and wound photos were completed and taken, along with verifying home medications with Bucky and patient. Patient in no distress, AnOx4 and had no further concerns and/or questions at this time.
[2024-11-03 04:45] VITALS: BP 90/52; PULSE 66; RESP 18; TEMP 36.6; O2SAT 93
[2024-11-03 05:27] LABS: Add Manual Diff / Slide Review NO; Hematocrit 33.4 % (41-53); Hemoglobin 11.4 g/dL (13.5-17.5); Lymphocytes Absolute Auto 1200 /uL (1100-4500); Mean Corpuscular HGB Conc 34.0 % (30-36); Mean Corpuscular Hemoglobin 30.5 PG (26-34); Mean Corpuscular Volume 89.8 fL (80-100); Platelet Count 137 X10^3/uL (150-400)
[2024-11-03 05:38] LABS: Blood Urea Nitrogen 27 mg/dL (9-20); Calcium 9.3 mg/dL (8.4-10.2); Carbon Dioxide 21 mmol/L (22-32); Chloride 107 mmol/L (98-107); Estimated Glomerular Filt Rate 41 mL/min (>60); Glucose 97 mg/dL (70-99); HEMOLYSIS < 15 (0-50); Potassium 4.6 mmol/L (3.4-5.1); Sodium 134 mmol/L (137-145)
[2024-11-03] MEDS: SODIUM CHLORIDE 0.9% 1,000 ML 100 ML IV (06:00)
[2024-11-03] MEDS: LEVOTHYROXINE 100 MCG TABLET PO (06:03)
[2024-11-03 08:00] VITALS: BP 120/69; PULSE 81; RESP 18; TEMP 36.8; O2SAT 97
[2024-11-03 08:30] VITALS: BP 120/69; PULSE 81
[2024-11-03] MEDS: EZETIMIBE 10 MG TABLET PO (08:30)
[2024-11-03] MEDS: APIXABAN 5 MG TABLET PO ×2 (08:30→20:56)
[2024-11-03] MEDS: SPIRONOLACTONE 25 MG TABLET PO (08:32)
[2024-11-03] MEDS: ACETAMINOPHEN 325 MG TABLET 650 MG PO ×2 (08:32→20:56)
[2024-11-03] MEDS: FLUTICASONE 120 SPRAY/16 GM SPRAY.SUSP NASAL (08:32)
[2024-11-03] MEDS: GABAPENTIN 600 MG TABLET PO ×2 (08:42→12:06)
--- NOTE | 2024-11-03 09:37 | PM.HP.IH.1 ---
History of Present Illness History of Present Illness Date Patient Seen: 11/03/24 Time Patient Seen: 09:38 Chief complaint: MRSA on buttocks Narrative: Patient is an 79-year-old male with a past medical history of chronic kidney disease history of recurrent MRSA infection lumbar degenerative disc disease obstructive sleep apnea atrial fibrillation status post cardiac ablation status post transient aortic valve replacement hypothyroidism BPH. Patient has a history of cellulitis and MRSA infection. Patient was seen in the walk-in clinic on October 31 he was concerned that maybe was having MRSA came came back. He had a pimple on the right gluteal fold. He was started on Bactrim. Culture was taken. He returned to couple of days later saying that symptoms were getting worse and there was more redness. He then was switched from the Bactrim to the doxycycline. He presented to the emergency department yesterday with increasing redness and swelling. And concerns about feeling a topical and oral medication. In the emergency department he was seen and evaluated. His blood work was showing a normal white blood cell count of 9.3 chronic kidney disease with a GFR of 41 CRP mildly elevated at 4.0. CT scan shows cellulitis of the right posterior leg and buttock area without signs of abscess. Vitals on admission to the hospital patient was afebrile. Not significantly tachycardic and blood pressure was normal. He was admitted to the hospital for IV antibiotics. His previous culture of the area done in the walk-in clinic shows methicillin-resistant Staph aureus. [facility] Medical History Facet arthropathy, lumbar Lumbar stenosis with neurogenic claudication H/O severe sun exposure Nose abnormality Mental status change resolved Left arm weakness Colon cancer high risk Excessive daytime sleepiness Obstructive sleep apnea of adult Lumbar radiculopathy Lumbar degenerative disc disease Spinal stenosis (~2012) Foot pain Chronic back pain Carpal tunnel syndrome Infection of pelvis Osteomyelitis (~2000) Mumps MRSA (methicillin resistant Staphylococcus aureus) Measles Chicken pox Hearing loss Cataract GERD (gastroesophageal reflux disease) (~1999) Hypothyroidism (~1999) Hyperlipidemia (~1993) Kidney disease (~2014) BPH (benign prostatic hyperplasia) (~1999) Stage 3 chronic kidney disease (02/26/15) Hypertension Mitral valve insufficiency Aortic valve regurgitation Benign prostatic hyperplasia with nocturia Paroxysmal atrial fibrillation Surgical History History of spinal surgery (~2012) Status post transurethral resection of prostate (~2009) Family History Mother No problems noted. Social History marital status: (to Bucky) details: lives in [place] number of children: 2 household members: spouse lives independently: Yes caregiver/support person: No housing: house occupational status: previously employed lyssa/orthodox: [employer] Smoking Status: Never smoker alcohol intake: never substance use type: does not use Meds Home Medications and Allergies Home Medications ?Medication ?Instructions ?Recorded ?Confirmed ?Type betamethasone dipropionate 0.05 % 1 applic topical BID PRN rash #120 05/05/23 11/02/24 Rx topical cream grams clobetasol 0.05 % topical cream 1 applic topical QAM AND QPM #320 05/05/23 11/02/24 Rx grams doxazosin 8 mg tablet 8 mg PO HS #90 tabs 08/24/23 11/02/24 Rx spironolactone 25 mg tablet 25 mg PO DAILY #90 tabs 04/25/24 11/02/24 Rx lisinopril 40 mg tablet 40 mg PO DAILY #90 tabs 04/26/24 11/02/24 Rx fluticasone propionate 50 1 spray intranasal DAILY #16 grams 05/03/24 11/02/24 Rx mcg/actuation nasal spray,suspension (Flonase Allergy Relief) amlodipine 5 mg tablet 5 mg PO BID #180 tabs 06/22/24 11/02/24 Rx chlorhexidine gluconate 4 % 1 applic topical DAILY #473 mL 08/13/24 11/02/24 Rx topical liquid mupirocin 2 % topical ointment 1 applic topical BID #15 grams 08/13/24 11/02/24 Rx duloxetine 60 mg capsule,delayed 60 mg PO DAILY #90 caps 08/29/24 11/02/24 Rx release apixaban 5 mg tablet (Eliquis) 5 mg PO BID #180 tabs 09/12/24 11/02/24 Rx epinephrine 0.3 mg/0.3 mL 0.3 mg (0.3 mL) IM Q5-15M PRN bee 09/12/24 11/02/24 Rx injection, auto-injector sting/anaphylaxis #2 ea ezetimibe 10 mg tablet 10 mg PO DAILY #90 tabs 09/12/24 11/02/24 Rx gabapentin 600 mg tablet See Rx Instructions PO TID #315 09/12/24 11/02/24 Rx (Neurontin) tabs polyethylene glycol 3350 17 17 g PO DAILY #238 grams 09/12/24 11/02/24 Rx gram/dose oral powder (Miralax) rosuvastatin 5 mg tablet 5 mg PO DAILY #90 tabs 09/12/24 11/02/24 Rx levothyroxine 100 mcg tablet 100 mcg PO QAM #90 tabs 10/18/24 11/02/24 Rx Allergies Allergy/AdvReac Type Severity Reaction Status Date / Time venom-honey bee (bee venom Allergy Mild LOCALIZED Verified 10/31/24 07:26 (honey bee)) SWELLING atorvastatin (ATORVASTATIN) AdvReac Unknown MOOD Verified 10/31/24 07:26 DISORDER, ANGER Exam Vital Signs (past 8 hours): - 11/03/24 04:45 11/03/24 08:00 11/03/24 08:30 Temperature 97.8 F 98.2 F Pulse Rate 66 81 81 Respiratory Rate 18 18 Blood Pressure 90/52 L 120/69 120/69 Pulse Oximetry 93 97 Oxygen Flow Rate 0 0 Oxygen Delivery Method Room Air Oxygen Flow Rate 0 Objective Labs 11/03/24 04:52 11/03/24 04:52 Labs: Laboratory Results - last 24 hr 11/02/24 11/03/24 15:07 04:52 WBC 13.7 H 9.3 RBC 4.19 L 3.72 L Hgb 12.5 L 11.4 L Hct 37.4 L 33.4 L MCV 89.1 89.8 MCH 29.7 30.5 MCHC 33.3 34.0 RDW 12.7 13.1 Plt Count 158 137 L Neut % (Auto) 81.4 H 71.8 Lymph % (Auto) 6.8 L 12.6 L [place] % (Auto) 9.8 10.8 Eos % (Auto) 1.8 L 4.6 H Baso % (Auto) 0.2 0.2 Neut # (Auto) 88121 H 6700 Lymph # (Auto) 900 L 1200 [place] # (Auto) 1400 H 1000 H Eos # (Auto) 200 400 Baso # (Auto) 0 0 Sodium 134 L 134 L Potassium 4.5 4.6 Chloride 101 107 Carbon Dioxide 23 21 L BUN 29 H 27 H Creatinine 1.76 H 1.67 H Estimated GFR 38 L 41 L BUN/Creatinine Ratio 16.5 16.2 Glucose 115 H 97 Lactate 1.3 Calcium 9.9 9.3 Total Bilirubin 0.4 AST 35 ALT 31 Alkaline Phosphatase 117 C-Reactive Protein 4.0 H Total Protein 7.6 Albumin 4.4 Globulin 3.2 Albumin/Globulin Ratio 1.4 Assessment & Plan Assessment and plan (1) History of MRSA infection: Status: Acute (2) MRSA cellulitis: Status: Acute Plan Methicillin-resistant Staph aureus cellulitis of the subcutaneous area of right posterior lateral thigh. Patient was admitted to the hospitalist he has failed outpatient antibiotic therapy with doxycycline and Bactrim. He was started on IV vancomycin in the hospital. We will continue to monitor progression of this make sure that this does not turn into the further infection abscess or fasciitis. Vancomycin will be dosed by pharmacy. Will continue to monitor white blood cell count vitals temperature and response to treatment. CKD stage 3c patient has decreased kidney function with an EGFR of 41. Slightly worsened over current baseline. He has been getting some IV fluids here in the hospital normal saline. We will continue to check electrolytes and kidney function. His vancomycin will be renally dosed per pharmacy protocol. We will go ahead and stop IV fluids at this point as he is hydrating well orally. Atrial fibrillation status post ablation patient is on apixaban 5 mg this will be continued during his hospital stay. We will monitor his heart rate for tachycardia. Current pulse rate is in the normal range. Valvular heart disease status post TAVR procedure chronic and stable. Hypertension patient is on antihypertensive medication his antihypertensive medication will be continued during his hospital stay and will monitor his blood pressure. BPH. Patient is on doxazosin this will be continued no urinary discomfort or difficulty with voiding. Lumbar degenerative disc disease status post recent steroid injection he says things are going well there. He will be continued with his gabapentin during the hospital. Obstructive sleep apnea. On CPAP at home. Disposition and plan. Anticipate hospitalization greater than 2 midnights for treatment of his cellulitis. Time-Based Coding :: [TOTAL MINUTES] spent with patient and on the chart (including review of chart, obtaining history, exam, reviewing outside data, placing orders, documenting exam and treatment plan, and counseling patient) on [DATE]. PROFEE Industrial Technician Document charge(s): Yes Charge Codes Initial inpatient/observation care: 70522
--- NOTE | 2024-11-03 12:37 | CM.DANOTE ---
Initial DCP Assessment Visit Note Reviewed EMR and team rounds for pt's medical status and updates. Pt lives independently in his own home w/spouse here in [place]. His spouse will transport him home once he's medically cleared for d/c. Payor: [place] PCP: Dr. Griffith Pt is a 79 year-old M who presented to the ED with c/o a worsening red, painful, swollen lesion on his R-outer thigh/buttock that started as what appeared to be a pimple, then became much larger/red/painful after about 6-days, despite having been taking oral antibiotics for it. He has a prior hx of MRSa infections as well as several comorbidities. Labs were positive for MRSA, CT imaging showed soft tissue cellulitus. Plan was made to admit for symptom control and IV antibiotics. DCP will continue to monitor for any further evolving d/c needs. Discharge Planning/Care Management Advanced directive, confirm from FAMILY Start: 11/02/24 21:35 Freq: Q24H Status: Active Protocol: Document 11/02/24 21:35 TD (Rec: 11/02/24 22:42 TD [id number]) Advance Directive, confirm on record Time 22:00 Person contacted Bucky () Copy received No CM Discharge Assessment Start: 11/02/24 20:12 Freq: Status: Active Protocol: Document 11/03/24 12:33 DPL (Rec: 11/03/24 12:35 DPL [id number]) Discharge Planning Assessment Assigned Discharge DeenaNARA garcia Make Ready Worker Insurance [facility] Advance Directives? Yes Advance Directives No on File History Provided By Medical Record Has Patient been No admitted in last 30 days? Prior Living House Arrangements Household Members spouse Type of Drives own vehicle transporation used prior to admit Independent with ADL Yes 's Is patient alert and Yes oriented? Caregiver for No Another Comment N/A Comment No OP d/c needs identified at this time. Barriers to No Discharge Discharge Plan Home Referrals Initiated None needed Whiteboard Updated Yes in Patient Room with name and ext. # of [employer] Open Stack Administrator Review Status In Process Please Provide Date 11/03/24 Initial DC Assessment Was Performed
[2024-11-03] MEDS: VANCOMYCIN 1,500 MG/300 ML PIGGYBACK 200 MG IV (15:03)
[2024-11-03 16:17] VITALS: BP 124/66; PULSE 72; RESP 15; TEMP 36.7; O2SAT 96
[2024-11-03 20:00] VITALS: BP 136/80; PULSE 72; RESP 18; TEMP 37.3; O2SAT 96
[2024-11-03 20:55] VITALS: BP 136/80; PULSE 72
[2024-11-03] MEDS: DOXAZOSIN 2 MG TABLET 8 MG PO (20:55)
[2024-11-03] MEDS: GABAPENTIN 600 MG TABLET 900 MG PO (20:56)
[2024-11-04 04:00] VITALS: BP 117/70; PULSE 56; RESP 18; TEMP 36.5; O2SAT 97
[2024-11-04 05:51] LABS: Add Manual Diff / Slide Review NO; Hematocrit 34.0 % (41-53); Hemoglobin 11.6 g/dL (13.5-17.5); Lymphocytes Absolute Auto 1300 /uL (1100-4500); Mean Corpuscular HGB Conc 34.0 % (30-36); Mean Corpuscular Hemoglobin 30.3 PG (26-34); Mean Corpuscular Volume 89.3 fL (80-100); Platelet Count 152 X10^3/uL (150-400)
[2024-11-04] MEDS: LEVOTHYROXINE 100 MCG TABLET PO (06:03)
[2024-11-04 06:05] LABS: Alanine Aminotransferase 23 IU/L (<50); Albumin 3.5 g/dL (3.5-5.0); Albumin Globulin Ratio 1.2 (1.0-2.8); Alkaline Phosphatase 90 U/L (38-126); Blood Urea Nitrogen 28 mg/dL (9-20); Calcium 9.4 mg/dL (8.4-10.2); Carbon Dioxide 22 mmol/L (22-32); Chloride 106 mmol/L (98-107); Estimated Glomerular Filt Rate 41 mL/min (>60); Globulin 2.9 g/dL (1.7-4.1); Glucose 95 mg/dL (70-99); HEMOLYSIS < 15 (0-50); Potassium 4.7 mmol/L (3.4-5.1); Sodium 134 mmol/L (137-145); Total Protein 6.4 g/dL (6.3-8.2)
[2024-11-04 07:22] VITALS: BP 104/64; PULSE 68; RESP 14; TEMP 36.8; O2SAT 98
[2024-11-04] MEDS: SPIRONOLACTONE 25 MG TABLET PO (08:37)
[2024-11-04] MEDS: APIXABAN 5 MG TABLET PO (08:38)
[2024-11-04] MEDS: EZETIMIBE 10 MG TABLET PO (08:38)
--- NOTE | 2024-11-04 08:39 | PM.PN.IH.1 ---
Subjective Subjective Date Patient Seen: 11/04/24 Time Patient Seen: 08:39 Interval history: Patient seen and evaluated this morning. Reviewed laboratory testing and vitals discussed care with nurse. Patient did well overnight required 1 Vicodin yesterday afternoon for pain. Was up able to ambulate in the chair shower. He is eating well and tolerating that his diet. Bowel movement not yet. He is taking MiraLax. Heart rate looks good not significantly tachycardic. He is afebrile blood pressure is a little bit low. Still having some tenderness to his right posterior leg and buttock area due to cellulitis. Exam Vital Signs (past 8 hours): - 11/04/24 04:00 11/04/24 07:22 Temperature 97.7 F 98.2 F Pulse Rate 56 L 68 Respiratory Rate 18 14 Blood Pressure 117/70 104/64 Pulse Oximetry 97 98 Oxygen Flow Rate 0 0 Oxygen Delivery Method Room Air Oxygen Flow Rate 0 Narrative Exam Narrative: Gen.: Alert good historian HEENT: Pupils equal round and reactive or mucosa is moist Cardio: S1-S2 regular rate and rhythm no murmurs appreciated. Respiratory: Lungs are clear to auscultation no wheezes or crackles normal respiratory effort. Abdomen: Soft nontender no rebound or guarding no liver spleen enlargement no appreciable hernias Extremities: Patient has redness. No fluctuance or signs of abscess to his right posterior upper thigh and buttock area Objective Labs 11/04/24 04:56 11/04/24 04:56 Labs: Laboratory Results - last 24 hr 11/04/24 04:56 WBC 8.7 RBC 3.81 L Hgb 11.6 L Hct 34.0 L MCV 89.3 MCH 30.3 MCHC 34.0 RDW 13.0 Plt Count 152 Neut % (Auto) 69.1 Lymph % (Auto) 14.8 L [place] % (Auto) 10.3 Eos % (Auto) 5.5 H Baso % (Auto) 0.3 Neut # (Auto) 6000 Lymph # (Auto) 1300 [place] # (Auto) 900 Eos # (Auto) 500 H Baso # (Auto) 0 Sodium 134 L Potassium 4.7 Chloride 106 Carbon Dioxide 22 BUN 28 H Creatinine 1.66 H Estimated GFR 41 L BUN/Creatinine Ratio 16.9 Glucose 95 Calcium 9.4 Total Bilirubin 0.3 AST 27 ALT 23 Alkaline Phosphatase 90 Total Protein 6.4 Albumin 3.5 Globulin 2.9 Albumin/Globulin Ratio 1.2 [facility] Medical History Facet arthropathy, lumbar Lumbar stenosis with neurogenic claudication H/O severe sun exposure Nose abnormality Mental status change resolved Left arm weakness Colon cancer high risk Excessive daytime sleepiness Obstructive sleep apnea of adult Lumbar radiculopathy Lumbar degenerative disc disease Spinal stenosis (~2012) Foot pain Chronic back pain Carpal tunnel syndrome Infection of pelvis Osteomyelitis (~2000) Mumps MRSA (methicillin resistant Staphylococcus aureus) Measles Chicken pox Hearing loss Cataract GERD (gastroesophageal reflux disease) (~1999) Hypothyroidism (~1999) Hyperlipidemia (~1993) Kidney disease (~2014) BPH (benign prostatic hyperplasia) (~1999) Stage 3 chronic kidney disease (02/26/15) Hypertension Mitral valve insufficiency Aortic valve regurgitation Benign prostatic hyperplasia with nocturia Paroxysmal atrial fibrillation Surgical History History of spinal surgery (~2012) Status post transurethral resection of prostate (~2009) Family History Mother No problems noted. Social History marital status: (to Bucky) details: lives in [place] number of children: 2 household members: spouse lives independently: Yes caregiver/support person: No housing: house occupational status: previously employed lyssa/taoism: [employer] Smoking Status: Never smoker alcohol intake: never substance use type: does not use Assessment & Plan Assessment and plan (1) MRSA cellulitis: Status: Acute Plan Methicillin-resistant Staph aureus cellulitis of the subcutaneous area of right posterior lateral thigh. Patient on IV vancomycin pharmacy dosing. Patient has clinically improved from yesterday. Still quite tender red there is not a lot of heat. The redness has decreased from admission. We will continue to need IV vancomycin today tomorrow possible DC on Thursday. CKD stage 3c. Kidney function is stable today. BUN and creatinine continued to be monitored as well as electrolytes. IV fluids were stopped yesterday he is tolerating oral diet. Renal dose vancomycin Atrial fibrillation status post ablation. No signs of rapid heart rate. Patient will be continued on his anticoagulation Valvular heart disease status post TAVR procedure chronic and stable. Hypertension patient's blood pressure is normal today a little bit on the low side we will continue his antihypertensive medication Acquired hypothyroidism. Patient is on thyroid replacement this will be continued. BPH. Patient is on doxazosin this will be continued no urinary discomfort or difficulty with voiding. Mood disorder. Patient is on duloxetine 60 mg this will be continued. Lumbar degenerative disc disease status post recent steroid injection he says things are going well there. He is on gabapentin we will continue his gabapentin that he takes from home. Hyperlipidemia. Patient on rosuvastatin and Zetia. Obstructive sleep apnea. On CPAP at home. DVT prophylaxis patient is anticoagulated Disposition and plan. I will call in a prescription for linezolid to local pharmacy to see if this is covered by insurance and or patient and can afford. If they can patient will require another 48 hours of IV vancomycin discharge on Thursday with linezolid. If this is not covered patient possibly will need a PICC line for vancomycin at home for additional days. Or if clinically responding well could go home with regular doxycycline. Time-Based Coding :: [TOTAL MINUTES] spent with patient and on the chart (including review of chart, obtaining history, exam, reviewing outside data, placing orders, documenting exam and treatment plan, and counseling patient) on [DATE]. PROFEE Residential Solar Sales Consultant Document charge(s): Yes Charge Codes Subsequent inpatient/observation care: [id number]
[2024-11-04] MEDS: GABAPENTIN 600 MG TABLET PO ×2 (08:40→13:10)
[2024-11-04] MEDS: FLUTICASONE 120 SPRAY/16 GM SPRAY.SUSP NASAL (08:42)
--- NOTE | 2024-11-04 10:27 | CM.DPC ---
DCP Cont. Reviewed EMR and team rounds for pt's medical status and updates. Per Hospitalist, pt will need 1-more night before medically cleared for home d/c. Monitoring for final needs.
[2024-11-04] MEDS: VANCOMYCIN 1,500 MG/300 ML PIGGYBACK 200 MG IV (14:41)
[2024-11-04 19:00] VITALS: BP 128/75; PULSE 77; RESP 18; TEMP 36.8; O2SAT 97
[2024-11-04] MEDS: APIXABAN 5 MG TABLET 2.5 MG PO (20:20)
[2024-11-04] MEDS: GABAPENTIN 600 MG TABLET 900 MG PO (20:20)
[2024-11-04 20:21] VITALS: BP 128/75; PULSE 74
[2024-11-04] MEDS: ACETAMINOPHEN 325 MG TABLET 650 MG PO (20:21)
[2024-11-04] MEDS: DOXAZOSIN 2 MG TABLET 8 MG PO (20:21)
[2024-11-04] MEDS: SODIUM CHLORIDE 0.9% FLUSH 10 ML IV (22:57)
[2024-11-05] MEDS: LEVOTHYROXINE 100 MCG TABLET PO (06:02)
--- NOTE | 2024-11-05 09:59 | P.PN_ITS ---
Subjective Subjective Date Patient Seen: 11/05/24 Interval history: Feeling well this morning. Reports discomfort in overall size of induration on back of leg is significantly smaller compared to yesterday. Exam Vital Signs (past 8 hours): Oxygen Delivery Method CPAP Oxygen Flow Rate 0 Narrative Exam Narrative: General: Pleasant, NAD HEENT: NC/AT, EOMI, moist membranes CV: RRR, normal S1-S2, no m/g/r Resp: CTAB, comfortable WOB Abd: Soft, NTND, +BS Ext: No edema Skin: 3 x 5 of erythema with central induration and calor on R posterior upper thigh and buttock, no fluctuance or sign of abscess Neuro: A&O x3, moves all extremities, no focal deficits Objective Labs 11/06/24 09:42 11/06/24 09:42 [facility] Medical History Facet arthropathy, lumbar Lumbar stenosis with neurogenic claudication H/O severe sun exposure Nose abnormality Mental status change resolved Left arm weakness Colon cancer high risk Excessive daytime sleepiness Obstructive sleep apnea of adult Lumbar radiculopathy Lumbar degenerative disc disease Spinal stenosis (~2012) Foot pain Chronic back pain Carpal tunnel syndrome Infection of pelvis Osteomyelitis (~2000) Mumps MRSA (methicillin resistant Staphylococcus aureus) Measles Chicken pox Hearing loss Cataract GERD (gastroesophageal reflux disease) (~1999) Hypothyroidism (~1999) Hyperlipidemia (~1993) Kidney disease (~2014) BPH (benign prostatic hyperplasia) (~1999) Stage 3 chronic kidney disease (02/26/15) Hypertension Mitral valve insufficiency Aortic valve regurgitation Benign prostatic hyperplasia with nocturia Paroxysmal atrial fibrillation Surgical History History of spinal surgery (~2012) Status post transurethral resection of prostate (~2009) Family History Mother No problems noted. 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 Clinically improved per patient, less tenderness and erythema. -IV vancomycin per pharmacy dosing -linezolid 600mg p.o BID for additional 5 days after discharge -chlorhexidine + mupirocin decolonization protocol x6 months #CKD stage 3b Stable, tolerating oral diet. -renal dose vancomycin -trend bmp #AFib s/p ablation Rate controlled -home apixaban #valvular heart disease s/p TAVR Chronic, stable. #hypertension -home amlodpine, lisinopril #acquired hypothyroidism -home levothyroxine #BPH -home doxazosin #mood disorder -home duloxetine #lumbar degenerative disc disease Stable s/p recent MARLI. -home gabapentin #hyperlipidemia -home rosuvastatin, ezetimibe #SUKI On CPAP at home. DVT prophylaxis patient is anticoagulated Dispo: Likely home tomorrow after additional 24 hours of IV vancomycin Diet: Regular DVT ppx: DOAC Code: Full PCP: Gladis MDM: Spouse Time-Based Coding :: 30 minutes spent with patient and on the chart (including review of chart, obtaining history, exam, reviewing outside data, placing orders, documenting exam and treatment plan, and counseling patient) on 11/05/2024. PROFEE Tool And Die Maker Level Five Document charge(s): Yes Charge Codes Subsequent inpatient/observation care: [id number]
[2024-11-05 10:11] VITALS: BP 112/65; PULSE 70
[2024-11-05] MEDS: SPIRONOLACTONE 25 MG TABLET PO (10:11)
[2024-11-05] MEDS: EZETIMIBE 10 MG TABLET PO (10:12)
[2024-11-05] MEDS: GABAPENTIN 600 MG TABLET PO ×2 (10:13→12:16)
[2024-11-05] MEDS: FLUTICASONE 120 SPRAY/16 GM SPRAY.SUSP NASAL (10:14)
[2024-11-05] MEDS: APIXABAN 5 MG TABLET 2.5 MG PO ×2 (10:15→21:17)
[2024-11-05] MEDS: SODIUM CHLORIDE 0.9% FLUSH 10 ML IV ×2 (10:16→21:19)
[2024-11-05] MEDS: VANCOMYCIN TROUGH 1 REQUEST MISC (15:10)
[2024-11-05] MEDS: VANCOMYCIN 1,500 MG/300 ML PIGGYBACK 200 MG IV (16:05)
[2024-11-05 16:07] LABS: Add Manual Diff / Slide Review NO; Hematocrit 36.5 % (41-53); Hemoglobin 12.3 g/dL (13.5-17.5); Lymphocytes Absolute Auto 1000 /uL (1100-4500); Mean Corpuscular HGB Conc 33.8 % (30-36); Mean Corpuscular Hemoglobin 30.2 PG (26-34); Mean Corpuscular Volume 89.4 fL (80-100); Platelet Count 174 X10^3/uL (150-400)
[2024-11-05 16:27] LABS: Lactate (Lactic Acid) 1.0 mmol/L (0.7-2.1)
--- NOTE | 2024-11-05 18:19 | PC.NURSE ---
Late entry: At approximately 1545 when reassessing the pt, this RN noticed that there was increased redness around the pt's anterior mid L forearm. This RN removed the IV from the site, outlined the area and notified Dr. Esteban of the new finding and concern about the sudden redness with no clear cause with the pt's hx of MRSA and current cellulitis. Dr. Esteban gave verbal orders for repeat blood cultures, CBC, and lactic acid.
[2024-11-05 20:51] VITALS: BP 115/75; PULSE 76; RESP 18; TEMP 36.1; O2SAT 96
[2024-11-05] MEDS: GABAPENTIN 600 MG TABLET 900 MG PO (21:16)
[2024-11-05 21:18] VITALS: BP 115/75; PULSE 76
[2024-11-05] MEDS: DOXAZOSIN 2 MG TABLET 8 MG PO (21:18)
[2024-11-05] MEDS: ACETAMINOPHEN 325 MG TABLET 650 MG PO (21:27)
[2024-11-06] MEDS: LEVOTHYROXINE 100 MCG TABLET PO (07:02)
[2024-11-06 07:41] VITALS: BP 120/75; PULSE 18; RESP 18; TEMP 36.1; O2SAT 98
[2024-11-06] MEDS: GABAPENTIN 600 MG TABLET PO ×2 (09:00→12:24)
[2024-11-06] MEDS: EZETIMIBE 10 MG TABLET PO (09:00)
[2024-11-06] MEDS: SPIRONOLACTONE 25 MG TABLET PO (09:00)
[2024-11-06] MEDS: APIXABAN 5 MG TABLET 2.5 MG PO (09:01)
[2024-11-06] MEDS: FLUTICASONE 120 SPRAY/16 GM SPRAY.SUSP NASAL (09:02)
[2024-11-06] MEDS: SODIUM CHLORIDE 0.9% FLUSH 10 ML IV (09:02)
[2024-11-06 09:53] LABS: Add Manual Diff / Slide Review NO; Hematocrit 38.1 % (41-53); Hemoglobin 12.9 g/dL (13.5-17.5); Lymphocytes Absolute Auto 1000 /uL (1100-4500); Mean Corpuscular HGB Conc 33.8 % (30-36); Mean Corpuscular Hemoglobin 30.1 PG (26-34); Mean Corpuscular Volume 89.1 fL (80-100); Platelet Count 191 X10^3/uL (150-400)
[2024-11-06 10:17] LABS: Blood Urea Nitrogen 29 mg/dL (9-20); Calcium 10.1 mg/dL (8.4-10.2); Carbon Dioxide 23 mmol/L (22-32); Chloride 103 mmol/L (98-107); Estimated Glomerular Filt Rate 47 mL/min (>60); Glucose 113 mg/dL (70-99); HEMOLYSIS < 15 (0-50); Potassium 4.8 mmol/L (3.4-5.1); Sodium 133 mmol/L (137-145)
[2024-11-06] MEDS: VANCOMYCIN 1,500 MG/300 ML PIGGYBACK 200 MG IV (12:24)
--- NOTE | 2024-11-06 12:50 | P.DS_ITS ---
History of Present Illness History of Present Illness Date Patient Seen: 11/06/24 Chief complaint: MRSA on buttocks Narrative: Patient is an 79-year-old male with a past medical history of chronic kidney disease history of recurrent MRSA infection lumbar degenerative disc disease obstructive sleep apnea atrial fibrillation status post cardiac ablation status post transient aortic valve replacement hypothyroidism BPH. Patient has a history of cellulitis and MRSA infection. Patient was seen in the walk-in clinic on October 31 he was concerned that maybe was having MRSA came came back. He had a pimple on the right gluteal fold. He was started on Bactrim. Culture was taken. He returned to couple of days later saying that symptoms were getting worse and there was more redness. He then was switched from the Bactrim to the doxycycline. He presented to the emergency department yesterday with increasing redness and swelling. And concerns about feeling a topical and oral medication. In the emergency department he was seen and evaluated. His blood work was showing a normal white blood cell count of 9.3 chronic kidney disease with a GFR of 41 CRP mildly elevated at 4.0. CT scan shows cellulitis of the right posterior leg and buttock area without signs of abscess. Vitals on admission to the hospital patient was afebrile. Not significantly tachycardic and blood pressure was normal. He was admitted to the hospital for IV antibiotics. His previous culture of the area done in the walk-in clinic shows methicillin- resistant Staph aureus. Discharge Providers Provider Date of admission: 11/02/24 18:47 Discharge Date: 11/06/24 Primary care physician: Bud Griffith MD Discharge provider: Bud Esteban MD Summary Hospital Course Discharge Diagnosis: #MRSA cellulitis #CKD stage 3b #AFib s/p ablation #valvular heart disease s/p TAVR #hypertension #acquired hypothyroidism #BPH #mood disorder #lumbar degenerative disc disease #home gabapentin #hyperlipidemia #SUKI Hospital Course: Admitted for IV antibiotic treatment with vacomycin. He received 4 days of IV treatment with clinical improvement of cellulitis in terms of erythema and calor, as well as overall discomfort from patient perspective. Vital signs remained normal with no fever or tachycardia during hospital stay. Patient discharged home on oral linezolid twice daily for an additional 5 days. He will hold his home duloxetine while taking this medication due to interaction that increases risk of serotonin syndrome. Status at Discharge Cognitive/behavioral status at discharge: at baseline, oriented Functional status at discharge: independent ambulation Overall status at discharge: patient is progressing back to baseline Time Spent with Patient Time spent: Less than 30 minutes Exam Vital Signs (past 8 hours): - 11/06/24 07:41 Temperature 97.0 F L Pulse Rate 18 L Respiratory Rate 18 Blood Pressure 120/75 Pulse Oximetry 98 Oxygen Delivery Method CPAP Oxygen Flow Rate 0 Narrative Exam Narrative: General: Pleasant, NAD HEENT: NC/AT, EOMI, moist membranes CV: RRR, normal S1-S2, no m/g/r Resp: CTAB, comfortable WOB Abd: Soft, NTND, +BS Ext: No edema Skin: 3 x 5 of erythema with central induration and mild calor on R posterior upper thigh and buttock, no fluctuance or sign of abscess Neuro: A&O x3, moves all extremities, no focal deficits Objective Labs 11/06/24 09:42 11/06/24 09:42 Labs: Laboratory Results - last 24 hr 11/05/24 11/05/24 11/06/24 14:27 15:50 09:42 WBC 7.4 6.4 RBC 4.08 L 4.28 L Hgb 12.3 L 12.9 L Hct 36.5 L 38.1 L MCV 89.4 89.1 MCH 30.2 30.1 MCHC 33.8 33.8 RDW 12.8 13.1 Plt Count 174 191 Neut % (Auto) 68.5 70.5 Lymph % (Auto) 14.1 L 15.8 L Gonzales % (Auto) 10.6 7.1 Eos % (Auto) 6.4 H 5.9 H Baso % (Auto) 0.4 0.7 Neut # (Auto) 5100 4500 Lymph # (Auto) 1000 L 1000 L Gonzales # (Auto) 800 500 Eos # (Auto) 500 H 400 Baso # (Auto) 0 0 Sodium 133 L Potassium 4.8 Chloride 103 Carbon Dioxide 23 BUN 29 H Creatinine 1.49 H Estimated GFR 47 L BUN/Creatinine Ratio 19.5 Glucose 113 H Lactate 1.0 Calcium 10.1 Vancomycin Trough 11.0 PFSH Medical History Facet arthropathy, lumbar Lumbar stenosis with neurogenic claudication H/O severe sun exposure Nose abnormality Mental status change resolved Left arm weakness Colon cancer high risk Excessive daytime sleepiness Obstructive sleep apnea of adult Lumbar radiculopathy Lumbar degenerative disc disease Spinal stenosis (~2012) Foot pain Chronic back pain Carpal tunnel syndrome Infection of pelvis Osteomyelitis (~2000) Mumps MRSA (methicillin resistant Staphylococcus aureus) Measles Chicken pox Hearing loss Cataract GERD (gastroesophageal reflux disease) (~1999) Hypothyroidism (~1999) Hyperlipidemia (~1993) Kidney disease (~2014) BPH (benign prostatic hyperplasia) (~1999) Stage 3 chronic kidney disease (02/26/15) Hypertension Mitral valve insufficiency Aortic valve regurgitation Benign prostatic hyperplasia with nocturia Paroxysmal atrial fibrillation Surgical History History of spinal surgery (~2012) Status post transurethral resection of prostate (~2009) Family History Mother No problems noted. Social History marital status: (to Bucky) details: lives in [place] number of children: 2 household members: spouse lives independently: Yes caregiver/support person: No housing: house occupational status: previously employed [employer]: [employer] Smoking Status: Never smoker alcohol intake: never substance use type: does not use Discharge Assessment & Plan Assessment and Plan Assessment: 79-year-old male with a history of recurrent MRSA infection, atrial fibrillation status post cardiac ablation and TAVR, hypothyroidism, CKD, lumbar degenerative disc disease, obstructive sleep apnea, BPH admitted for MRSA cellulitis of the right thigh that failed outpatient therapy. Plan of Treatment: #MRSA cellulitis Affecting subcutaneous area of right posterior upper thigh. Clinically improved, less tenderness and erythema. -s/p IV vancomycin 11/03-11/06 -start linezolid 600mg p.o BID for additional 5 days after discharge -consider outpatient decolonization protocol, some experts suggest a 5-day course in combination with nasal mupirocin and chlorhexidine mouthwash repeated twice monthly for 6 months #CKD stage 3b Stable, tolerating oral diet. -renal dose vancomycin #AFib s/p ablation Rate controlled -home apixaban #valvular heart disease s/p TAVR Chronic, stable. #hypertension -home amlodpine, lisinopril #acquired hypothyroidism -home levothyroxine #BPH -home doxazosin #mood disorder -hold home duloxetine while taking linezolid due to interaction increasing risk of serotonin syndrome #lumbar degenerative disc disease Stable s/p recent MARLI. -home gabapentin #hyperlipidemia -home rosuvastatin, ezetimibe #SUKI On CPAP at home. Discharge Plan Discharge Plan Patient Disposition: Home Discharge orders & Medications Prescriptions: Continued mupirocin 2 % ointment 1 applic topical BID Qty: 15 0RF Patient Comments: ran out Rx Instructions: One application each nostril twice a day for 7 days chlorhexidine gluconate 4 % liquid 1 applic topical DAILY Qty: 473 0RF Rx Instructions: as a single dose shower head to toe daily 7 days betamethasone dipropionate 0.05 % cream 1 applic topical BID PRN (Reason: rash) Qty: 120 3RF clobetasol 0.05 % cream 1 applic TOP QAM AND QPM Qty: 320 3RF doxazosin 8 mg tablet 8 mg PO HS Qty: 90 3RF Rx Instructions: Take one tablet by mouth in the evening spironolactone 25 mg tablet 25 mg PO DAILY Qty: 90 3RF lisinopril 40 mg tablet 40 mg PO DAILY Qty: 90 3RF amlodipine 5 mg tablet 5 mg PO BID Qty: 180 3RF levothyroxine 100 mcg tablet 100 mcg PO QAM Qty: 90 3RF linezolid 600 mg tablet 600 mg PO BID Qty: 10 0RF polyethylene glycol 3350 [Miralax] 17 gram/dose powder 17 g PO DAILY Qty: 238 0RF Eliquis 5 mg tablet 5 mg PO BID Qty: 180 3RF Rx Instructions: Take one tablet by mouth twice daily. epinephrine 0.3 mg/0.3 mL auto-injector 0.3 mg IM Q5-15M PRN (Reason: bee sting/anaphylaxis) Qty: 2 1RF Rx Instructions: do not exceed 3 doses per episode rosuvastatin 5 mg tablet 5 mg PO DAILY Qty: 90 3RF gabapentin [Neurontin] 600 mg tablet See Rx Instructions PO TID Qty: 315 3RF Rx Instructions: take 1 tab QAM, 1 tab QNoon, 1.5 tabs QHS orally three times a day; ezetimibe 10 mg tablet 10 mg PO DAILY Qty: 90 3RF fluticasone propionate [Flonase Allergy Relief] 50 mcg/actuation spray,suspension 1 spray intranasal DAILY Qty: 16 0RF Rx Instructions: administer into each nostril Discontinued duloxetine 60 mg capsule,delayed release(DR/EC) 60 mg PO DAILY Qty: 90 3RF Follow up/Referrals: Bud Griffith MD [Primary Care Provider, Family Practice] Visit Report/Discharge Packet Stand Alone Forms: Patient Portal/API, Stroke Signs & Symptoms Discharge Data Primary Care Provider: Bud Griffith PROFEE Charge Codes Discharge inpatient/observation: [id number]
--- NOTE | 2024-11-06 13:41 | CM.DPC ---
DCP Discharge Home Per MD, pt made progress after a few days on IV abx and transitioned to PO abx and medically stable to discharge home today with outpt f/u and no identified barriers to discharge. Spouse to provide transport home today and no concerns noted. Nia Crawford MSW
--- NOTE | 2024-11-06 15:04 | PC.NURSE ---
D/c packet reviewed with pt and spouse at bedside. Discussed stopping Duloxetine while taking his prescribed antibiotic. Advised pt to follow up with PCP regarding when to resume Duloxetine. IV removed. Pt exited with [employer] to spouse to private vehicle.
== END 2024-11-06 14:53 | disposition home or self-care (01) | DRG 603 ==
LOC: ED 18:45 → AC 19:00
PROVIDERS: Family Medicine; Admitting Provider Family Medicine; Emergency Provider Physician Assistant; PCP Family Medicine; Referring Provider Physician Assistant; Visit Provider Family Medicine
DX: L03.115 Cellulitis of right lower limb (principal); B95.62 Methicillin resistant Staphylococcus aureus infection as the cause of diseases classified elsewhere; N40.0 Benign prostatic hyperplasia without lower urinary tract symptoms; M51.369 Other intervertebral disc degeneration, lumbar region without mention of lumbar back pain or lower extremity pain; G47.33 Obstructive sleep apnea (adult) (pediatric); I12.9 Hypertensive chronic kidney disease with stage 1 through stage 4 chronic kidney disease, or unspecified chronic kidney disease; E03.9 Hypothyroidism, unspecified; E78.5 Hyperlipidemia, unspecified; N18.32 Chronic kidney disease, stage 3b; F39 Unspecified mood [affective] disorder; Z79.890 Hormone replacement therapy; Z95.2 Presence of prosthetic heart valve; Z79.01 Long term (current) use of anticoagulants; Z86.14 Personal history of Methicillin resistant Staphylococcus aureus infection
CPT/HCPCS: 36415; 73701; 80048; 80053; 80202; 83605; 85025; 86140; 87040; 96365; 96366; 99223; 99232; 99233; 99238; 99284; J3375